=== PATIENT | male | born 1940 | race Caucasian/White ===

== ENCOUNTER 2020-02-18 13:18 | Emergency (ER) | payer MEDICARE, MEDICAID ==
[~2020-02-18] VITALS: Ht 160 cm; Wt 53.2 kg
[~2020-02-18 13:18] MED LIST: OMEP-84 PO
[2020-02-18] MEDS ORDERED: pantoprazole 40mg Tablet.DR PO ONE (13:40)
[2020-02-18] MEDS ORDERED: mag hydrox/Alum hydrox/simeth 30ml oral suspension PO ONE (13:40)
[2020-02-18] MEDS ORDERED: ondansetron 4mg rapidly disintigrating tab PO ONE (13:40)
[2020-02-18 14:17] LABS: BASOPHILS % (AUTO) 0.3 % (0-1); EOSINOPHILS % (AUTO) 0.2 % (0-6); HEMATOCRIT 46.8 % (42.0-52.0); HEMOGLOBIN 16.1 g/dl (14.0-17.9); LYMPHOCYTES # (AUTO) 0.9 X10'3 (1.1-4.8); LYMPHOCYTES % (AUTO) 9.5 % (21-51); MEAN CORPUSCULAR HEMOGLOBIN 33.1 PG (27.0-31.0); MEAN CORPUSCULAR HGB CONC 34.4 g/dL (33.0-36.5); MEAN CORPUSCULAR VOLUME 96.3 FL (78-98); MEAN PLATELET VOLUME 7.9 FL (7.4-10.4); MONOCYTES # (AUTO) 0.5 X10'3 (0-0.9); MONOCYTES % (AUTO) 5.5 % (2-12); NEUTROPHILS # (AUTO) 8.1 X10'3 (1.8-7.7); NEUTROPHILS % (AUTO) 84.5 % (42-75); PLATELET COUNT 218 X10'3 (140-440); RED BLOOD COUNT 4.86 X10'6 (4.70-6.10); RED CELL DISTRIBUTION WIDTH 13.4 % (11.5-14.5); WHITE BLOOD COUNT 9.5 X10'3 (4.5-11.0)
[2020-02-18 14:33] LABS: ALANINE AMINOTRANSFERASE 23 U/L (12-78); ALBUMIN 4.4 G/DL (3.4-5.0); ALBUMIN/GLOBULIN RATIO 1.2 (1.1-1.5); ALKALINE PHOSPHATASE 85 IU/L (46-116); ANION GAP 11 (8-16); ASPARTATE AMINO TRANSFERASE 19 U/L (10-37); BILIRUBIN,TOTAL 0.6 MG/DL (0.1-1.0); BLOOD UREA NITROGEN 18 MG/DL (7-18); BUN/CREATININE RATIO 20.2 (5.4-32.0); CALCIUM 10.2 MG/DL (8.5-10.1); CHLORIDE 96 MMOL/L (99-107); CREATININE 0.89 MG/DL (0.60-1.10); GLUCOSE 138 MG/DL (70-104); LIPASE 88 U/L (73-393); POTASSIUM 3.3 MMOL/L (3.5-5.1); SODIUM 142 MMOL/L (135-145); TOTAL CARBON DIOXIDE 35.1 MMOL/L (24-32); TOTAL PROTEIN 8.2 G/DL (6.4-8.2); eGFR 83 ML/MIN
[2020-02-18] MEDS ORDERED: ONDA4TAB6 PO (15:05)
[2020-02-18] MEDS ORDERED: PANT-47 PO (15:05)
== END 2020-02-18 15:38 | disposition home or self-care (01) ==
LOC: ER 13:19
DX: K21.9 Gastro-esophageal reflux disease without esophagitis (principal); R09.89 Other specified symptoms and signs involving the circulatory and respiratory systems; R10.84 Generalized abdominal pain; R51.9 Headache, unspecified; R11.2 Nausea with vomiting, unspecified; R53.83 Other fatigue; F17.200 Nicotine dependence, unspecified, uncomplicated; Z98.890 Other specified postprocedural states; Z87.11 Personal history of peptic ulcer disease; Z72.89 Other problems related to lifestyle; Z79.899 Other long term (current) drug therapy
CPT/HCPCS: 36415; 80053; 83690; 85025; 99284

== ENCOUNTER 2020-08-15 07:49 | Inpatient (IN) | payer OTHER, MEDICAID ==
[2020-08-10 10:34] LABS: PRE OP INR 1.1 INR
[2020-08-10 10:35] LABS: BASOPHILS # (AUTO) 0.1 X10'3 (0-0.2); BASOPHILS % (AUTO) 1.3 % (0-1); EOSINOPHILS # (AUTO) 0.1 X10'3 (0-0.9); EOSINOPHILS % (AUTO) 2.1 % (0-6); LYMPHOCYTES # (AUTO) 1.4 X10'3 (1.1-4.8); LYMPHOCYTES % (AUTO) 19.7 % (21-51); MEAN CORPUSCULAR HEMOGLOBIN 32.7 PG (27.0-31.0); MEAN CORPUSCULAR HGB CONC 33.8 g/dL (33.0-36.5); MEAN CORPUSCULAR VOLUME 96.6 FL (78-98); MEAN PLATELET VOLUME 8.2 FL (7.4-10.4); MONOCYTES # (AUTO) 0.8 X10'3 (0-0.9); MONOCYTES % (AUTO) 11.8 % (2-12); NEUTROPHILS # (AUTO) 4.6 X10'3 (1.8-7.7); NEUTROPHILS % (AUTO) 65.1 % (42-75); PRE OP HEMATOCRIT 41.5 % (42.0-52.0); PRE OP PLATELET COUNT 201 X10'3 (140-440); RED CELL DISTRIBUTION WIDTH 14.9 % (11.5-14.5)
[2020-08-10 10:49] LABS: ALBUMIN 3.6 G/DL (3.4-5.0); BLOOD UREA NITROGEN 22 MG/DL (7-18); BUN/CREATININE RATIO 27.5 (5.4-32.0); CALCIUM 8.7 MG/DL (8.5-10.1); CHLORIDE 104 MMOL/L (99-107); PRE OP ALT 24 U/L (30-65); PRE OP ANION GAP 8 (8-16); PRE OP AST 15 U/L (10-37); PRE OP BILIRUB, TOTAL 0.3 MG/DL (0.0-1.0); PRE OP GLUCOSE 101 MG/DL (70-104); PRE OP POTASSIUM 4.4 MMOL/L (3.4-5.1); PRE OP SODIUM 141 MMOL/L (135-145); TOTAL CARBON DIOXIDE 29.4 MMOL/L (24-32); TOTAL PROTEIN 7.1 G/DL (6.4-8.2); eGFR > 90 ML/MIN
[2020-08-10 11:17] LABS: ALKALINE PHOSPHATASE 90 IU/L (46-116)
[~2020-08-15] VITALS: Ht 162.6 cm; Wt 53.3 kg
[2020-08-15] VITALS (13 sets, daily range): BP systolic 126–157; BP diastolic 73–98
[~2020-08-15 07:49] MED LIST changes: +ACET-3209 PO; +NAPR220C15 PO; -OMEP-84 PO; +PANT-47 PO; +VANCOMYCIN 1GM/200ML IVPB 200 ML IV ONE; +albuterol 2.5 MG/3 ML nebule NEB ONE; +cefazolin/dext.iso 2gm/100ml IV ONE; +famotidine 20mg tablet PO ONE; +ringers solution, lacted 1,000 ML IV SCH; +tranexamic acid 1gm/0.7% sal. 100 ML IV ONE
[2020-08-15] MEDS ORDERED: sevoflurane 250ml liquid IH ONE (09:55)
[2020-08-15] MEDS ORDERED: fentaNYL/PF 50MCG/1 ML 2ML syringe ONE (10:04)
[2020-08-15] MEDS ORDERED: MIDAZolam 1 MG/ML 5ML VIAL ONE (10:04)
[2020-08-15] MEDS ORDERED: ROPIVAcaine 0.5% (5mg/ml) 30ml vial ONE (10:04)
[2020-08-15] MEDS ORDERED: propofol inj 20 ML IV ONE (10:21)
[2020-08-15] MEDS ORDERED: LIDOcaine 1%/PF 5ML 10 MG/ML VIAL ONE ×2 (10:21)
[2020-08-15] MEDS ORDERED: ondansetron/PF 4mg/2ml inj ONE (10:43)
[2020-08-15] MEDS ORDERED: dexamethasone sod phosphate 4mg/ml inj. ONE (10:43)
[2020-08-15] MEDS ORDERED: ringers solution, lacted 1,000 ML IV SCH (11:35)
[2020-08-15] MEDS ORDERED: meperidine/PF 25mg/ml syringe IV PRN ×3 (11:35)
[2020-08-15] MEDS ORDERED: morphine 2 MG/ML inj. syringe IV PRN (11:35)
[2020-08-15] MEDS ORDERED: ondansetron/PF 4mg/2ml inj IV PRN ×2 (11:35→13:30)
[2020-08-15] MEDS ORDERED: morphine 4 MG/ML inj SYRINge IV PRN (11:35)
[2020-08-15] MEDS ORDERED: proCHLORperazine 10 MG/2 ml inj IV PRN (11:35)
[2020-08-15] MEDS ORDERED: vancomycin 1,000mg inj ONE (12:44)
--- NOTE | 2020-08-15 13:20 | NUR ---
Received from OR via , accompanied by Anesthesiologist and report given by Anesthesiolgist. PATIENT WAKING UP, DENIES PAIN, V/S WNL, NEUROVASCULAR CHECKS INTACT. 20G LUE. RIGHT SHOULDER DRESSING CDI IN SLING. SCD ON.
[2020-08-15] MEDS ORDERED: diphenhydrAMINE 25mg capsule PO PRN ×2 (13:30)
[2020-08-15] MEDS ORDERED: HYDROcodone/acetaminophen 10/325mg tab PO PRN (13:30)
[2020-08-15] MEDS ORDERED: magnesium hydroxide 30ml (MOM) UD suspension PO PRN (13:30)
[2020-08-15] MEDS ORDERED: acetaminophen 325mg tablet PO PRN (13:30)
[2020-08-15] MEDS ORDERED: bisacodyl 10mg suppository rectal RC PRN (13:30)
--- NOTE | 2020-08-15 14:10 | NUR ---
PATIENT A&OX4, DENIES PAIN, V/S WNL, NEUROVASCULAR CHECKS INTACT. 20G LUE. RIGHT SHOULDER DRESSING CDI IN SLING. SCD ON. PATIENT TAKEN TO 4014B WITH ALL BELONGINGS AND REPORT GIVEN TO CHARLA HARVEY WHO HAS TAKEN OVER PATIENT CARE,.
[2020-08-15] MEDS: potassium Cl 20mEq in NS 1,000 ML IV SCH (18:53)
--- NOTE | 2020-08-15 18:55 | NUR ---
Received report from Regina Dean.
[2020-08-15] MEDS: ceFAZolin/D5W- 1GM premix 50 ML IV SCH (18:58)
[2020-08-15] MEDS: pantoprazole 40mg Tablet.DR PO SCH (19:50)
[2020-08-15] MEDS: HYDROcodone/acetaminophen 10/325mg tab PO PRN ×2 (19:51→23:22)
[2020-08-15] MEDS ORDERED: VANCOMYCIN 1GM/200ML IVPB 200 ML IV SCH (20:00)
[2020-08-15] MEDS ORDERED: vancomycin/NS 1 GM ADD-VANTAGE 250 ML IV SCH (20:00)
[2020-08-15] MEDS ORDERED: sennosides 8.6mg tablet PO SCH (21:00)
--- NOTE | 2020-08-15 23:45 | NUR ---
Call to Dr. Corona re: pt surgical wound and the persistent bloody drainage with my attempt to slow/collect with ice and abd pads. Dr. Corona ok'd the changing of the dressing on the right shoulder with 4x4's and abd pads and applying a shoulder wrap. Surgical site not well visible with blood stained silver dressing. No bruising noted except for under R arm noted.
[2020-08-16] MEDS: HYDROmorphone 1 mg/ml syringe IV PRN ×2 (00:40→05:40)
[2020-08-16] MEDS: ceFAZolin/D5W- 1GM premix 50 ML IV SCH (00:42)
[2020-08-16 01:30] VITALS: BP 133/80
--- NOTE | 2020-08-16 01:36 | NUR ---
Vitals taken at 1800. Addendum: 08/16/20 at 0139 by Nataly Tinajero RN Amended: Links added.
--- NOTE | 2020-08-16 02:00 | NUR ---
Surgical site CDI.
[2020-08-16] MEDS: HYDROcodone/acetaminophen 10/325mg tab PO PRN ×3 (03:45→15:19)
--- NOTE | 2020-08-16 03:50 | NUR ---
Pt called for pain meds. now there is a silver dollar size blood stain on the shoulder wrap. encouraged pt not to use arm.
[2020-08-16 06:00] VITALS: BP 144/97
[2020-08-16] MEDS: potassium Cl 20mEq in NS 1,000 ML IV SCH (06:13)
--- NOTE | 2020-08-16 06:26 | NUR ---
Report to Regina HARVEY.
[2020-08-16] MEDS: pantoprazole 40mg Tablet.DR PO SCH (08:10)
[2020-08-16 10:00] VITALS: BP 144/97
--- NOTE | 2020-08-16 12:18 | NUR ---
Joint Replacement Consult: Pt s/p shoulder surgery this admit and seen by VICTORIANO for written/verbal high protein ed w/ RD contact information provided. Pt reports good appetite and drinks ONS at home. Addendum: 08/16/20 at [address] Amended: Links added.
[2020-08-16] MEDS ORDERED: OXYC-150 PO (12:49)
[2020-08-16] MEDS ORDERED: ASPI81TA52 PO (12:49)
== END 2020-08-16 15:50 | disposition home or self-care (01) | DRG 483 ==
LOC: PAS 07:49 → ORTHO 4S 13:29 → PAS 16:59 → ORTHO 4S 17:00
PROVIDERS: ADMIT Orthopaedic Surgery; ATTEND Orthopaedic Surgery
PROC: 3E0T3BZ Introduction of Anesthetic Agent into Peripheral Nerves and Plexi, Percutaneous Approach (ICD-10-PCS; 2020-08-15)
PROC: 3E0T33Z Introduction of Anti-inflammatory into Peripheral Nerves and Plexi, Percutaneous Approach (ICD-10-PCS; 2020-08-15)
PROC: 0RRJ00Z Replacement of Right Shoulder Joint with Reverse Ball and Socket Synthetic Substitute, Open Approach (ICD-10-PCS; principal; 2020-08-15 09:55)
DX: M75.101 Unspecified rotator cuff tear or rupture of right shoulder, not specified as traumatic (principal); M19.011 Primary osteoarthritis, right shoulder; Z79.899 Other long term (current) drug therapy
CPT/HCPCS: 36415; 80053; 82948; 85025; 85610; 85730; 86885; 86900; 86901; 86920; 87081; 93005; 94640; 94664; 94760; 97116; 97161; 97530; A4215; A4565; A4618; A6253; A7000; A9272; C1776; G0378; J0690; J1100; J1170; J2250; J2405; J2704; J2795; J3010; J3370; J3480; J7120; Q0163

== ENCOUNTER 2022-06-15 02:58 | Observation (INO) | payer OTHER, MEDICAID ==
[~2022-06-15] VITALS: Ht 165.1 cm; Wt 54.5 kg
[~2022-06-15 02:58] MED LIST changes: -ACET-3209 PO; -NAPR220C15 PO; +OXYC-150 PO; -VANCOMYCIN 1GM/200ML IVPB 200 ML IV ONE; -albuterol 2.5 MG/3 ML nebule NEB ONE; -cefazolin/dext.iso 2gm/100ml IV ONE; -famotidine 20mg tablet PO ONE; -ringers solution, lacted 1,000 ML IV SCH; -tranexamic acid 1gm/0.7% sal. 100 ML IV ONE
[2022-06-15] MEDS ORDERED: mag hydrox/Alum hydrox/simeth 30ml oral suspension PO ONE (05:00)
[2022-06-15] MEDS ORDERED: LIDOcaine Viscous 15ml cup MM ONE (05:00)
[2022-06-15] MEDS ORDERED: aspirin 81mg tab.chew PO ONE (05:00)
[2022-06-15] MEDS ORDERED: ondansetron/PF 4mg/2ml inj IV ONE (05:00)
[2022-06-15] MEDS ORDERED: amLODIPine 5mg tablet PO ONE (05:50)
[2022-06-15] MEDS ORDERED: hydrALAZINE 20mg/ml inj. IV ONE (05:50)
--- NOTE | 2022-06-15 05:52 | NUR ---
not able to get the spo2 to work on his fingers, cool and dusky. Couldn't get it on his ears either. Was able to clip it to his nare and he is 97%. He is hypertensive. MD aware.
[2022-06-15 06:07] LABS: ALANINE AMINOTRANSFERASE 17 U/L (12-78); ALBUMIN 4.4 G/DL (3.4-5.0); ALBUMIN/GLOBULIN RATIO 1.2 (1.1-1.5); ALKALINE PHOSPHATASE 85 IU/L (46-116); ANION GAP 9 (8-16); ASPARTATE AMINO TRANSFERASE 15 U/L (10-37); BILIRUBIN,TOTAL 0.6 MG/DL (0.1-1.0); BLOOD UREA NITROGEN 21 MG/DL (7-18); BUN/CREATININE RATIO 22.3 (10.0-20.0); CALCIUM 9.7 MG/DL (8.5-10.1); CHLORIDE 96 MMOL/L (99-107); CREATININE 0.94 MG/DL (0.60-1.10); GLUCOSE 169 MG/DL (70-104); POTASSIUM 3.5 MMOL/L (3.5-5.1); SODIUM 138 MMOL/L (135-145); TOTAL CARBON DIOXIDE 33.1 MMOL/L (24-32); TOTAL PROTEIN 8.1 G/DL (6.4-8.2); eGFR 77 ML/MIN
[2022-06-15 06:15] LABS: BASOPHILS # (AUTO) 0.1 X10'3 (0-0.2); BASOPHILS % (AUTO) 0.5 % (0-1); EOSINOPHILS % (AUTO) 0.2 % (0-6); HEMATOCRIT 45.1 % (42.0-52.0); HEMOGLOBIN 15.3 g/dl (14.0-17.9); LYMPHOCYTES # (AUTO) 1.5 X10'3 (1.1-4.8); LYMPHOCYTES % (AUTO) 10.7 % (21-51); MEAN CORPUSCULAR HEMOGLOBIN 30.6 PG (27.0-31.0); MEAN CORPUSCULAR HGB CONC 33.8 g/dL (33.0-36.5); MEAN CORPUSCULAR VOLUME 90.4 FL (78-98); MEAN PLATELET VOLUME 8.1 FL (7.4-10.4); MONOCYTES # (AUTO) 1.1 X10'3 (0-0.9); MONOCYTES % (AUTO) 7.4 % (2-12); NEUTROPHILS # (AUTO) 11.5 X10'3 (1.8-7.7); NEUTROPHILS % (AUTO) 81.2 % (42-75); PLATELET COUNT 267 X10'3 (140-440); RED BLOOD COUNT 4.99 X10'6 (4.70-6.10); RED CELL DISTRIBUTION WIDTH 15.3 % (11.5-14.5); WHITE BLOOD COUNT 14.2 X10'3 (4.5-11.0)
[2022-06-15 06:16] LABS: MAGNESIUM 2.3 MG/DL (1.5-2.4)
[2022-06-15] MEDS ORDERED: nitroGLYCERIN 0.4mg SUBLingual tab SL PRN (07:25)
[2022-06-15] MEDS: normal saline 500ml IV soln 500 ML IV SCH ×7 (07:43→19:32)
[2022-06-15] MEDS ORDERED: mag hydrox/Alum hydrox/simeth 30ml oral suspension PO PRN (08:05)
[2022-06-15] MEDS ORDERED: morphine 2 MG/ML inj. syringe IV PRN ×2 (08:05)
[2022-06-15] MEDS ORDERED: magnesium hydroxide 30ml (MOM) UD suspension PO PRN (08:05)
[2022-06-15] MEDS ORDERED: HYDROcodone/acetaminophen 5mg/325mg tablet PO PRN (08:05)
[2022-06-15] MEDS ORDERED: acetaminophen 325mg tablet PO PRN ×2 (08:05)
[2022-06-15] MEDS ORDERED: iohexol 300mg/ml 100ml inj. ONE (08:38)
[2022-06-15] MEDS ORDERED: pantoprazole 40mg IV 40 MG in normal saline 100ml IV soln 100 ML IV STA (09:47)
[2022-06-15] MEDS: ondansetron/PF 4mg/2ml inj IV PRN (10:11)
[2022-06-15] MEDS ORDERED: pantoprazole 40MG/NS 100ML BAG 100 ML IV ONE (10:30)
[2022-06-15] MEDS ORDERED: TRAZ-251 PO (10:36)
[2022-06-15] MEDS ORDERED: HYDR-3965 PO (10:36)
[2022-06-15] MEDS ORDERED: PANT40TA54 PO (10:36)
--- NOTE | 2022-06-15 13:43 | NUR ---
GI LAB DOWN TO BRING PATIENT TO GI LAB FOR GI STUDY. PT REQUESTED LIDOCAINE AND MYLANTA BUT GI LAB PERSONNEL STATED THEY DID NOT WANT IT GIVEN DUE THE PROCEDURE AND THE NEED TO GIVE LIDOCAINE TO PATIENT DURING PROCEDURE.
[2022-06-15 13:50] VITALS: BP 168/113
[2022-06-15] MEDS ORDERED: fentaNYL/PF 50MCG/1 ML 2ML syringe ONE (14:10)
[2022-06-15] MEDS ORDERED: LIDOcaine Viscous 15ml cup ONE (14:11)
[2022-06-15] MEDS ORDERED: MIDAZolam 1 MG/ML 5ML VIAL ONE (14:11)
--- NOTE | 2022-06-15 14:37 | NUR ---
pT IN GI LAB AND WILL RETURN TO THE ER.
[2022-06-15 16:05] VITALS: BP 165/104
[2022-06-15 16:15] VITALS: BP 162/64
[2022-06-15 16:25] VITALS: BP 150/76
[2022-06-15 16:35] VITALS: BP 167/98
[2022-06-15 19:45] LABS: H PYLORI ANTIBODY NEGATIVE (Neg)
--- NOTE | 2022-06-15 20:12 | NUR ---
Received phone report from Bekah HARVEY in ER.
--- NOTE | 2022-06-15 20:20 | NUR ---
Patient arrived to floor by w/c at this time.
[2022-06-15] MEDS: docusate sod 100mg capsule PO SCH (21:24)
[2022-06-15] MEDS: lisinopril 20mg tablet PO SCH (21:24)
[2022-06-15 22:30] VITALS: BP 164/105
[2022-06-16] MEDS: ondansetron/PF 4mg/2ml inj IV PRN (00:27)
--- NOTE | 2022-06-16 00:30 | NUR ---
Pt retching and with hot flashes, medicated him with Zofran. He had about 250ml's of dark brown/red emesis.
--- NOTE | 2022-06-16 03:32 | NUR ---
Agree with Lauri Prater RN's orientee charting, medication administration and process plans.
--- NOTE | 2022-06-16 05:18 | NUR ---
Problems reprioritized. Patient report given, questions answered & plan of care reviewed with Breezy Blood RN.
[2022-06-16 06:00] VITALS: BP 155/103
--- NOTE | 2022-06-16 06:24 | NUR ---
Problems reprioritized. Patient report given, questions answered & plan of care reviewed with Breezy HARVEY.
[2022-06-16 06:29] LABS: BASOPHILS % (AUTO) 0.2 % (0-1); EOSINOPHILS % (AUTO) 0.1 % (0-6); HEMATOCRIT 40.5 % (42.0-52.0); HEMOGLOBIN 13.5 g/dl (14.0-17.9); LYMPHOCYTES % (AUTO) 7.5 % (21-51); MEAN CORPUSCULAR HEMOGLOBIN 30.2 PG (27.0-31.0); MEAN CORPUSCULAR HGB CONC 33.3 g/dL (33.0-36.5); MEAN CORPUSCULAR VOLUME 90.7 FL (78-98); MEAN PLATELET VOLUME 7.8 FL (7.4-10.4); MONOCYTES # (AUTO) 0.9 X10'3 (0-0.9); MONOCYTES % (AUTO) 6.5 % (2-12); NEUTROPHILS # (AUTO) 11.6 X10'3 (1.8-7.7); NEUTROPHILS % (AUTO) 85.7 % (42-75); PLATELET COUNT 217 X10'3 (140-440); RED BLOOD COUNT 4.46 X10'6 (4.70-6.10); RED CELL DISTRIBUTION WIDTH 15.3 % (11.5-14.5); WHITE BLOOD COUNT 13.5 X10'3 (4.5-11.0)
[2022-06-16 06:35] LABS: ALBUMIN 3.4 G/DL (3.4-5.0); ANION GAP 8 (8-16); BLOOD UREA NITROGEN 19 MG/DL (7-18); BUN/CREATININE RATIO 27.9 (10.0-20.0); CALCIUM 8.4 MG/DL (8.5-10.1); CHLORIDE 99 MMOL/L (99-107); CREATININE 0.68 MG/DL (0.60-1.10); GLUCOSE 127 MG/DL (70-104); POTASSIUM 3.2 MMOL/L (3.5-5.1); SODIUM 135 MMOL/L (135-145); TOTAL CARBON DIOXIDE 28.1 MMOL/L (24-32); eGFR > 90 ML/MIN
[2022-06-16] MEDS: sucralfate 1 gm tablet PO SCH ×4 (07:22→20:52)
[2022-06-16] MEDS: metoclopramide 5 mg/ml inj IV SCH ×4 (07:23→20:52)
[2022-06-16] MEDS: lisinopril 20mg tablet PO SCH (08:00)
[2022-06-16] MEDS ORDERED: pantoprazole 40mg IV 40 MG in normal saline 100ml IV soln 100 ML IV SCH (08:00)
[2022-06-16] MEDS: pantoprazole 40MG/NS 100ML BAG 100 ML IV SCH ×2 (08:37→20:52)
[2022-06-16] MEDS: docusate sod 100mg capsule PO SCH ×2 (08:38→20:51)
[2022-06-16 10:00] VITALS: BP 103/73
[2022-06-16 14:00] VITALS: BP 96/62
[2022-06-16 18:00] VITALS: BP 107/74
[2022-06-16 22:00] VITALS: BP 137/98
--- NOTE | 2022-06-16 23:02 | NUR ---
Student documentation: I have reviewed and agree with all interventions, assessments performed and documented by [employer] student.
[2022-06-17 02:00] VITALS: BP 153/95
[2022-06-17 06:00] VITALS: BP 135/85
--- NOTE | 2022-06-17 06:14 | NUR ---
Problems reprioritized. Patient report given, questions answered & plan of care reviewed with Leni ZEPEDA.
--- NOTE | 2022-06-17 06:43 | NUR ---
Patient in room ORTHO 4010. I have received report from WES Estrada and had the opportunity to ask questions and assume patient care.
[2022-06-17] MEDS: sucralfate 1 gm tablet PO SCH (07:26)
[2022-06-17 07:27] LABS: BASOPHILS # (AUTO) 0.1 X10'3 (0-0.2); BASOPHILS % (AUTO) 0.7 % (0-1); EOSINOPHILS # (AUTO) 0.1 X10'3 (0-0.9); EOSINOPHILS % (AUTO) 0.8 % (0-6); HEMATOCRIT 38.8 % (42.0-52.0); HEMOGLOBIN 13.1 g/dl (14.0-17.9); LYMPHOCYTES # (AUTO) 1.6 X10'3 (1.1-4.8); LYMPHOCYTES % (AUTO) 19.9 % (21-51); MEAN CORPUSCULAR HEMOGLOBIN 30.7 PG (27.0-31.0); MEAN CORPUSCULAR HGB CONC 33.6 g/dL (33.0-36.5); MEAN CORPUSCULAR VOLUME 91.2 FL (78-98); MEAN PLATELET VOLUME 7.8 FL (7.4-10.4); MONOCYTES # (AUTO) 0.8 X10'3 (0-0.9); MONOCYTES % (AUTO) 10.2 % (2-12); NEUTROPHILS # (AUTO) 5.7 X10'3 (1.8-7.7); NEUTROPHILS % (AUTO) 68.4 % (42-75); PLATELET COUNT 213 X10'3 (140-440); RED BLOOD COUNT 4.25 X10'6 (4.70-6.10); RED CELL DISTRIBUTION WIDTH 15.2 % (11.5-14.5); WHITE BLOOD COUNT 8.3 X10'3 (4.5-11.0)
[2022-06-17] MEDS: lisinopril 20mg tablet PO SCH (07:27)
[2022-06-17] MEDS: docusate sod 100mg capsule PO SCH (07:27)
[2022-06-17 07:42] LABS: ALBUMIN 3.4 G/DL (3.4-5.0); ANION GAP 6 (8-16); BLOOD UREA NITROGEN 22 MG/DL (7-18); BUN/CREATININE RATIO 25.9 (10.0-20.0); CALCIUM 8.7 MG/DL (8.5-10.1); CHLORIDE 101 MMOL/L (99-107); CREATININE 0.85 MG/DL (0.60-1.10); GLUCOSE 99 MG/DL (70-104); POTASSIUM 3.3 MMOL/L (3.5-5.1); SODIUM 138 MMOL/L (135-145); TOTAL CARBON DIOXIDE 30.9 MMOL/L (24-32); eGFR 87 ML/MIN
[2022-06-17] MEDS: metoclopramide 5 mg/ml inj IV SCH (08:52)
[2022-06-17] MEDS: pantoprazole 40MG/NS 100ML BAG 100 ML IV SCH (08:52)
[2022-06-17 10:00] VITALS: BP 136/83
[2022-06-17] MEDS ORDERED: SUCR1TAB34 PO (11:23)
[2022-06-17] MEDS ORDERED: METO5TAB85 PO ×2 (11:23)
--- NOTE | 2022-06-17 12:42 | NUR ---
Patient discharge home with spouse. Discharge information was provided and review with patient with spouse present whom both verbalize understanding. Patient was assisted to personal vehicle with all belongings by staff.
== END 2022-06-17 12:42 | disposition home or self-care (01) ==
LOC: ER 02:58 → ED HOLD 08:03 → ORTHO 4S 20:22
PROVIDERS: ADMIT Internal Medicine; ATTEND Internal Medicine
DX: K21.00 Gastro-esophageal reflux disease with esophagitis, without bleeding (principal); K31.5 Obstruction of duodenum; K57.30 Diverticulosis of large intestine without perforation or abscess without bleeding; R06.6 Hiccough; Z87.891 Personal history of nicotine dependence; Z79.899 Other long term (current) drug therapy; Z96.611 Presence of right artificial shoulder joint; Z87.11 Personal history of peptic ulcer disease; Z96.612 Presence of left artificial shoulder joint
CPT/HCPCS: 36415; 43239; 43245; 71045; 74177; 80048; 80053; 83605; 83735; 83880; 84484; 85025; 85610; 86677; 87081; 96361; 96365; 96366; 96375; 96376; 99284; C1726; C9113; G0378; J0360; J2250; J2270; J2405; J2765; J3010; J3490; J7030; J7040; Q9967; 99152; A4620

== ENCOUNTER 2023-08-31 13:58 | Emergency (ER) | payer MEDICARE, MEDICAID ==
[~2023-08-31] VITALS: Ht 160 cm; Wt 49.8 kg
[~2023-08-31 13:58] MED LIST changes: +CELE-193 PO; +METO5TAB98 PO; -OXYC-150 PO; -PANT-47 PO; +PANT40TA54 PO; +TRAZ-251 PO
[2023-08-31 14:02] VITALS: TEMP 96.6
[2023-08-31 14:45] LABS: BASOPHILS # (AUTO) 0.1 X10'3 (0-0.2); BASOPHILS % (AUTO) 0.9 % (0-1); EOSINOPHILS % (AUTO) 0.4 % (0-6); HEMATOCRIT 38.5 % (42.0-52.0); HEMOGLOBIN 12.6 g/dl (14.0-17.9); LYMPHOCYTES # (AUTO) 1.2 X10'3 (1.1-4.8); LYMPHOCYTES % (AUTO) 14.5 % (21-51); MEAN CORPUSCULAR HEMOGLOBIN 27.7 PG (27.0-31.0); MEAN CORPUSCULAR HGB CONC 32.8 g/dL (33.0-36.5); MEAN CORPUSCULAR VOLUME 84.4 FL (78-98); MEAN PLATELET VOLUME 8.1 FL (7.4-10.4); MONOCYTES # (AUTO) 0.9 X10'3 (0-0.9); MONOCYTES % (AUTO) 10.5 % (2-12); NEUTROPHILS # (AUTO) 6.2 X10'3 (1.8-7.7); NEUTROPHILS % (AUTO) 73.7 % (42-75); PLATELET COUNT 312 X10'3 (140-440); RED BLOOD COUNT 4.56 X10'6 (4.70-6.10); RED CELL DISTRIBUTION WIDTH 16.7 % (11.5-14.5); WHITE BLOOD COUNT 8.3 X10'3 (4.5-11.0)
[2023-08-31 14:50] LABS: ALANINE AMINOTRANSFERASE 18 U/L (12-78); ALBUMIN 4.2 G/DL (3.4-5.0); ALBUMIN/GLOBULIN RATIO 1.1 (1.1-1.5); ALKALINE PHOSPHATASE 84 IU/L (46-116); ANION GAP 11 (8-16); ASPARTATE AMINO TRANSFERASE 12 U/L (10-37); BILIRUBIN,TOTAL 0.6 MG/DL (0.1-1.0); BLOOD UREA NITROGEN 21 MG/DL (7-18); BUN/CREATININE RATIO 21.2 (10.0-20.0); CHLORIDE 98 MMOL/L (99-107); CREATININE 0.99 MG/DL (0.60-1.10); GLUCOSE 118 MG/DL (70-104); POTASSIUM 3.5 MMOL/L (3.5-5.1); SODIUM 139 MMOL/L (135-145); TOTAL CARBON DIOXIDE 29.6 MMOL/L (24-32); TOTAL PROTEIN 8.1 G/DL (6.4-8.2); eCRCL 42 ML/MIN; eGFR 73 ML/MIN
[2023-08-31 14:58] LABS: LIPASE 28 U/L (16-77); PRO BRAIN NATRIURETIC PEPTIDE 429 PG/ML (0-450)
[2023-08-31] MEDS ORDERED: SUCR1TAB34 PO (15:01)
[2023-08-31] MEDS ORDERED: CYCL-117 PO (15:08)
[2023-08-31] MEDS: ketorolac tromethamine 15mg/ml inj. IM ONE (15:33)
[2023-08-31] MEDS: ondansetron/PF 4mg/2ml inj IV ONE (15:34)
[2023-08-31] MEDS: pantoprazole 40mg Tablet.DR PO ONE (15:40)
[2023-08-31] MEDS: metoclopramide 5 mg/ml inj IV ONE (15:56)
[2023-08-31] MEDS ORDERED: METO10TA3 PO (16:58)
[2023-08-31 17:10] VITALS: BP 176/103; PULSE 92; RESP 18; O2SAT 96
== END 2023-08-31 17:14 | disposition home or self-care (01) ==
LOC: ER 13:59
DX: K29.00 Acute gastritis without bleeding (principal); R11.2 Nausea with vomiting, unspecified; Z79.899 Other long term (current) drug therapy; Z98.890 Other specified postprocedural states; Z72.89 Other problems related to lifestyle
CPT/HCPCS: 36415; 71045; 80053; 83690; 83880; 84484; 85025; 93005; 96372; 96374; 96375; 99285; J1885; J2405; J2765

== ENCOUNTER 2024-04-06 09:13 | Emergency (ER) | payer MEDICARE, OTHER ==
[~2024-04-06] VITALS: Ht 160 cm; Wt 41.0 kg
[~2024-04-06 09:13] MED LIST changes: +CYCL-117 PO; +SUCR1TAB34 PO
[2024-04-06] MEDS: pantoprazole 40 MG vial IV ONE (09:48)
[2024-04-06] MEDS: normal saline 1000ml 1,000 ML IV ONE (09:48)
[2024-04-06] MEDS: ondansetron/PF 4mg/2ml inj IV ONE (09:48)
[2024-04-06 10:25] LABS: BILIRUBIN,URINE NEGATIVE (Neg); CLARITY,URINE CLOUDY (Clear); COLOR,URINE YELLOW (Yellow); GLUCOSE, URINE NEGATIVE (Neg); KETONES,URINE NEGATIVE (Neg); LEUKOCYTE ESTERASE ,URINE TRACE (Neg); NITRITES, URINE NEGATIVE (Neg); OCCULT BLOOD,URINE NEGATIVE (Neg); PH,URINE 7.5 (4.8-8.0); PROTEIN,URINE 30 mg/dl (Neg); UROBILINOGEN,URINE 0.2 E.U/dL (0.2-1.0)
[2024-04-06 10:27] LABS: BASOPHILS # (AUTO) 0.1 X10'3 (0-0.2); BASOPHILS % (AUTO) 0.6 % (0-1); EOSINOPHILS % (AUTO) 0.2 % (0-6); HEMATOCRIT 35.6 % (42.0-52.0); HEMOGLOBIN 12.1 g/dl (14.0-17.9); LYMPHOCYTES # (AUTO) 1.3 X10'3 (1.1-4.8); LYMPHOCYTES % (AUTO) 7.3 % (21-51); MEAN CORPUSCULAR HEMOGLOBIN 29.2 PG (27.0-31.0); MEAN CORPUSCULAR HGB CONC 34.1 g/dL (33.0-36.5); MEAN CORPUSCULAR VOLUME 85.6 FL (78-98); MEAN PLATELET VOLUME 7.5 FL (7.4-10.4); MONOCYTES # (AUTO) 1.2 X10'3 (0-0.9); NEUTROPHILS # (AUTO) 14.6 X10'3 (1.8-7.7); NEUTROPHILS % (AUTO) 84.9 % (42-75); PLATELET COUNT 302 X10'3 (140-440); RED BLOOD COUNT 4.15 X10'6 (4.70-6.10); WHITE BLOOD COUNT 17.2 X10'3 (4.5-11.0)
[2024-04-06 10:29] LABS: UA COLLECTION TYPE URINAL
[2024-04-06 10:31] LABS: BACTERIA,URINE 1+ /HPF (Neg); RBC,URINE 0-2 /HPF (0-2)
[2024-04-06 10:32] LABS: APTT 22 SECONDS (22-32); INR 1.1 INR; PROTHROMBIN TIME 11.6 SECONDS (9.0-12.0)
[2024-04-06 10:32] LABS: AMORPHOUS PHOSPHATES 4+; SQUAMOUS EPITHELIAL CELL,UR FEW /LPF (FEW); TRANSITIONAL EPI CELLS,URINE FEW /HPF
[2024-04-06 10:35] LABS: ALANINE AMINOTRANSFERASE 16 U/L (12-78); ALBUMIN 3.5 G/DL (3.4-5.0); ALBUMIN/GLOBULIN RATIO 1.1 (1.1-1.5); ALKALINE PHOSPHATASE 73 IU/L (46-116); ANION GAP 7 (8-16); ASPARTATE AMINO TRANSFERASE 11 U/L (10-37); BILIRUBIN,TOTAL 0.5 MG/DL (0.1-1.0); BLOOD UREA NITROGEN 48 MG/DL (7-18); BUN/CREATININE RATIO 39.7 (10.0-20.0); CALCIUM 9.7 MG/DL (8.5-10.1); CHLORIDE 90 MMOL/L (99-107); CREATININE 1.21 MG/DL (0.60-1.10); GLUCOSE 151 MG/DL (70-104); POTASSIUM 3.2 MMOL/L (3.5-5.1); SODIUM 130 MMOL/L (135-145); TOTAL CARBON DIOXIDE 32.8 MMOL/L (24-32); TOTAL PROTEIN 6.8 G/DL (6.4-8.2); eCRCL 28 ML/MIN; eGFR 58 ML/MIN
[2024-04-06] MEDS: dicyclomine 10 MG capsule PO ONE (11:36)
[2024-04-06] MEDS: mag hydrox/Alum hydrox/simeth 30ml oral suspension PO ONE (11:36)
[2024-04-06] MEDS: LIDOcaine 2% Viscous 15ml cup MM PRN (11:36)
[2024-04-06 13:17] LABS: OCCULT BLOOD STOOL NEGATIVE (Neg)
[2024-04-06 13:32] VITALS: BP 168/85; PULSE 105; RESP 16; TEMP 97.6; O2SAT 99
== END 2024-04-06 13:56 | disposition home or self-care (01) ==
LOC: ER 09:14
DX: R11.10 Vomiting, unspecified (principal); R06.6 Hiccough; Z98.890 Other specified postprocedural states; Z20.822 Contact with and (suspected) exposure to COVID-19
CPT/HCPCS: 36415; 71045; 74176; 80053; 81001; 82272; 85025; 85610; 85730; 86885; 86900; 86901; 87088; 87502; 87503; 87811; 93005; 96361; 96374; 96375; 99285; J2405; J2470; J7030

== ENCOUNTER 2024-04-16 19:28 | Emergency (ER) | payer MEDICARE, OTHER ==
[~2024-04-16] VITALS: Ht 160 cm; Wt 46.0 kg
[~2024-04-16 19:28] MED LIST changes: -CELE-193 PO; +EMPA10TA PO; +FERR-119 PO; +LISI5TAB22 PO; +METO-395 PO; +SPIR25TA PO
[2024-04-16 19:54] LABS: BASOPHILS # (AUTO) 0.1 X10'3 (0-0.2); EOSINOPHILS # (AUTO) 0.1 X10'3 (0-0.9); EOSINOPHILS % (AUTO) 1.2 % (0-6); HEMATOCRIT 32.5 % (42.0-52.0); HEMOGLOBIN 11.2 g/dl (14.0-17.9); LYMPHOCYTES # (AUTO) 1.3 X10'3 (1.1-4.8); LYMPHOCYTES % (AUTO) 13.7 % (21-51); MEAN CORPUSCULAR HEMOGLOBIN 29.6 PG (27.0-31.0); MEAN CORPUSCULAR HGB CONC 34.5 g/dL (33.0-36.5); MEAN CORPUSCULAR VOLUME 85.9 FL (78-98); MEAN PLATELET VOLUME 6.6 FL (7.4-10.4); MONOCYTES % (AUTO) 10.2 % (2-12); NEUTROPHILS # (AUTO) 6.9 X10'3 (1.8-7.7); NEUTROPHILS % (AUTO) 73.9 % (42-75); PLATELET COUNT 384 X10'3 (140-440); RED BLOOD COUNT 3.78 X10'6 (4.70-6.10); RED CELL DISTRIBUTION WIDTH 15.5 % (11.5-14.5); WHITE BLOOD COUNT 9.3 X10'3 (4.5-11.0)
[2024-04-16 20:09] LABS: ALANINE AMINOTRANSFERASE 14 U/L (12-78); ALBUMIN 3.4 G/DL (3.4-5.0); ALBUMIN/GLOBULIN RATIO 1.1 (1.1-1.5); ALKALINE PHOSPHATASE 74 IU/L (46-116); ANION GAP 10 (8-16); ASPARTATE AMINO TRANSFERASE 9 U/L (10-37); BILIRUBIN,TOTAL 0.5 MG/DL (0.1-1.0); BLOOD UREA NITROGEN 21 MG/DL (7-18); BUN/CREATININE RATIO 18.1 (10.0-20.0); CALCIUM 8.6 MG/DL (8.5-10.1); CHLORIDE 101 MMOL/L (99-107); CREATININE 1.16 MG/DL (0.60-1.10); GLUCOSE 108 MG/DL (70-104); LIPASE 45 U/L (16-77); POTASSIUM 3.8 MMOL/L (3.5-5.1); SODIUM 137 MMOL/L (135-145); TOTAL CARBON DIOXIDE 26.4 MMOL/L (24-32); TOTAL PROTEIN 6.5 G/DL (6.4-8.2); eCRCL 33 ML/MIN; eGFR 60 ML/MIN
[2024-04-16] MEDS ORDERED: iohexol 300mg/ml 100ml inj. ONE (20:45)
[2024-04-16] MEDS: acetaminophen 1,000mg/100ml IV 100 ML IV ONE (21:04)
[2024-04-16] MEDS: morphine 4 MG/ML inj SYRINge IV ONE (21:05)
[2024-04-16] MEDS: famotidine/PF 10 mg/ml inj IV ONE (21:06)
[2024-04-16] MEDS: ondansetron/PF 4mg/2ml inj IV ONE (21:06)
[2024-04-16] MEDS: normal saline 1000ml 1,000 ML IV ONE (21:06)
[2024-04-16 22:10] VITALS: TEMP 97.1
[2024-04-16 22:17] LABS: BILIRUBIN,URINE NEGATIVE (Neg); CLARITY,URINE SLIGHTLY CLOUDY (Clear); COLOR,URINE YELLOW (Yellow); GLUCOSE, URINE 500 mg/dl (Neg); KETONES,URINE 15 mg/dl (Neg); LEUKOCYTE ESTERASE ,URINE NEGATIVE (Neg); NITRITES, URINE NEGATIVE (Neg); OCCULT BLOOD,URINE NEGATIVE (Neg); PH,URINE 7.5 (4.8-8.0); PROTEIN,URINE TRACE mg/dl (Neg); UROBILINOGEN,URINE 0.2 E.U/dL (0.2-1.0)
[2024-04-16 22:30] LABS: UA COLLECTION TYPE URINAL
[2024-04-16 22:39] LABS: BACTERIA,URINE 3+ /HPF (Neg); RBC,URINE NONE SEEN /HPF (0-2); SQUAMOUS EPITHELIAL CELL,UR FEW /LPF (FEW)
[2024-04-16] MEDS ORDERED: LIDO15SO9 PO (22:45)
[2024-04-16] MEDS ORDERED: ONDA-245 PO (22:45)
[2024-04-16 22:52] VITALS: BP 186/145; PULSE 90; RESP 16; O2SAT 94
[2024-04-16] MEDS: metoprolol succinate 25mg (24-HOUR) SR. Tablet PO SCH (22:54)
[2024-04-16] MEDS: LIDOcaine 2% Viscous 15ml cup MM ONE (22:54)
[2024-04-16] MEDS: mag hydrox/Alum hydrox/simeth 30ml oral suspension PO ONE (22:54)
== END 2024-04-16 23:05 | disposition home or self-care (01) ==
LOC: ER 19:28
DX: K29.00 Acute gastritis without bleeding (principal); Z98.890 Other specified postprocedural states
CPT/HCPCS: 36415; 71260; 74177; 80053; 81001; 83690; 84484; 85025; 87088; 93005; 96361; 96374; 96375; 99285; A4615; J2270; J2405; J3490; J7030; Q9967

== ENCOUNTER 2024-06-11 11:01 | Inpatient (IN) | payer MEDICARE, OTHER ==
[~2024-06-11] VITALS: Ht 160 cm; Wt 54.1 kg
[~2024-06-11 11:01] MED LIST changes: +LIDO15SO9 PO; +ONDA-245 PO
--- NOTE | 2024-06-11 11:20 | ELECTROCARDIOGRAPH REPORT ---
[facility] Test Date: 2024-06-11 Test Time: 11:18:20 Pat Name: CINDI HYMAN Department: EMERGENCY ROOM Room: PSYCHIATRIC 2003 Gender: M Writer Editor: : 1940 Requested By: JAYLEN HALE Order Number: [id number] Reading MD: Dr. Michael Palacio Measurements Intervals [place] Rate: 96 P: 82 CT: 182 QRS: -79 QRSD: 91 T: 90 QT: 407 QTc: 515 Interpretive Statements Atrial-paced complexes Left anterior fascicular block Probable anteroseptal infarct, old Electronically Signed On 07-01-2024 11:00:[address] Michael Palacio Please click the below link to view image of tracing.
[2024-06-11 11:26] LABS: BASOPHILS # (AUTO) 0.1 X10'3 (0-0.2); BASOPHILS % (AUTO) 0.3 % (0-1); EOSINOPHILS % (AUTO) 0.1 % (0-6); HEMATOCRIT 40.9 % (42.0-52.0); HEMOGLOBIN 13.2 g/dl (14.0-17.9); LYMPHOCYTES # (AUTO) 2.3 X10'3 (1.1-4.8); LYMPHOCYTES % (AUTO) 11.2 % (21-51); MEAN CORPUSCULAR HEMOGLOBIN 29.9 PG (27.0-31.0); MEAN CORPUSCULAR HGB CONC 32.4 g/dL (33.0-36.5); MEAN CORPUSCULAR VOLUME 92.3 FL (78-98); MEAN PLATELET VOLUME 8.1 FL (7.4-10.4); MONOCYTES # (AUTO) 1.5 X10'3 (0-0.9); MONOCYTES % (AUTO) 7.4 % (2-12); NEUTROPHILS # (AUTO) 16.9 X10'3 (1.8-7.7); PLATELET COUNT 243 X10'3 (140-440); RED BLOOD COUNT 4.43 X10'6 (4.70-6.10); RED CELL DISTRIBUTION WIDTH 19.4 % (11.5-14.5); WHITE BLOOD COUNT 20.8 X10'3 (4.5-11.0)
[2024-06-11 11:39] LABS: ALANINE AMINOTRANSFERASE 24 U/L (12-78); ALBUMIN 2.9 G/DL (3.4-5.0); ALBUMIN/GLOBULIN RATIO 0.9 (1.1-1.5); ALKALINE PHOSPHATASE 73 IU/L (46-116); ANION GAP 28 (8-16); ASPARTATE AMINO TRANSFERASE 30 U/L (10-37); BILIRUBIN,TOTAL 0.4 MG/DL (0.1-1.0); BLOOD UREA NITROGEN 108 MG/DL (7-18); BUN/CREATININE RATIO 26.9 (10.0-20.0); CALCIUM 8.6 MG/DL (8.5-10.1); CHLORIDE 83 MMOL/L (99-107); CREATININE 4.02 MG/DL (0.60-1.10); GLUCOSE 140 MG/DL (70-104); POTASSIUM 4.2 MMOL/L (3.5-5.1); SODIUM 131 MMOL/L (135-145); TOTAL CARBON DIOXIDE 20.5 MMOL/L (24-32); TOTAL PROTEIN 6.3 G/DL (6.4-8.2); eCRCL 11 ML/MIN; eGFR 14 ML/MIN
[2024-06-11 11:46] LABS: PRO BRAIN NATRIURETIC PEPTIDE 4844 PG/ML (0-450)
--- NOTE | 2024-06-11 11:47 | RADIOLOGY REPORT ---
CHEST RADIOGRAPH Indication: CP Technique: Single frontal view of the chest was obtained COMPARISON: DI CHEST,SINGLE VIEW on DOS: 04/14/24, DI CHEST,SINGLE VIEW on DOS: 04/06/24, DI CHEST,SINGL E VIEW on DOS: 08/31/23, CHEST,SINGLE VIEW on DOS: 06/15/22 FINDINGS: Lines and Tubes: None Lungs: Clear Pleura: No effusion. No pneumothorax. Cardiomediastinal contours: Unremarkable Bones: Unremarkable IMPRESSION: No acute disease.
[2024-06-11 11:49] LABS: ANISOCYTOSIS 2+; PLATELET ESTIMATE NORMAL; TOTAL CELLS COUNTED 100
[2024-06-11 11:54] LABS: ELLIPTOCYTES FEW
--- NOTE | 2024-06-11 11:58 | Physician Documentation ---
History of Present Illness General Chief Complaint: Weakness Stated Complaint: WEAKNESS/GI BLEED Time Seen by MD: 11:49 Primary Medical Doctor: RENETTA Mode of Arrival: EMS History of Present Illness Initial Comments The patient is an 83-year-old male with a history of perforated peptic ulcer s/p repair 10 years ago, s/p segmental resection of ileum, chronic smoker, rheumatic fever. He was seen a month ago with GI bleeding secondary to acute gastritis. He comes in today with three day history of vomiting coffee-grounds and black stool. Medication Reconciliation Allergies: Coded Allergies: No Known Allergies (Unverified , 06/11/24) Scheduled Cyclobenzaprine HCl (Flexeril), 1 TABLET PO QHS, (Reported) Empagliflozin (Jardiance), 10 MG PO DAILY Empagliflozin (Jardiance), 1 TAB PO DAILY, (Reported) Empagliflozin (Jardiance), 1 TAB PO DAILY, (Reported) Ferrous Sulfate (Ferrous Sulfate), 1 TAB PO DAILY, (Reported) Lidocaine HCl (Lidocaine HCl Viscous), 5 ML PO Q8H Lisinopril (Lisinopril), 5 MG PO DAILY Metoclopramide* (Metoclopramide*), 1 TAB PO QID, (Reported) Metoprolol Succinate (Metoprolol Succinate), 25 MG PO DAILY Metoprolol Tartrate (Metoprolol Tartrate), 1 TAB PO DAILY, (Reported) Ondansetron 8mg ODT (Ondansetron Odt), 1 TAB PO Q6H Pantoprazole Sodium (Pantoprazole Sodium), 1 TAB PO DAILY, (Reported) Pantoprazole Sodium (Pantoprazole Sodium), 40 MG PO BID Sacubitril/Valsartan (Entresto 24 mg-26 mg Tablet), 1 TAB PO BID, (Reported) Spironolactone (Aldactone), 25 MG PO DAILY@0830 Sucralfate (Carafate), 1 TABLET PO ACHS, (Reported) Scheduled PRN Trazodone HCl (Trazodone HCl), 1-2 TAB PO HS PRN for sleep, (Reported) Discontinued Medications Ferrous Sulfate (Iron), 1 TAB PO DAILY Discontinued Reason: patient no longer taking Past Medical History Past Medical History: Bowel Obstruction, Peptic Ulcer Disease Past Surgical History: orthopedic surgeries Other Past Surgical History: Peptic ulcer surgery, segmental resection of ileum Alcohol Use: Occasionally Drug Use: none Occupation: employed Review of Systems ROS Constitutional: Denies chills, fatigue, fever, weight gain or weight loss. HEENT: Denies hearing loss, sinus pressure or visual changes. Respiratory: Denies cough, shortness of breath or wheezing. Cardiovascular: Denies chest pain, pain while walking (claudication), edema or palpitations. Gastrointestinal: Coffee-ground emesis and melena, abdominal pain Genitourinary: Denies painful urination (dysuria), excessive amount of urine (polyuria) or urinary frequency. Metabolic/Endocrine: Denies cold intolerance, heat intolerance, excessive thirst (polydipsia) or excessive hunger (polyphagia). Neurological: Denies dizziness, extremity numbness, extremity weakness, headaches, seizures or tremors. Psychiatric: Denies anxiety or depression. Integumentary: Denies breast discharge, breast lump, hives, mole change(s), stephanie h or skin lesion. Musculoskeletal: Denies back pain, joint pain, joint swelling or neck pain. Hematologic: Denies easily bleeding, easily bruises, lymphedema or issues with blood clots. Immunologic: Denies food allergies or seasonal allergies. Physical Exam Physical Exam Vital Signs: Temperature: 94.6, Source: Rectal, Heart Rate: 113, Respiratory Rate: 16, BP: 122/99, Pulse Oximetry: 93, Weight: 54.550 Oxygen Flow Rate: 0 Physical Exam Physical Exam Vitals and nursing note reviewed. Constitutional: General: Patient is awake, alert, oriented x 4 in no acute distress and well appearing. Speech is clear and lucid. Appearance: Normal appearance. Patient is not ill-appearing, toxic-appearing or diaphoretic. HENT: Head: Normocephalic and atraumatic. Mouth/Throat: Mouth: Mucous membranes are moist. Pharynx: Oropharynx is clear. Eyes: General: No scleral icterus. Extraocular Movements: Extraocular movements intact. Pupils: Pupils are equal, round, and reactive to light. Cardiovascular: Rate and Rhythm: Normal rate and regular rhythm. Heart sounds: No murmur heard. Pulmonary: Effort: No respiratory distress. Breath sounds: No wheezing, rhonchi or rales. Abdominal: General: There is no distension. Palpations: There is no fluid wave, hepatomegaly or mass. Tenderness: Diffuse tenderness without rebound Musculoskeletal: General: No swelling or deformity. Skin: Coloration: Skin is not jaundiced. Findings: No erythema or rash. Neurological: Mental Status: Patient is alert. Progress Results/Orders Results/Orders Orders - JAYLEN HALE MD Chest,Single View (06/11/24 11:11) Monitor (06/11/24 11:11) Saline Lock (06/11/24 11:11) Oxygen (06/11/24 11:11) Straight Cath For Urine Sample (06/11/24 11:52) * (A) Vega- Protocol * Q12H@07,19 (06/11/24 12:35) Cta Abdomen Pelvis (06/11/24 11:56) Cult Urine + [address] (06/11/24 13:39) Piperacillin/Tazo 3.375gm/50ml (Zosyn 3. (06/11/24 14:21) Page Hospitalist (06/11/24 14:26) Page Hospitalist (06/11/24 14:44) ABG (06/11/24 16:13) Norepinephrine 8mg/ 250ml Ns (Norepineph (06/11/24 16:35) Completed Orders - JAYLEN HALE MD Chest,Single View (06/11/24 11:11) Cbc/Diff (06/11/24 11:11) PBNP (06/11/24 11:11) Electrocardiogram (06/11/24 11:11) CMP (06/11/24 11:11) Hs Troponin I W Calculations (06/11/24 11:11) Hs Troponin I W Calculations (06/11/24 13:11) Hs Troponin I W Calculations (06/11/24 14:11) Man Diff (06/11/24 11:15) Drug Screen, Urine (06/11/24 11:58) Type And Screen (06/11/24 11:58) Hydromorphone 0.5 Mg/0.5 Ml/Pf (Dilaudid (06/11/24 12:00) Ondansetron Inj. (Zofran 4mg/2ml Vial) (06/11/24 12:00) Pantoprazole 40mg Iv (Protonix 40mg Iv) (06/11/24 12:05) Ethanol (06/11/24 11:15) Lipase (06/11/24 11:15) Ringers Solution, Lacted (Lactated Ringe (06/11/24 12:25) Iohexol 350mg/Ml 100ml (Omnipaque 350mg/ (06/11/24 12:29) Cta Abdomen Pelvis (06/11/24 11:56) Ua W/Microscopic, Cult If Ind (06/11/24 13:00) LA (06/11/24 14:23) Lactic,2hr (06/11/24 16:03) Ringers Solution, Lacted (Lactated Ringe (06/11/24 16:10) Medications Received in ER Medications (Trade) Dose Ordered Sig/Sae Route PRN Reason Start Time Stop Time Status Last Admin Dose Admin (Dilaudid inj.) 0.5 mg ONCE ONCE IV 06/11/24 12:00 06/11/24 12:01 DC 06/11/24 12:21 0.5 MG (Zofran 4mg/2ml vial) 4 mg ONCE ONCE IV 06/11/24 12:00 06/11/24 12:01 DC 06/11/24 12:20 4 MG (Protonix 40mg IV) 80 mg ONCE ONCE IV 06/11/24 12:05 06/11/24 12:06 DC 06/11/24 12:20 80 MG Lactated Ringer's 1,000 ml @ 1,000 mls/hr ONCE ONCE IV 06/11/24 12:25 06/11/24 13:24 DC 06/11/24 12:31 1,000 MLS/HR Piperacillin/ Tazobactam/ Dextrose 50 ml @ 12.5 mls/hr ONCE STAT IV 06/11/24 14:21 06/11/24 18:20 06/11/24 15:20 12.5 MLS/HR Lactated Ringer's 1,000 ml @ 1,000 mls/hr ONCE ONCE IV 06/11/24 16:10 06/11/24 17:09 DC 06/11/24 16:10 1,000 MLS/HR Vital Signs 06/11/24 06/11/24 06/11/24 06/11/24 11:17 11:42 12:21 12:37 Temp 94.6 Pulse 113 88 Resp 21 16 16 16 B/P (MAP) 122/99 122/88 (99) Pulse Ox 93 93 O2 Flow Rate 0 0 06/11/24 06/11/24 06/11/24 06/11/24 13:02 13:24 15:56 16:08 Temp 92.8 95.7 99.0 Pulse 88 96 95 Resp 16 27 19 B/P (MAP) 120/85 (97) 90/68 (75) 92/60 (71) Pulse Ox 93 O2 Flow Rate 0 06/11/24 06/11/24 06/11/24 16:10 16:41 17:10 Pulse 91 92 Resp 16 14 19 B/P (MAP) 99/67 (78) 110/79 (89) Pulse Ox 93 O2 Flow Rate 0 Laboratory Tests Test 06/11/24 11:15 06/11/24 13:00 06/11/24 13:23 06/11/24 14:20 White Blood Count 20.8 H Red Blood Count 4.43 L Hemoglobin 13.2 L Hematocrit 40.9 L Mean Corpuscular Volume 92.3 Mean Corpuscular Hemoglobin 29.9 Mean Corpuscular Hemoglobin Concent 32.4 L Red Cell Distribution Width 19.4 H Platelet Count 243 Mean Platelet Volume 8.1 Neutrophils (%) (Auto) 81.0 H Lymphocytes (%) (Auto) 11.2 L Monocytes (%) (Auto) 7.4 Eosinophils (%) (Auto) 0.1 Basophils (%) (Auto) 0.3 Neutrophils # (Auto) 16.9 H Lymphocytes # (Auto) 2.3 Monocytes # (Auto) 1.5 H Eosinophils # (Auto) 0.0 Basophils # (Auto) 0.1 CBC Comment Differential Total Cells Counted 100 Neutrophils % (Manual) 67.0 Band Neutrophils % 11.0 H Lymphocytes % (Manual) 8.0 L Monocytes % (Manual) 12.0 Metamyelocytes % 1.0 H Reactive Lymphocytes 1.0 H Platelet Estimate Normal Red Blood Cell Morphology Perf Basophilic Stippling Anisocytosis 2+ Elliptocytes Few Sodium Level 131 L Potassium Level 4.2 Chloride Level 83 L Carbon Dioxide Level 20.5 L Anion Gap 28 H Blood Urea Nitrogen 108 H Creatinine 4.02 H Estimated GFR/1.73 m2 14 BUN/Creatinine Ratio 26.9 H Glucose Level 140 H Lactic Acid Level 17.6 *H Calcium Level 8.6 Total Bilirubin 0.4 Aspartate Amino Transf (AST/SGOT) 30 Alanine Aminotransferase (ALT/SGPT) 24 Alkaline Phosphatase 73 Troponin I High Sensitivity 183 *H 122 *H 140 *H Pro-B-Type Natriuretic Peptide 4844 H Total Protein 6.3 L Albumin 2.9 L Globulin 3.4 Albumin/Globulin Ratio 0.9 L Lipase 20 Chemistry Comments Ethyl Alcohol Level < 10 Urine Specimen Description Non-specified Urine Color Yellow Urine Clarity Slightly cloudy Urine pH 6.0 Urine Specific Blanchard >=1.030 Urine Protein 100 H Urine Glucose (UA) 250 H Urine Ketones Negative Urine Occult Blood Moderate H Urine Nitrite Negative Urine Bilirubin Negative Urine Urobilinogen 0.2 Urine Leukocyte Esterase Negative Urine RBC None seen Urine WBC 10-20 H Urine Squamous Epithelial Cells Few Urine Renal Cells Moderate Urine Bacteria 2+ Urine Hyaline Casts 0-3 Urine Coarse Granular Casts 0-3 Urine Mucus Few Urine Culture Indicated Indicated Volume Urine Centrifuged 10 ml Urine Comment Urine Opiates Screen Negative Urine Methadone Screen Negative Urine Fentanyl Screen Negative Urine Barbiturates Screen Negative Urine Phencyclidine Screen Negative Urine Amphetamines Screen Positive Urine Benzodiazepines Screen Negative Urine Cocaine Screen Negative Urine Cannabinoids Screen Negative Drug Screen Comment Troponin I High Sens Percent Delta 33 14 Troponin I Hi Sens Absolute Change -61 18 Test 06/11/24 16:28 06/11/24 17:15 Lactic Acid Level 6.7 *H Blood Gas Specimen Type Arterial Blood Gas Puncture Site Rr O2 Saturation 84.3 *L Arterial Blood pH (Temp corrected) 7.483 H Arterial Blood pCO2 (Temp correct) 30.6 L Arterial Blood pO2 (Temp corrected) 53.9 *L Arterial Blood PO2/FiO2 Ratio 2.62 Arterial Blood HCO3 22.5 Arterial Blood Base Excess -0.4 Arterial Blood Oxyhemoglobin 83.8 L Arterial Blood Carboxyhemoglobin 0.3 L Arterial Blood Methemoglobin 0.3 Arterial Blood Deoxyhemoglobin 15.6 H Ant Test Positive Blood Gas Hemoglobin 11.0 L Blood Gas Temperature 36.7 Blood Gas Modality Room air FiO2 21.0 Blood Gas Critical Value Called To patty Vazquez md Microbiology Date/Time Source Procedure Growth Status 06/11/24 13:39 Urine Nonspecified Urine Culture - Preliminary Culture received. Resulted Medical Decision Making Findings I have ordered laboratory studies and CTA of the abdomen with GI bleed protocol. Patient's white count is 20.8. His creatinine is over four. The troponins are elevated, as well. I am hydrating him and starting him on Zosyn. 1435: I did speak with our hanging flags decorator on-call, Dr. Keita who kindly agreed to consult on this patient. I am going to get this patient admitted. Departure Disposition: ADMITTED INPATIENT Admitted to Inpatient Unit: to dictaphone operator Admission Level of Care: Critcal Care Impression: Primary Impression: GI bleeding Additional Impressions: SUSAN (acute kidney injury) Methamphetamine abuse Condition: Guarded Referrals: NO PRIMARY CARE PROVIDER (PCP) Signature Scribe Signature: . Attestation: . JAYLEN HALE MD Jun 11, 2024 11:58
[2024-06-11] MEDS ORDERED: pantoprazole 40mg IV 80 MG in normal saline 100ml IV soln 100 ML IV ONE (12:00)
[2024-06-11] MEDS: ondansetron/PF 4mg/2ml inj IV ONE (12:20)
[2024-06-11] MEDS: pantoprazole 40 MG vial IV ONE ×2 (12:20→19:45)
[2024-06-11] MEDS: HYDROmorphone inj. 0.5 MG/0.5 ML DISP.SYRIN IV ONE (12:21)
[2024-06-11] MEDS ORDERED: iohexol 350MG/ML 100ml bottle IV ONE (12:29)
[2024-06-11] MEDS: ringers solution, lacted 1,000 ML IV ONE ×3 (12:31→16:55)
[2024-06-11 12:33] LABS: LIPASE 20 U/L (16-77)
[2024-06-11 12:40] LABS: ETHANOL < 10 MG/DL (<10)
[2024-06-11 13:26] LABS: BILIRUBIN,URINE NEGATIVE (Neg); CLARITY,URINE SLIGHTLY CLOUDY (Clear); COLOR,URINE YELLOW (Yellow); GLUCOSE, URINE 250 mg/dl (Neg); KETONES,URINE NEGATIVE (Neg); LEUKOCYTE ESTERASE ,URINE NEGATIVE (Neg); NITRITES, URINE NEGATIVE (Neg); OCCULT BLOOD,URINE MODERATE (Neg); PROTEIN,URINE 100 mg/dl (Neg); UROBILINOGEN,URINE 0.2 E.U/dL (0.2-1.0)
[2024-06-11 13:32] LABS: UA COLLECTION TYPE NON-SPECIFIED
[2024-06-11 13:36] LABS: RBC,URINE NONE SEEN /HPF (0-2)
[2024-06-11 13:37] LABS: BACTERIA,URINE 2+ /HPF (Neg); RENAL CELLS, URINE MODERATE /HPF; SQUAMOUS EPITHELIAL CELL,UR FEW /LPF (FEW)
[2024-06-11 13:38] LABS: COARSE GRANULAR CAST 0-3 /LPF (NEGATIVE); MUCUS STRANDS FEW /LPF (Neg)
[2024-06-11 13:39] LABS: HYALINE CASTS 0-3 /LPF (NEGATIVE)
--- NOTE | 2024-06-11 13:51 | RADIOLOGY REPORT ---
Procedure: CT CTA ABDOMEN PELVIS HISTORY: GI bleed protocol Comparison Study: CT CT CHEST ABDOMEN PELVIS W/ IV CONTRAST on DOS: 04/16/24, CT CT ABDOMEN PELVIS on D OS: 04/06/24, CT CT ABDOMEN PELVIS on DOS: 07/11/23 Exam Date:06/11/2024 12:53 PM TECHNIQUE: CTA scanner volumetric data acquisition of abdomen and pelvis was obtained following intravenous admi nistration of intravenous contrast without any reported adverse effects. Axial images were reconstru cted and additional sagittal and coronal images were reformatted. arterial phase imaging were perfor med. Postprocessing was also performed on a Separate workstation. 3D MIP images were performed on a dedicated workstation and reviewed for reporting. Radiation Dose : CT Dose: CTDI volume is 8.35 mGy. Dose-length product is 1062.21 mGy*cm FINDINGS: Vasculature: No evidence of aortic aneurysm or dissection. Moderate atherosclerotic calcification of the aorta and bilateral iliacs. Moderate atherosclerotic calcification of the origin of the SMA with minimal ather osclerotic calcification of the origin of the celiac. Heavy atherosclerotic calcification of the sple nayely artery. Otherwise, the SMA and celiac artery and the branches unremarkable. Bilateral accessory renal arteries. Mild atherosclerotic calcification of the origin of the left los al arteries which are otherwise unremarkable. [id number] atherosclerotic calcification of the o rigin of the right renal arteries which are otherwise unremarkable. No evidence of active contrast extravasation. Moderate emphysematous changes of the lung bases. Small fat containing right-sided posterior diaphrag matic hernia. Eventration of the left hemidiaphragm. Heart size is within normal limits. Liver, spleen, gallbladder, pancreas and adrenal glands unremarkable. Bilateral renal cysts, largest on the right measuring up to 6.2 cm and largest on the left measuring up to 1.4 cm. No hydronephrosis or renal calculi bilaterally. Mild wall thickening of the minimally distended urinary bladder. Vega catheter is noted in place. Foci of air within the urinary bladder which is most likely iatrogenic. Prostate measures 3 x 4.3 by 2.9 cm with calcifications. Penile calc ifications are noted. Fluid within the distal esophagus. Mild wall thickening of the distal esophagus. Mild gastric wall t hickening. Mild wall thickening of proximal mid small bowel loops the small bowel loops are fluid-fi lled with mild distention of small bowel segment within the right hemiabdomen up to 3.1 cm. Appendix is not completely visualized with the visualized appendix unremarkable. No pericecal or periappendice al inflammatory reaction is noted to suggest acute appendicitis. Wall thickening of the mid to distal transverse colon, descending colon, sigmoid and rectum with mild adjacent fat stranding most promine nt adjacent to the sigmoid. Colonic diverticulosis. No evidence of intraperitoneal free air or free fluid. No significant lymphadenopathy. The soft tissues are unremarkable. There is acute/ subacute fracture of S4. Multilevel moderate to se marly degenerative changes of the lumbar spine. Sclerotic focus of the right proximal humerus which ma y represent a bone island with a blastic lesion not excluded. IMPRESSION: No evidence of aortic aneurysm or dissection. No evidence Of active contrast extravasation. Mild wall thickening of the fluid-filled distal esophagus and stomach. Correlate for otitis and jose ritis respectively. Fluid-filled small bowel loops with mild wall thickening of the proximal and mid small bowel loops an d mild distention of the distal small bowel loops 3.1 cm. Correlate for enteritis with associated il eus. Bowel obstruction can not be completely excluded. Mild colitis involving the transverse colon, descending colon, sigmoid and rectum with possible super imposed sigmoid diverticulitis. Wall thickening of the urinary bladder which may be from inadequate distension. Correlation with uri nalysis is recommended to exclude cystitis. Acute/ subacute fracture of superior vertebral body of S4. Correlate with history of trauma. Additional findings as above.
[2024-06-11 14:02] LABS: URINE AMPHETAMINE SCREEN POSITIVE (Neg); URINE BARBITUATE SCREEN NEGATIVE (Neg); URINE BENZODIAZEPINES SCREEN NEGATIVE (Neg); URINE CANNABINOID SCREEN NEGATIVE (Neg); URINE COCAINE SCREEN NEGATIVE (Neg); URINE METHADONE SCREEN NEGATIVE (Neg); URINE OPIATE SCREEN NEGATIVE (Neg); URINE PHENCYCLIDINE SCREEN NEGATIVE (Neg)
[2024-06-11] MEDS ORDERED: EMPA10TA PO (14:20)
[2024-06-11] MEDS: piperacillin/tazo 3.375gm/50ml 50 ML IV STA (15:20)
[2024-06-11 17:21] LABS: ABG BASE EXCESS -0.4 mmol/L (-2.0-3.0); ABG HCO3 22.5 mmol/L (21.0-28.0); ABG OXYGEN SATURATION 84.3 % (94.0-98.0); ABG PCO2 (T) 30.6 mmHg (35.0-48.0); ABG PH (T) 7.483 (7.350-7.450); ABG PO2 (T) 53.9 mmHg (83.0-108.0); ALLEN'S TEST POSITIVE; FCOHb 0.3 % (0.5-1.5); FHHb 15.6 % (0.0-5.0); FMetHb 0.3 % (0.0-1.5); FO2Hb 83.8 % (94.0-98.0); MODE ROOM AIR; PATIENT TEMPERATURE 36.7
[2024-06-11] MEDS ORDERED: pantoprazole 40MG/NS 100ML BAG 100 ML IV STA (17:34)
[2024-06-11] MEDS ORDERED: magnesium Cl slow-release 64mg tablet PO PRN (17:35)
[2024-06-11] MEDS ORDERED: magnesium sulf-water 4G/100mL 100 ML IV PRN (17:35)
[2024-06-11] MEDS ORDERED: mag hydrox/Alum hydrox/simeth 30ml oral suspension PO PRN (17:35)
[2024-06-11] MEDS ORDERED: potassium Cl 20 mEq SR tablet PO PRN ×2 (17:35)
[2024-06-11] MEDS ORDERED: ondansetron/PF 4mg/2ml inj IV PRN (17:35)
[2024-06-11] MEDS ORDERED: magnesium hydroxide 30ml (MOM) UD suspension PO PRN (17:35)
[2024-06-11] MEDS ORDERED: magnesium sulf-water 2g/50mL 50 ML IV PRN (17:35)
[2024-06-11] MEDS ORDERED: FERR325T29 PO (17:36)
[2024-06-11] MEDS ORDERED: SACU1TAB PO (17:36)
[2024-06-11] MEDS ORDERED: METO25TA6 PO (17:36)
[2024-06-11] MEDS: ringers solution, lactated 1000ml IV soln IV ONE ×2 (18:07)
--- NOTE | 2024-06-11 18:10 | HISTORY AND PHYSICAL ---
History of Present Illness History of present illness 83-year-old male with a past medical history significant for gastrointestinal bleeding that revealed severe reflux esophagitis on upper GI endoscopy on the 15 June 2022 with the doctor Bossman who presented today with a chief complaint of coffee-ground emesis and melenic stools in the past one and half days associated with some abdominal pain. He also complained of lightheadedness. The patient was evaluated in the emergency department and was awake alert and could answer questions. He however was notable for hypotension and hypothermia on his vital signs. Melenic stools were confirmed in the emergency room. One of the most remarkable findings was that his creatinine was 4.02. Most recent creatinine was on the 16 April 2024 when it was around 1.16. He normally runs creatinine levels in the 0.7-0.9 levels. He BUN of in the lactate switches come to six with fluid resuscitation. He was also notable for leukocytosis of two which could have been due to bleed however he has leukocytosis reversal bandemia of 11.0. The patient is therefore diagnosed with septic shock with an infection source that is currently elusive. He was given a dose of Zosyn in the emergency department. I came to see the patient in the emergency department. He was in Trendelenburg position with systolic blood pressure around 94 and diastolic above 68. Mean arterial pressures were consistently above 70. He had received 3 L of lactated Ringer's. I ordered another 2 L of lactated Ringer's and then to continue lactated Ringer's at 250 mL/hour until tomorrow. Expected to stay > 48 hours Yes Reason for Visit: Pulmonary critical care assessment for ICU admission Chief complaint Lightheadedness, hematemesis and melenic stool. Source: Patient, Family (), Medical Records, Other (Bedside nurse) Past Medical History Past medical history Upper gastrointestinal bleeding, amphetamine induced cardiomyopathy, recreational amphetamine use,insomnia, Past Surgical History Surgical history Repair of perforated peptic ulcer 10 years ago. Segmental resection of ileum because of small-bowel obstruction due to adhesion and volvulus in 2009 Right inguinal hernia repair on 2011. Bilateral shoulder orthopedic surgery. EGD performed in June, showed severe erosive reflux esophagitis. Medications Home Meds Active Scripts Lidocaine HCl (Lidocaine HCl Viscous) 2 % Solution, 5 ML PO Q8H for mouth sore pain for 6 Days, #100 ML 0 Refills Prov:SHAILESH GIVENS MD 04/16/24 Ondansetron 8mg ODT (Ondansetron Odt) 8 Mg Tab.rapdis, 1 TAB PO Q6H for nausea/vomiting for 3 Days, #12 TAB 0 Refills Prov:SHAILESH GIVENS MD 04/16/24 Empagliflozin (Jardiance) 10 Mg Tablet, 10 MG PO DAILY for 30 Days, #30 TAB Prov:BERONICA MORTON, JACEY 04/15/24 Pantoprazole Sodium (Pantoprazole Sodium) 40 Mg Tablet.dr, 40 MG PO BID for 7 Days, #14 TAB.SR Prov:BERONICA MORTON, JACEY 04/15/24 Spironolactone (Aldactone) 25 Mg Tablet, 25 MG PO DAILY@0830 for 30 Days, #30 TAB Prov:BERONICA MORTON, JACEY 04/15/24 Lisinopril (Lisinopril) 5 Mg Tablet, 5 MG PO DAILY for 30 Days, #30 TAB Prov:BERONICA MORTON RES 04/15/24 Metoprolol Succinate (Metoprolol Succinate) 25 Mg Tab.sr.24h, 25 MG PO DAILY for 30 Days, #30 TAB.SR Prov:BERONICA MORTON RES 04/15/24 Reported Medications Sacubitril/Valsartan (Entresto 24 mg-26 mg Tablet) 24 Mg-26 Mg Tablet, 1 TAB PO BID 06/11/24 Metoprolol Tartrate (Metoprolol Tartrate) 25 Mg Tablet, 1 TAB PO DAILY 06/11/24 Empagliflozin (Jardiance) 10 Mg Tablet, 1 TAB PO DAILY, #30 TAB 0 Refills 06/11/24 Ferrous Sulfate (Ferrous Sulfate) 325 Mg (65 Mg Iron) Tablet, 1 TAB PO DAILY 06/11/24 Empagliflozin (Jardiance) 10 Mg Tablet, 1 TAB PO DAILY, #30 TAB 0 Refills 06/11/24 Cyclobenzaprine HCl (Flexeril) 10 Mg Tablet, 1 TABLET PO QHS 08/31/23 Sucralfate (Carafate) 1 Gram Tablet, 1 TABLET PO ACHS 08/31/23 Metoclopramide* (Metoclopramide*) 5 Mg Tablet, 1 TAB PO QID, 0 Refills 07/11/23 Trazodone HCl (Trazodone HCl) 50 Mg Tablet, 1-2 TAB PO HS PRN for sleep, 0 Refills 06/15/22 Pantoprazole Sodium (Pantoprazole Sodium) 40 Mg Tablet.dr, 1 TAB PO DAILY, 0 Refills 06/15/22 Discontinued Scripts Ferrous Sulfate (Iron) 325 Mg (65 Mg Iron) Tablet, 1 TAB PO DAILY for 30 Days, #30 TAB 0 Refills Prov:BERONICA MORTON, RES 04/15/24 Current medications Current Medications Pantoprazole Sodium 80 mg/ Sodium Chloride 100 ml @ 400 mls/hr ONCE ONCE IV ; Start 06/11/24 at 12:00; Stop 06/11/24 at 12:14; Status UNV Hydromorphone HCl (Dilaudid inj.) 0.5 mg ONCE ONCE IV Last administered on 06/11/24at 12:21; Start 06/11/24 at 12:00; Stop 06/11/24 at 12:01; Status DC Ondansetron HCl (Zofran 4mg/2ml vial) 4 mg ONCE ONCE IV Last administered on 06/11/24at 12:20; Start 06/11/24 at 12:00; Stop 06/11/24 at 12:01; Status DC Pantoprazole Sodium (Protonix 40mg IV) 80 mg ONCE ONCE IV Last administered on 06/11/24at 12:20; Start 06/11/24 at 12:05; Stop 06/11/24 at 12:06; Status DC Lactated Ringer's 1,000 ml @ 1,000 mls/hr ONCE ONCE IV Last administered on 06/11/24at 12:31; Start 06/11/24 at 12:25; Stop 06/11/24 at 13:24; Status DC Iohexol (Omnipaque 350mg/ ml polymer 100ml) 100 ml STK-MED ONCE IV ; Start 06/11/24 at 12:29; Stop 06/11/24 at 12:29; Status DC Piperacillin/ Tazobactam/ Dextrose 50 ml @ 12.5 mls/hr ONCE STAT IV Last administered on 06/11/24at 15:20; Start 06/11/24 at 14:21; Stop 06/11/24 at 18:20 Lactated Ringer's 1,000 ml @ 1,000 mls/hr ONCE ONCE IV Last administered on 06/11/24at 16:10; Start 06/11/24 at 16:10; Stop 06/11/24 at 17:09; Status DC Norepinephrine Bitartrate 250 ml @ 10.228 mls/ hr [id number] PRN IV to maintain mean MAP 60; Start 06/11/24 at 16:35 Lactated Ringer's (lactated ringers solution) 1,000 ml ONCE ONCE IV ; Start 06/11/24 at 16:55; Stop 06/11/24 at 16:56; Status DC Lactated Ringer's (lactated ringers solution) 1,000 ml ONCE ONCE IV ; Start 06/11/24 at 16:55; Stop 06/11/24 at 17:22; Status DC Lactated Ringer's 1,000 ml @ 250 mls/hr Q4H ONCE IV ; Start 06/11/24 at 16:55; Stop 06/11/24 at 20:54 Review of Systems Review of Systems Review of Systems A 14 review of systems was obtained and is as in history of present illness and past medical history. Allergies: Coded Allergies: No Known Allergies (Unverified , 06/11/24) Exam Vital signs Vital Signs Date Time Temp Pulse Resp B/P (MAP) Pulse Ox O2 Delivery O2 Flow Rate FiO2 06/11/24 17:54 94 16 127/81 (96) 06/11/24 17:10 92 19 110/79 (89) 06/11/24 16:41 91 14 99/67 (78) 06/11/24 16:10 16 06/11/24 16:08 95 19 92/60 (71) 06/11/24 15:56 99.0 96 27 90/68 (75) 06/11/24 13:24 95.7 88 16 120/85 (97) 06/11/24 13:02 92.8 06/11/24 12:37 88 16 122/88 (99) 93 0 06/11/24 12:21 16 06/11/24 11:42 16 06/11/24 11:17 94.6 113 21 122/99 93 0 Physical exam HEENT examination: Anicteric N/C/AT, PERRLA , sunken temples Neck: Supple no jugular venous distention no lymphadenopathy. Chest: Symmetric expansion bilaterally. Pulmonary: Clear to auscultation bilaterally with no wheezing rales rhonchi. Abdomen: Nondistended, +bowel sounds, Soft nontender no organomegaly. Extremities: No cyanosis clubbing and edema Neurological examination: Grossly nonfocal. Laboratory Results Laboratory Tests 06/11/24 11:15 Chemistry Test 06/11/24 11:15 Albumin 2.9 G/DL (3.4-5.0) L Albumin/Globulin Ratio 0.9 (1.1-1.5) L Calcium Level 8.6 MG/DL (8.5-10.1) Globulin 3.4 G/DL (2.7-4.3) Total Protein 6.3 G/DL (6.4-8.2) L Lipid panel Test 06/11/24 11:15 Lipase 20 U/L (16-77) LFT Test 06/11/24 11:15 Alanine Aminotransferase (ALT/SGPT) 24 U/L (12-78) Alkaline Phosphatase 73 IU/L (46-116) Aspartate Amino Transf (AST/SGOT) 30 U/L (10-37) Total Bilirubin 0.4 MG/DL (0.1-1.0) Urinalysis Test 06/11/24 13:00 Urine Specimen Description Non-specified Urine Color Yellow (Yellow) Urine Clarity Slightly cloudy (Clear) Urine pH 6.0 (4.8-8.0) Urine Specific Dexter >=1.030 (1.001-1.035) Urine Protein 100 mg/dl (Neg) H Urine Glucose (UA) 250 mg/dl (Neg) H Urine Ketones Negative mg/dl (Neg) Urine Occult Blood Moderate (Neg) H Urine Nitrite Negative (Neg) Urine Bilirubin Negative (Neg) Urine Urobilinogen 0.2 E.U/dL (0.2-1.0) Urine Leukocyte Esterase Negative (Neg) Urine RBC None seen /HPF (0-2) Urine WBC 10-20 /HPF (0-4) H Urine Squamous Epithelial Cells Few /LPF (FEW) Urine Renal Cells Moderate /HPF Urine Bacteria 2+ /HPF (Neg) Urine Hyaline Casts 0-3 /LPF (NEGATIVE) Urine Coarse Granular Casts 0-3 /LPF (NEGATIVE) Urine Mucus Few /LPF (Neg) Urine Culture Indicated Indicated Volume Urine Centrifuged 10 ml Urine Comment Microbiology Microbiology 06/11/24 Urine Culture - Preliminary, Resulted Culture received. Assessment/Plan Plan Acute upper gastrointestinal bleeding presenting with lightheadedness, melenic stool, hematemesis and hypotension: Patient already received 80 mg of Protonix intravenously. Patient has a background history of severe reflux esophagitis in June of 2022.JOSE Arreola has been notified by the ED physician and is aware of the patient's admission. Follow H&H q.6 hours. Acute kidney injury: Most likely due to hypotension caused by upper GI bleeding. Patient has good urine output and seems to respond to fluid resuscitation efforts. Lactic acidosis: Most likely due to hypoperfusion and improving with fluid resuscitation. Continue lactated Ringer's at 250 mL/hour. COPD: Suggested by hypoxemia i.e. ABG on room air reveals a PO2 of 53 with a background history of smoking and a chest x-ray highly suggestive of COPD. Patient now on supplemental oxygen. Initially on 6 L/min and I recommended to use 3-4 L of nasal cannula oxygen per minute aiming at at least a pulse oximeter reading of 88%. Septic shock: Suggested by hypothermia, hypotension and severe lactic acidosis. Patient already received a dose of Zosyn. We will empirically treat with vancomycin and Zosyn and obtain blood cultures. Amphetamine use: An ongoing problem and positive on today's toxicology. Code status: Full code Sedation/analgesia: Currently not indicated Nutrition: Keep NPO IVs: Patient has two P IVs Overall prognosis: Guarded Critical care time in excess of 35 minutes. VTE VTE Risk Score VTE Risk Score Reference Ranges: Score 0-1 = Low Risk (Aggressive mobilization; early ambulation; no VTE prophylaxis required) Score 2: Moderate Risk (Intermittent/Pneumatic Compression Device OR Lovenox/Heparin/Coumadin) Score 3-4: High Risk (Intermittent/Pneumatic Compression Device AND Lovenox/Heparin/Coumadin) Score > or = 5: Highest Risk (Intermittent/Pneumatic Compression Device AND Lovenox/Heparin/Coumadin) JULIA TYLER MD Jun 11, 2024 18:10
[2024-06-11] MEDS: vancomycin/NS 1 GM ADD-VANTAGE 250 ML X 1 DOSE IV ONE (18:31)
[2024-06-11] MEDS: K and/or MAG REPLACEMENT MC SCH (19:00)
--- NOTE | 2024-06-11 19:05 | CONSULTATION REPORT - RESIDENT ---
Consult Providers to CC Resident Creating Document: NATALY HANEY RES History of Present Illness Reason for Admit\Complaint: GI bleed History of Present Illness 83-year-old male with history of GI bleed, perforated peptic ulcer status post repair 10 years ago, s/p segmental resection of ileum, orthopedic surgery presented to the ED with chief complaints of coffee-ground emesis and melanotic stools for the past one and half days. He has associated abdominal pain and lightheadedness. He appears to be frail and weak and not a very good historian. He has been having melanotic stools in ED. he states he has been having abdominal pain since the past couple of months. He has associated vomiting on and off since the past three months. Denies significant chest pains, diaphoresis, fevers/chills, nasal congestion, expectoration, palpitations, or weight loss/weight gain. Usage of NSAIDs like ibuprofen Motrin aleve. Does not use any blood thinners. He lives with his and is independent in daily activities. He has history of similar episodes in the past, EGD on 07/02 showed reflux esophagitis. Was admitted here in April 2024 with similar complaints and had the EGD done by Dr. Matute showing reflux esophagitis. During this admission he has an elevated white count 20, hemoglobin 13 hematocrit 40. Elevated lactic acid of 17. Troponins are elevated, denied any chest pain shortness of breath. He also has a history of cardiomyopathy and is on heart failure medications. He has a BNP of 4 844. UTox positive for meth. He has acute kidney injury with elevated creatinine 4.02. Baseline creatinine 0.7-0.9. He is in septic shock with a soft blood pressures might likely require pressure support. He is currently being admitted to the ICU for further management and care, hospitalist team will continue to follow. Allergies: Coded Allergies: No Known Allergies (Unverified , 06/11/24) Home Medications Home Medications Active Lidocaine HCl Viscous (Lidocaine HCl) 2 % Solution 5 Ml PO Q8H 6 Days Ondansetron Odt (Ondansetron HCl) 8 Mg Tab.rapdis 1 Tab PO Q6H 3 Days Jardiance (Empagliflozin) 10 Mg Tablet 10 Mg PO DAILY 30 Days Pantoprazole Sodium 40 Mg Tablet.dr 40 Mg PO BID 7 Days Aldactone (Spironolactone) 25 Mg Tablet 25 Mg PO DAILY@0830 30 Days Lisinopril 5 Mg Tablet 5 Mg PO DAILY 30 Days Metoprolol Succinate 25 Mg Tab.sr.24h 25 Mg PO DAILY 30 Days Reported Entresto 24 mg-26 mg Tablet (Sacubitril/Valsartan) 24 Mg-26 Mg Tablet 1 Tab PO BID Metoprolol Tartrate 25 Mg Tablet 1 Tab PO DAILY Jardiance (Empagliflozin) 10 Mg Tablet 1 Tab PO DAILY Ferrous Sulfate 325 Mg (65 Mg Iron) Tablet 1 Tab PO DAILY Jardiance (Empagliflozin) 10 Mg Tablet 1 Tab PO DAILY Flexeril (Cyclobenzaprine HCl) 10 Mg Tablet 1 Tablet PO QHS Carafate (Sucralfate) 1 Gram Tablet 1 Tablet PO ACHS Metoclopramide* (Metoclopramide HCl) 5 Mg Tablet 1 Tab PO QID Trazodone HCl 50 Mg Tablet 1-2 Tab PO HS PRN Pantoprazole Sodium 40 Mg Tablet.dr 1 Tab PO DAILY Past Medical History Past Medical History Upper GI bleed, reflux esophagitis Methamphetamine induced cardiomyopathy Past Surgical History Surgical History Comment Repair of perforated peptic ulcer 10 years ago. Segmental resection of ileum because of small-bowel obstruction due to adhesion and volvulus in 2009 Right inguinal hernia repair on 2011. Bilateral shoulder orthopedic surgery. EGD performed in June, showed severe erosive reflux esophagitis. Past Social History Social History Comment He quit smoking three months ago, previously smoked one pack a day for 65 years He drinks alcohol socially, denies being a heavy drinker. He smokes marijuana occasionally. He lives with his and son. ROS ROS Reviewed in full. All negative except for pertinent positive HPI. Exam Vitals: Vital Signs Date Time Temp Pulse Resp B/P (MAP) Pulse Ox O2 Delivery O2 Flow Rate FiO2 06/11/24 17:54 94 16 127/81 (96) 06/11/24 16:41 06/11/24 15:56 99.0 General: General: Elderly frail male, Awake and Alert, mild acute distress. HEENT: Conjunctiva pale, Sclera clear, Mucus Membranes moist. Neck: Supple without masses and tenderness. Resp: Unlabored. Equal breath sounds bilaterally. Heart: Regular rhythm, normal S1 and S2, no rub, murmur or gallop. Abdomen: Soft and non tender no organomegaly. Normal bowel sounds x4 quadrant normoactive. No guarding or rigidity. Extremities: Normal ROM, no swelling, nontender. No cyanosis,clubbing or edema. KNOWLEDGE MANAGEMENT CONSULTANT: No gross motor or sensory abnormalities. Skin: Warm and Dry. Diagnostic Data Last Recorded Lab Results: 06/11/24 1115 06/11/24 1115 Additional Plan 83-year-old male with history of GI bleed, perforated peptic ulcer status post repair 10 years ago, s/p segmental resection of ileum, orthopedic surgery presented to the ED with chief complaints of coffee-ground emesis and melanotic stools for the past one and half days. GI bleed History of severe reflux esophagitis and upper GI bleed in the past Septic shock H&H on admission 13.2, 40.9 Elevated BUN and creatinine 108, 4.02 likely secondary to severe GI bleed Continues to have melanotic stools Received Protonix 80 IV x1 Continue IV Protonix Has a history of iron-deficiency anemia, per labs from May 05 low iron and ferritin Monitor H&H q.6 hours and transfuse for hemoglobin less than seven GI Dr Keita has been consulted, appreciate recommendations Leukocytosis with bandemia Septic shock source unknown Lactic acidosis On empiric vanc and Zosyn IV fluid bolus and fluid resuscitation Follow up with cultures Elevated troponins Type 2 GA likely secondary to demand ischemia Patient does not have any chest pain, no ischemic changes noted on EKG Acute kidney injury likely secondary to renal tubular stasis Creatinine 4.02, baseline creatinine 0.7-0.9 Kidney injury could be secondary to severe GI bleed Continue IV fluid resuscitation Monitor BMP 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 Overall systolic function is mildly reduced. LVEF is 45-50%. GDM T as tolerated when able Methamphetamine use Code Status: Full code DVT prophylaxis: None in view of active GI bleed Analgesia/sedation: None Line/tube: PIV GI prophylaxis: Protonix Prognosis: Guarded Disposition: Continue medical management. Patient currently being admitted to ICU management per site identification specialist, hospitalist team will continue to follow. Nataly Haney MD. IM Resident PGY-2 Date of Service: Jun 11, 2024 Billing Provider: TALI FARLEY MD Common Visit Codes: [id number] INP/OBS CARE (HIGH), [id number] INP/OBS CARE(HIGH) NATALY HANEY, RES Jun 11, 2024 19:05 TALI FARLEY MD Jun 12, 2024 19:56
[2024-06-11] MEDS: pantoprazole 40MG/NS 100ML BAG 100 ML IV SCH (19:30)
[2024-06-11 19:37] LABS: HEMATOCRIT 31.3 % (42.0-52.0); HEMOGLOBIN 10.5 g/dl (14.0-17.9); MEAN CORPUSCULAR HEMOGLOBIN 30.5 PG (27.0-31.0); MEAN CORPUSCULAR HGB CONC 33.7 g/dL (33.0-36.5); MEAN CORPUSCULAR VOLUME 90.3 FL (78-98); MEAN PLATELET VOLUME 8.1 FL (7.4-10.4); PLATELET COUNT 153 X10'3 (140-440); RED BLOOD COUNT 3.46 X10'6 (4.70-6.10); RED CELL DISTRIBUTION WIDTH 19.1 % (11.5-14.5); WHITE BLOOD COUNT 6.5 X10'3 (4.5-11.0)
[2024-06-11] MEDS: docusate sod 100mg capsule PO SCH (20:18)
[2024-06-11] MEDS ORDERED: pantoprazole 40MG/NS 100ML BAG 100 ML IV SCH (21:00)
[2024-06-11] MEDS: NORepinephrine 8mg/ 250ml NS 250 ML IV PRN (21:03)
[2024-06-12] VITALS (10 sets, daily range): BP systolic 94–118; BP diastolic 55–75; PULSE 108–120; RESP 16–25; O2SAT 88–96
[2024-06-12] MEDS: piperacillin/tazo 3.375gm/50ml 50 ML IV SCH (00:04)
[2024-06-12 00:44] LABS: HEMATOCRIT 32.6 % (42.0-52.0); HEMOGLOBIN 11.2 g/dl (14.0-17.9); MEAN CORPUSCULAR HEMOGLOBIN 30.6 PG (27.0-31.0); MEAN CORPUSCULAR HGB CONC 34.3 g/dL (33.0-36.5); MEAN CORPUSCULAR VOLUME 89.4 FL (78-98); MEAN PLATELET VOLUME 8.2 FL (7.4-10.4); PLATELET COUNT 159 X10'3 (140-440); RED BLOOD COUNT 3.64 X10'6 (4.70-6.10); RED CELL DISTRIBUTION WIDTH 19.6 % (11.5-14.5); WHITE BLOOD COUNT 7.7 X10'3 (4.5-11.0)
--- NOTE | 2024-06-12 07:00 | PROGRESS NOTE ---
Progress Progress Note: Called just now for patient with ongoing pressor requirement. Also with lactic acid up to 7 when last checked from 6 prior. Currently on NE at 0.15mc/kg/min HR 105-125 irregular BP 140/60 700cc of urine in borden although unclear over what time period Has had ongoing melena, no BRBPR Exam Exam Exam limited to remote assessment Somewhat agitated confused elderly man In no resp distress on RA Results/Orders Result Diagram: 06/12/24 0031 06/11/24 1115 Consults/PCP Consult Comments: Impression: GIB, likely upper SUSAN Shock state, likely mixed Lactic acidosis, possibly due to hypovolemia r/o bowel ischemia Possible new onset afib R/O severe sepsis possibly due to UTI vs colitis or other GI source Delirium Methamphetamine abuse Rec: F/u repeat labs stat including CBC, CMP, lactic acid. Obtain stat ECG r/o AFIB Titrate NE to off as tolerated. May be able to come off completely given SBP of 140 on low dose of NE. Coming off NE will hopefully lessen his HR. May blood/further IVF resus. Cont PPI infusion. GI to see. Obtain repeat abd imaging, surgical consult if lactic acid level not decreasing. Will need nephro consult, potential HD if renal function worsening. Cont vanco by level plus pip/tazo renally dosed for now. F/U simpson cultures. Plan reviewed with bedside team. Patient seen through remote audiovisual assessment through HIPAA compliant setup. All labs, flowsheets, and images reviewed Cumulative nonprocedural care time spent in directed patient care = 60 min STEPH DELGADO MD Jun 12, 2024 07:00
--- NOTE | 2024-06-12 07:17 | ELECTROCARDIOGRAPH REPORT ---
[facility] Test Date: 2024-06-12 Test Time: 07:15:30 Pat Name: CINDI HYMAN Department: [facility]-ED HOLD Patient ID: 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 Reading MD: Dr. Michael Palacio Measurements Intervals [place] Rate: 106 P: 0 MI: 0 QRS: -81 QRSD: 106 T: 93 QT: 398 QTc: 529 Interpretive Statements Atrial fibrillation Ventricular premature complex Left anterior fascicular block Anteroseptal infarct, age indeterminate Prolonged QT interval Electronically Signed On 06-12-2024 11:26:[address] Michael Palacio Please click the below link to view image of tracing.
[2024-06-12] MEDS: aspirin 81mg tab.chew PO ONE (07:30)
[2024-06-12] MEDS ORDERED: dextrose 50%-water 50ml dispensing syringe IV ONE (08:00)
[2024-06-12 08:09] LABS: BASOPHILS % (AUTO) 0.1 % (0-1); EOSINOPHILS % (AUTO) 0 % (0-6); HEMATOCRIT 34.9 % (42.0-52.0); HEMOGLOBIN 11.7 g/dl (14.0-17.9); LYMPHOCYTES # (AUTO) 0.7 X10'3 (1.1-4.8); LYMPHOCYTES % (AUTO) 5.6 % (21-51); MEAN CORPUSCULAR HEMOGLOBIN 30.5 PG (27.0-31.0); MEAN CORPUSCULAR HGB CONC 33.4 g/dL (33.0-36.5); MEAN CORPUSCULAR VOLUME 91.3 FL (78-98); MEAN PLATELET VOLUME 8.5 FL (7.4-10.4); MONOCYTES # (AUTO) 0.5 X10'3 (0-0.9); MONOCYTES % (AUTO) 4.2 % (2-12); NEUTROPHILS # (AUTO) 11.8 X10'3 (1.8-7.7); NEUTROPHILS % (AUTO) 90.1 % (42-75); PLATELET COUNT 145 X10'3 (140-440); RED BLOOD COUNT 3.83 X10'6 (4.70-6.10); RED CELL DISTRIBUTION WIDTH 19.7 % (11.5-14.5); WHITE BLOOD COUNT 13.1 X10'3 (4.5-11.0)
[2024-06-12] MEDS ORDERED: vancomycin/NS 1 GM ADD-VANTAGE 250 ML X 1 DOSE IV PRN (08:20)
[2024-06-12] MEDS: diltiazem 5mg/ml 5ml inj. IV ONE (08:24)
[2024-06-12] MEDS: aspirin 300mg supp.rect RC ONE (08:35)
[2024-06-12] MEDS: dextrose 50%-water 50ml dispensing syringe IV ONE ×4 (08:43→09:23)
[2024-06-12] MEDS: ringers solution, lacted 1,000 ML IV SCH (09:11)
[2024-06-12 09:16] LABS: ALANINE AMINOTRANSFERASE 37 U/L (12-78); ALBUMIN 2.3 G/DL (3.4-5.0); ALBUMIN/GLOBULIN RATIO 0.9 (1.1-1.5); ALKALINE PHOSPHATASE 52 IU/L (46-116); ANION GAP 13 (8-16); ASPARTATE AMINO TRANSFERASE 90 U/L (10-37); BILIRUBIN,TOTAL 0.4 MG/DL (0.1-1.0); BLOOD UREA NITROGEN 90 MG/DL (7-18); BUN/CREATININE RATIO 35.4 (10.0-20.0); CALCIUM 7.9 MG/DL (8.5-10.1); CHLORIDE 97 MMOL/L (99-107); CREATINE KINASE MB 53.5 ng/ml (0.3-3.6); CREATININE 2.54 MG/DL (0.60-1.10); MAGNESIUM 2.1 MG/DL (1.5-2.4); POTASSIUM 3.9 MMOL/L (3.5-5.1); SODIUM 136 MMOL/L (135-145); THYROID STIMULATING HORMONE 0.89 ulU/ml (0.34-4.50); TOTAL CARBON DIOXIDE 25.6 MMOL/L (24-32); VANCOMYCIN,RANDOM 11.4 ug/mL (20.0-30.0); eCRCL 18 ML/MIN; eGFR 24 ML/MIN
[2024-06-12 09:17] LABS: GLUCOSE 45 MG/DL (70-104)
[2024-06-12 09:18] LABS: MYOGLOBIN 1824 ng/ml (16-96)
[2024-06-12 09:38] LABS: CKMB RELATIVE INDEX 4.6 RATIO (0-2.5); CREATINE KINASE 1173 U/L (39-308)
[2024-06-12] MEDS: ringers solution, lacted 1,000 ML IV ONE ×2 (10:16→11:12)
--- NOTE | 2024-06-12 10:35 | RADIOLOGY REPORT ---
CHEST RADIOGRAPH Indication: Placement of central line Technique: Single frontal view of the chest was obtained Comparison: DI CHEST,SINGLE VIEW on DOS: 06/11/24, DI CHEST,SINGLE VIEW on DOS: 04/14/24, DI CHEST,SINGLE VIEW on DOS: 04/06/24, DI CHEST,SINGLE VIEW on DOS: 08/31/23, CHEST,SINGLE VIEW on DOS: 06/15/22 FINDINGS: Lines and Tubes: Right central venous catheter tip in svc. Lungs: No focal consolidation. Pleura: No effusion. No pneumothorax. Cardiomediastinal contours: Unremarkable Bones: No acute osseous abnormality. IMPRESSION: No acute cardiopulmonary disease.
[2024-06-12] MEDS: DEXTROSE 50% IV SCH (11:05)
[2024-06-12 11:55] LABS: HEMATOCRIT 27.5 % (42.0-52.0); HEMOGLOBIN 9.4 g/dl (14.0-17.9); MEAN CORPUSCULAR HEMOGLOBIN 30.8 PG (27.0-31.0); MEAN CORPUSCULAR HGB CONC 34.1 g/dL (33.0-36.5); MEAN CORPUSCULAR VOLUME 90.4 FL (78-98); MEAN PLATELET VOLUME 8.5 FL (7.4-10.4); PLATELET COUNT 126 X10'3 (140-440); RED BLOOD COUNT 3.04 X10'6 (4.70-6.10); RED CELL DISTRIBUTION WIDTH 19.5 % (11.5-14.5); WHITE BLOOD COUNT 10.1 X10'3 (4.5-11.0)
--- NOTE | 2024-06-12 12:23 | PROGRESS NOTE ---
Subjective Subjective Patient is seen today. Was in Trendelenburg position and restless. He was awake and alert. He was not showing any signs of distress. Was diagnosed with a hypoglycemia and is receiving intermittent bolusing with 50% dextrose. Daily Progress Note Exam Vitals Vital Signs Date Time Temp Pulse Resp B/P (MAP) Pulse Ox O2 Delivery O2 Flow Rate FiO2 06/12/24 11:15 99.1 107 18 109/58 (75) 94 06/12/24 10:47 4.0 06/12/24 09:30 36 06/12/24 00:58 Nasal Cannula* Result Diagram: 06/12/24 0758 06/12/24 0758 Exam HEENT examination: Anicteric N/C/AT, PERRLA , sunken temples Neck: Supple no jugular venous distention no lymphadenopathy. Chest: Symmetric expansion bilaterally. Pulmonary: Clear to auscultation bilaterally with no wheezing rales rhonchi. Abdomen: Nondistended, +bowel sounds, Soft nontender no organomegaly. Extremities: No cyanosis clubbing and edema Neurological examination: Grossly nonfocal. VTE VTE Risk Score VTE Risk Score Reference Ranges: Score 0-1 = Low Risk (Aggressive mobilization; early ambulation; no VTE prophylaxis required) Score 2: Moderate Risk (Intermittent/Pneumatic Compression Device OR Lovenox/Heparin/Coumadin) Score 3-4: High Risk (Intermittent/Pneumatic Compression Device AND Lovenox/Heparin/Coumadin) Score > or = 5: Highest Risk (Intermittent/Pneumatic Compression Device AND Lovenox/Heparin/Coumadin) Assessment/Plan Plan Acute upper gastrointestinal bleeding presenting with lightheadedness, melenic stool, hematemesis and hypotension: Previous history of GI bleeding secondary to severe erosive esophagitis. Follow H&H q.6 hours and continue Protonix. Acute kidney injury: Most likely due to hypotension caused by upper GI bleeding. Responding well to fluid resuscitation. Patient has good urine output and seems to respond to fluid resuscitation efforts. Lactic acidosis: Most likely due to hypoperfusion and improving with fluid resuscitation. Bolus with 2 L of lactated Ringer's and continue lactated Ringer's at 250 mL/hour. COPD: Suggested by hypoxemia i.e. ABG on room air reveals a PO2 of 53 with a background history of smoking and a chest x-ray highly suggestive of COPD. Patient now on supplemental oxygen. Initially on 6 L/min and I recommended to use 3-4 L of nasal cannula oxygen per minute aiming at at least a pulse oximeter reading of 88%. Septic shock: Suggested by hypothermia, hypotension and severe lactic acidosis. Patient already received a dose of Zosyn. We will empirically treat with vancomycin and Zosyn and obtain blood cultures. Amphetamine use: An ongoing problem and positive on today's toxicology. New onset hypoglycemia this morning: Infused 50% dextrose at 50 mL/hour and follow fingersticks Q 1 hour. Code status: Full code Sedation/analgesia: Currently not indicated Nutrition: Keep NPO IVs: Now has a central line and one PIV. Overall prognosis: Guarded Critical care time in excess of 35 minutes. JULIA TYLER MD Jun 12, 2024 12:23
--- NOTE | 2024-06-12 15:37 | CONSULTATION ---
DATE OF CONSULTATION: 06/12/2024 DICTATING PHYSICIAN: Chris Keita MD REASON FOR CONSULTATION: The patient is evaluated at Dr. Claude Glover's request for evaluation of coffee-ground emesis and melena. HISTORY: The patient presented to the Emergency Room yesterday with a 3-day history of vomiting coffee-ground like material and melena. He did undergo upper endoscopy by Dr. Crockett on 04/13/2024, which showed severe erosive reflux esophagitis. PAST MEDICAL HISTORY: Remarkable for peptic ulcer disease requiring repair 10 years ago, the exact surgery done is unknown. He also reportedly had a segmental resection of his ileum. 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 MEDICATIONS: Include vancomycin IV, Zosyn, pantoprazole, docusate sodium, Zofran as needed. PHYSICAL EXAMINATION: GENERAL: The patient is a chronically ill-appearing man, in no acute distress. VITAL SIGNS: He is afebrile. Pulse rate 96, respirations 20, blood pressure 107/70. He is 92% saturated on 6 liters nasal cannula. ABDOMEN: Soft and nontender. HEART: Pulse, regular rate and rhythm. LUNGS: Have diminished breath sounds. NEUROLOGIC: Alert and oriented. LABORATORY DATA: White count 10, hemoglobin 9.4, platelets 126. On admit, white count 20.8, hemoglobin 13.2, platelets 243. Comprehensive metabolic panel on presentation notable for a BUN of 108, creatinine 4.02. With hydration, creatinine is now dropped to 2.54. Sodium 136, potassium 3.9. Creatine kinase total 1173, MB fraction is 53.5, myoglobin 1824. Troponin highly sensitive is 97. Tox screen yesterday was positive for methamphetamines. A CT angiogram of the abdomen and pelvis done yesterday shows no evidence of active bleeding, no free air, possible wall thickening of the transverse, descending, sigmoid and rectum versus lack of distention. Chest x-ray shows no acute cardiopulmonary disease. IMPRESSION: Upper gastrointestinal bleed, likely related to esophagitis. PLAN: Given his recent upper endoscopy in April of this year showing severe erosive esophagitis, I am not recommending repeat endoscopy at this time. Moreover, there is some evidence that he has had myocardial injury based on his troponin elevation. I will sign off. Please call if there is evidence of active bleeding such as vomiting of red blood, passage of hematochezia or a persistently falling hemoglobin and hematocrit. Thank you for the referral. Chris Keita MD TID: [id number] RECEIPT: [id number] ALONSO/ARTURO/SARAH
--- NOTE | 2024-06-12 16:48 | PROGRESS NOTE- Residence ---
Progress Note - Resident Providers to CC Resident Creating Document: NATALY HANEY RES ~ Antibiotic Timeout Antibiotic Ordered?: Yes Subjective Patient seen and examined at bedside. Currently being fluid resuscitated. No new concerns or complaints. Objective Vital Signs Date Time Temp Pulse Resp B/P (MAP) Pulse Ox O2 Delivery O2 Flow Rate FiO2 06/12/24 16:06 98.8 111 18 118/75 (89) 89 Nasal Cannula 6.0 06/12/24 13:43 36 Result Diagram: 06/12/24 1137 06/12/24 1508 General: Elderly frail male, Awake and Alert, mild acute distress. HEENT: Conjunctiva pale, Sclera clear, Mucus Membranes moist. Neck: Supple without masses and tenderness. Resp: Unlabored. Equal breath sounds bilaterally. Heart: Regular rhythm, normal S1 and S2, no rub, murmur or gallop. Abdomen: Soft and non tender no organomegaly. Normal bowel sounds x4 quadrant normoactive. No guarding or rigidity. Extremities: Normal ROM, no swelling, nontender. No cyanosis,clubbing or edema. 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 Skin: Warm and Dry. Assessment Assessment 83-year-old male with history of GI bleed, perforated peptic ulcer status post repair 10 years ago, s/p segmental resection of ileum, orthopedic surgery presented to the ED with chief complaints of coffee-ground emesis and melanotic stools for the past one and half days. Plan Plan GI bleed History of severe reflux esophagitis and upper GI bleed in the past Septic shock Rhabdomyolysis secondary to above H&H on admission 13.2, 40.9 Elevated BUN and creatinine 108, 4.02 likely secondary to severe GI bleed Continues to have melanotic stools Received Protonix 80 IV x1 Continue IV Protonix Has a history of iron-deficiency anemia, per labs from May 05 low iron and ferritin Monitor H&H q.6 hours and transfuse for hemoglobin less than seven GI Dr Keita has been consulted, appreciate recommendations 06/12/2024: Continuing IV fluid resuscitation, Lactic acid downtrending No GI intervention at this time, we will continue to monitor H&H Leukocytosis with bandemia Septic shock source unknown Lactic acidosis On empiric vanc and Zosyn IV fluid bolus and fluid resuscitation Follow up with cultures 06/12/2024: Continue IV antibiotics Elevated troponins Type 2 PR likely secondary to demand ischemia Patient does not have any chest pain, no ischemic changes noted on EKG 06/12/2024 Troponins downtrending Acute kidney injury likely secondary to renal tubular stasis Creatinine 4.02, baseline creatinine 0.7-0.9 Kidney injury could be secondary to severe GI bleed Continue IV fluid resuscitation Monitor BMP 06/12/2024: Creatinine downtrending, continue IVF 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 Overall systolic function is mildly reduced. LVEF is 45-50%. GDM T as tolerated when able Methamphetamine use Code Status: Full code DVT prophylaxis: None in view of active GI bleed Analgesia/sedation: None Line/tube: PIV GI prophylaxis: Protonix Prognosis: Guarded Disposition: Continue medical management. Patient currently being admitted to ICU management per oracle e business developer, hospitalist team will continue to follow. Nataly Haney MD. IM Resident PGY-2 Date of Service: Jun 12, 2024 Billing Provider: TALI FARLEY MD Common Visit Codes: [id number] INP/OBS CARE(HIGH) NATALY HANEY, RES Jun 12, 2024 16:48 TALI FARLEY MD Jun 12, 2024 20:00
[2024-06-12] MEDS ORDERED: METO-539 PO (17:40)
[2024-06-12 19:33] LABS: HEMATOCRIT 26.5 % (42.0-52.0); HEMOGLOBIN 8.9 g/dl (14.0-17.9); MEAN CORPUSCULAR HEMOGLOBIN 30.5 PG (27.0-31.0); MEAN CORPUSCULAR HGB CONC 33.6 g/dL (33.0-36.5); MEAN CORPUSCULAR VOLUME 90.9 FL (78-98); MEAN PLATELET VOLUME 8.5 FL (7.4-10.4); PLATELET COUNT 102 X10'3 (140-440); RED BLOOD COUNT 2.92 X10'6 (4.70-6.10); RED CELL DISTRIBUTION WIDTH 19.4 % (11.5-14.5); WHITE BLOOD COUNT 6.1 X10'3 (4.5-11.0)
[2024-06-13] VITALS (14 sets, daily range): BP systolic 84–125; BP diastolic 49–73; PULSE 66–138; RESP 17–23; TEMP 97.1–97.6; O2SAT 94
[2024-06-13 01:02] LABS: OXYGEN SATURATION (MIXED VEN) 58.4 % (60-80); PO2 MIXED VENOUS (TEMP COR) 36.3 mmHg (35-46)
[2024-06-13 01:30] LABS: HEMATOCRIT 25.8 % (42.0-52.0); HEMOGLOBIN 8.9 g/dl (14.0-17.9); MEAN CORPUSCULAR HEMOGLOBIN 30.9 PG (27.0-31.0); MEAN CORPUSCULAR HGB CONC 34.4 g/dL (33.0-36.5); MEAN CORPUSCULAR VOLUME 89.7 FL (78-98); MEAN PLATELET VOLUME 8.6 FL (7.4-10.4); PLATELET COUNT 95 X10'3 (140-440); RED BLOOD COUNT 2.87 X10'6 (4.70-6.10); RED CELL DISTRIBUTION WIDTH 19.3 % (11.5-14.5); WHITE BLOOD COUNT 6.6 X10'3 (4.5-11.0)
[2024-06-13] MEDS: VANCOMYCIN LEVEL IV SCH (03:00)
[2024-06-13 03:44] LABS: ALANINE AMINOTRANSFERASE 34 U/L (12-78); ALBUMIN 1.6 G/DL (3.4-5.0); ALBUMIN/GLOBULIN RATIO 0.6 (1.1-1.5); ALKALINE PHOSPHATASE 50 IU/L (46-116); ANION GAP 3 (8-16); ASPARTATE AMINO TRANSFERASE 80 U/L (10-37); BILIRUBIN,TOTAL 0.3 MG/DL (0.1-1.0); BLOOD UREA NITROGEN 45 MG/DL (7-18); CALCIUM 7.7 MG/DL (8.5-10.1); CHLORIDE 105 MMOL/L (99-107); GLUCOSE 164 MG/DL (70-104); SODIUM 139 MMOL/L (135-145); TOTAL CARBON DIOXIDE 31.2 MMOL/L (24-32); TOTAL PROTEIN 4.2 G/DL (6.4-8.2); eCRCL 30 ML/MIN; eGFR 45 ML/MIN
--- NOTE | 2024-06-13 03:44 | RADIOLOGY REPORT ---
CHEST RADIOGRAPH Indication: sob Technique: Single frontal view of the chest was obtained COMPARISON: DI CHEST,SINGLE VIEW on DOS: 06/12/24, DI CHEST,SINGLE VIEW on DOS: 06/11/24, DI CHEST,SINGLE VIEW on DOS: 04/14/24, DI CHEST,SINGLE VIEW on DOS: 04/06/24, DI CHEST,SINGLE VIEW on DOS: 08/31/23 FINDINGS: Lines and Tubes: Right internal jugular central venous catheter unchanged in position. Lungs: Clear Pleura: No effusion. No pneumothorax. Cardiomediastinal contours: Unremarkable Bones: Unremarkable IMPRESSION: 1. No acute disease.
[2024-06-13 03:57] LABS: POTASSIUM 2.9 MMOL/L (3.5-5.1)
[2024-06-13] MEDS: potassium Cl 20mEq/100mL bag 100 ML IV SCH (05:17)
[2024-06-13 06:45] LABS: HEMATOCRIT 25.5 % (42.0-52.0); HEMOGLOBIN 8.6 g/dl (14.0-17.9); MEAN CORPUSCULAR HEMOGLOBIN 30.4 PG (27.0-31.0); MEAN CORPUSCULAR HGB CONC 33.8 g/dL (33.0-36.5); MEAN CORPUSCULAR VOLUME 89.8 FL (78-98); MEAN PLATELET VOLUME 8.4 FL (7.4-10.4); PLATELET COUNT 87 X10'3 (140-440); RED BLOOD COUNT 2.84 X10'6 (4.70-6.10); RED CELL DISTRIBUTION WIDTH 19.1 % (11.5-14.5); WHITE BLOOD COUNT 6.9 X10'3 (4.5-11.0)
[2024-06-13 07:28] LABS: MAGNESIUM 1.7 MG/DL (1.5-2.4)
[2024-06-13] MEDS: pantoprazole 40 MG vial IV SCH (07:37)
[2024-06-13] MEDS: vancomycin/NS 1 GM ADD-VANTAGE 250 ML X 1 DOSE IV ONE (07:37)
[2024-06-13] MEDS: potassium Cl 40MEQ/1/2NS 520ml 520 ML IV PRN (07:37)
[2024-06-13] MEDS: potassium Cl 20mEq/100mL bag 100 ML IV ONE (09:20)
--- NOTE | 2024-06-13 10:12 | PROGRESS NOTE ---
Subjective Subjective Patient seen and examined at bedside in ICU. Reason for visit: Critical care follow-up Reviewed: Care Plan, H&P, Labs, Radiology Review of Systems Changes from previous H/P or p: No Changes Daily Progress Note Exam Vitals Vital Signs Date Time Temp Pulse Resp B/P (MAP) Pulse Ox O2 Delivery O2 Flow Rate FiO2 06/13/24 09:00 98.8 89 20 115/58 (77) Nasal Cannula 6.0 06/12/24 23:00 88 06/12/24 13:43 36 Result Diagram: 06/13/2459906/13/24599 Exam HEENT examination: Anicteric N/C/AT, PERRLA , sunken temples Neck: Supple no jugular venous distention no lymphadenopathy. Chest: Symmetric expansion bilaterally. Pulmonary: Clear to auscultation bilaterally with no wheezing rales rhonchi. Abdomen: Nondistended, +bowel sounds, Soft nontender no organomegaly. Extremities: No cyanosis clubbing and edema Neurological examination: Grossly nonfocal. VTE VTE Risk Score VTE Risk Score Reference Ranges: Score 0-1 = Low Risk (Aggressive mobilization; early ambulation; no VTE prophylaxis required) Score 2: Moderate Risk (Intermittent/Pneumatic Compression Device OR Lovenox/Heparin/Coumadin) Score 3-4: High Risk (Intermittent/Pneumatic Compression Device AND Lovenox/Heparin/Coumadin) Score > or = 5: Highest Risk (Intermittent/Pneumatic Compression Device AND Lovenox/Heparin/Coumadin) Assessment/Plan Assessment 83-year-old male with history of GI bleed, perforated peptic ulcer status post repair 10 years ago, s/p segmental resection of ileum, orthopedic surgery presented to the ED with chief complaints of coffee-ground emesis and melanotic stools for the past one and half days. Plan Acute upper gastrointestinal bleeding presenting with lightheadedness, melenic stool, hematemesis and hypotension: Previous history of GI bleeding secondary to severe erosive esophagitis. Follow H&H q.6 hours and continue Protonix. Acute kidney injury: Most likely due to hypotension caused by upper GI bleeding. Responding well to fluid resuscitation as self evident in the declining BUN and creatinine. Lactic acidosis: Resolved. Most likely due to hypoperfusion and improving with fluid resuscitation. COPD: Suggested by hypoxemia i.e. ABG on room air reveals a PO2 of 53 with a background history of smoking and a chest x-ray highly suggestive of COPD. Patient now on supplemental oxygen. Titrate oxygen to keep her pulse oximeter reading of at least 88% at all times. Septic shock: Suggested by hypothermia, hypotension and severe lactic acidosis. Patient already received a dose of Zosyn. We will empirically treat with vancomycin and Zosyn and obtain blood cultures. Amphetamine use: An ongoing problem and positive on today's toxicology. New onset hypoglycemia this morning: Currently on 70% dextrose infusing at 30 mL/hour. Code status: Full code Sedation/analgesia: Currently not indicated Nutrition: Keep NPO, apparently he has been aspirating. IVs: Now has a central line and one PIV. Overall prognosis: Guarded Critical care time in excess of 35 minutes. JULIA TYLER MD Jun 13, 2024 10:12
[2024-06-13 12:09] LABS: POTASSIUM 3.9 MMOL/L (3.5-5.1)
[2024-06-13] MEDS: dextrose 5%-1/2 normal saline 1,000 ML IV SCH (13:45)
[2024-06-13] MEDS ORDERED: CLINDAMYCIN 600mg IN NS 50ML 50 ML IV SCH (14:00)
--- NOTE | 2024-06-13 14:14 | PROGRESS NOTE- Residence ---
Progress Note - Resident Providers to CC Resident Creating Document: NATALY HANEY RES ~ Antibiotic Timeout Antibiotic Ordered?: Yes Subjective Patient seen and examined at bedside. He states he has been having difficulty swallowing, sore throat since the last 1 week. He is also not being to eat well secondary to the above. He also has hoarseness of voice. He had an episode of aspiration last night and currently NPO. will continue to keep him NPO for now, will get CT NECK to look for any soft tissue issues that could be cauing the hoarsness and dysphagia. His oxygen content has also gone up from 4 NC initially to 6 LT NC now. He states he lives with his . Nurses are also having a hard time to get blood glucose, looks like he has vascular issues, his finger tips and toes are cold to touch and cyanotic. Will get vascular studies to further evaluate. He has a history of smoking. Will switch fluids to D5 1/2 NS. Keep him NPO Objective Vital Signs Date Time Temp Pulse Resp B/P (MAP) Pulse Ox O2 Delivery O2 Flow Rate FiO2 06/13/24 09:00 98.8 89 20 115/58 (77) Nasal Cannula 6.0 06/12/24 23:00 88 06/12/24 13:43 36 Result Diagram: 06/13/24 0600 06/13/24 1134 General: Elderly frail male, Awake and Alert, in mild acute distress. HEENT: Conjunctiva pale, Sclera clear, Mucus Membranes dry. Neck: Supple without masses and tenderness. Resp: Unlabored. Equal breath sounds bilaterally. Heart: Regular rhythm, normal S1 and S2, no rub, murmur or gallop. Abdomen: Soft and non tender no organomegaly. Normal bowel sounds x4 quadrant normoactive. No guarding or rigidity. Extremities: Finger tips and toes cyanotic. Normal ROM, no swelling, nontender. No edema. 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 Skin: Warm and Dry. Assessment Assessment 83-year-old male with history of GI bleed, perforated peptic ulcer status post repair 10 years ago, s/p segmental resection of ileum, orthopedic surgery presented to the ED with chief complaints of coffee-ground emesis and melanotic stools for the past one and half days. Plan Plan Dysphagia, under evaluation Has been having swallowing issues since a week prior to admission Had an episode of aspiration last night, currently NPO we will continue NPO for now Follow up with CT neck for any soft tissue infection/inflammation Follow up with ESR, repeat lactate Continue IV clindamycin q.6 H Possible vascular disease He has a history of smoking, his fingertips and toes are cyanotic in appearance and cold to touch We will get vascular studies, follow up with results GI bleed History of severe reflux esophagitis and upper GI bleed in the past Septic shock Rhabdomyolysis secondary to above H&H on admission 13.2, 40.9 Elevated BUN and creatinine 108, 4.02 likely secondary to severe GI bleed Continues to have melanotic stools Received Protonix 80 IV x1 Continue IV Protonix Has a history of iron-deficiency anemia, per labs from May 05 low iron and ferritin Monitor H&H q.6 hours and transfuse for hemoglobin less than seven GI [address] Keita has been consulted, appreciate recommendations 06/12/2024: Continuing IV fluid resuscitation, Lactic acid downtrending No GI intervention at this time, we will continue to monitor H&H 06/13/2024: H and H today 8.6, 25.5 Changed IV fluids to D5 half-normal saline at 100 mL/hour Continue IV Protonix b.i.d. Leukocytosis with bandemia Septic shock source unknown Lactic acidosis On empiric vanc and Zosyn IV fluid bolus and fluid resuscitation Follow up with cultures 06/12/2024: Continue IV antibiotics 06/13/2024 Cultures NGTD DC vanc and Zosyn Started clindamycin IV q.6 H Elevated troponins Type 2 LA likely secondary to demand ischemia Patient does not have any chest pain, no ischemic changes noted on EKG Troponins downtrending Acute kidney injury likely secondary to renal tubular stasis Creatinine 4.02, baseline creatinine 0.7-0.9 Kidney injury could be secondary to severe GI bleed Continue IV fluid resuscitation Monitor BMP 06/13/2024: Creatinine downtrending, continue IVF 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 Overall systolic function is mildly reduced. LVEF is 45-50%. GDM T as tolerated when able Methamphetamine use Code Status: Full code DVT prophylaxis: None in view of active GI bleed Analgesia/sedation: None Line/tube: PIV GI prophylaxis: Protonix Prognosis: Guarded Disposition: Continue medical management. Follow up with CT neck, vascular studies, repeat lactic acid, BNP, ESR. Nataly Haney MD. IM Resident PGY-2 Date of Service: Jun 13, 2024 Billing Provider: TALI FARLEY MD Common Visit Codes: [id number] INP/OBS CARE(HIGH) NATALY HANEY, JACEY Jun 13, 2024 14:14 TALI FARLEY MD Jun 13, 2024 20:50
--- NOTE | 2024-06-13 14:28 | CARDIOLOGY REPORT ---
APPROVED REPORT EXAM: Limited 2D, Doppler, and color-flow Echocardiogram. Patient Location: ER RM 3 Blood Pressure: 122/79 mmHg Heart Rate: 90 - 122 bpm Rhythm: Atrial Fibrillation Indications Congestive Heart Failure Troponin: 140, 102 Pro BNP: 4844 Hypertension Atrial Fibrillation CONSULTANT TECHNOLOGY: Unknown Prevous ECHO: 04/14/24, [facility], EF: 45-50; mLAE; Hill/MR; mTR 2D Dimensions LA Diam3.1 cm IVSd 1.0 (0.7-1.1cm) LVDd 3.5 cm PWd 1.1 (0.7-1.1cm) IVSs 1.5 (0.8-1.2cm) LVDs 2.2 (2.5-4.0cm) PWs 1.3 (0.8-1.2cm) LVOT Diameter 2.03 (1.8-2.4cm) LVEF(%) 68.4 (>50%) Ao Asc Diam.3.21 cm IVC 11.19 mmFS (%) 37.3 % SV 35.3 ml CO 3.7 L/min M-Mode Dimensions Left Atrium(MM) 3.11 (2.5-4.0cm) Aortic Root 3.46 (2.2-3.7cm) Aortic Cusp Exc 1.40 (1.5-2.0cm) MV EPSS 1.1 (<0.5cm) Aortic Valve AoV Peak Edouard. 171.8 cm/s AoV VTI 24.2 cm AO Peak GR. 11.8 mmHg AO Mean GR. 7 mmHg LVOT VTI 16.25 cm LVOT Peak Edouard. 108.0 cm/s FUENTES(VTI)/BSA 2.17 cm2/m2 FUENTES (VTI) 2.17 cm2 Mitral Valve MV E Velocity 52.7 cm/s MV Peak Gr. 6 mmHg MV DECEL TIME 324 ms MV A Velocity 99.4 cm/s MV PHT 68 ms E/A Ratio 0.5 MVA (PHT) 3.24 cm2 MV LEys107.9 cm/s TDI Lateral E' P. V16.43 cm/s E/Lateral E' 3.2 Tricuspid Valve TR P. Velocity 286 cm/s RAP ESTIMATE 10 mmHg TR Peak Gr. 33 mmHg RVSP 43 mmHg LEFT VENTRICLE Normal LV size and wall thickness. Overall systolic function is normal. Overall LVEF is 65-70%. RIGHT VENTRICLE RV is normal size and function. ATRIA The left atrium size is normal. AORTIC VALVE Trileaflet AV appears mildly sclerotic without stenosis. No insufficiency. MITRAL VALVE Mitral valve leaflets are mildly thickened with mild annular calcification. Trace regurgitation. TRICUSPID VALVE The tricuspid valve is normal in structure with mild regurgitation. PULMONIC VALVE Pulmonic valve is grossly normal in structure with physiologic insufficiency. GREAT VESSELS The aortic root is normal in size. The ascending aorta is normal in size. The IVC is normal in size a nd collapses >50% with inspiration. PERICARDIUM Normal pericardium. No effusion. Other Information Study Quality: Adequate Conclusion Overall LVEF is 65-70%. Normal LV size and wall thickness. Overall systolic function is normal. RV is normal size and function. Trileaflet AV appears mildly sclerotic without stenosis. No insufficiency. Mitral valve leaflets are mildly thickened with mild annular calcification. Trace regurgitation. Mitral valve leaflets are mildly thickened with mild annular calcification. Trace regurgitation. The tricuspid valve is normal in structure with mild regurgitation. Pulmonic valve is grossly normal in structure with physiologic insufficiency. Normal pericardium. No effusion.
[2024-06-13 14:38] LABS: ALANINE AMINOTRANSFERASE 35 U/L (12-78); ALBUMIN 1.7 G/DL (3.4-5.0); ALBUMIN/GLOBULIN RATIO 0.6 (1.1-1.5); ALKALINE PHOSPHATASE 63 IU/L (46-116); ANION GAP 4 (8-16); ASPARTATE AMINO TRANSFERASE 78 U/L (10-37); BILIRUBIN,TOTAL 0.3 MG/DL (0.1-1.0); BLOOD UREA NITROGEN 32 MG/DL (7-18); BUN/CREATININE RATIO 26.4 (10.0-20.0); CALCIUM 7.8 MG/DL (8.5-10.1); CHLORIDE 107 MMOL/L (99-107); CREATININE 1.21 MG/DL (0.60-1.10); GLUCOSE 102 MG/DL (70-104); POTASSIUM 3.8 MMOL/L (3.5-5.1); SODIUM 139 MMOL/L (135-145); TOTAL PROTEIN 4.6 G/DL (6.4-8.2); eCRCL 37 ML/MIN; eGFR 58 ML/MIN
[2024-06-13 15:51] LABS: PRO BRAIN NATRIURETIC PEPTIDE 933 PG/ML (0-450)
--- NOTE | 2024-06-13 17:03 | RADIOLOGY REPORT ---
EXAM: CT CT NECK SOFT TISSUES INDICATION: difficulty swallowing Exam Date: 06/13/2024 02:13 PM COMPARISON: None TECHNIQUE: CT of the neck without intravenous contrast. RADIATION DOSE: CTDIvol: 32 mGy, DLP: 882 mGy*cm Comments: There is significant streak artifact in the lower neck secondary to the bilateral shoulder arthroplasties. FINDINGS: Within the limitation of no intravenous contrast, there is no evidence of cervical mass lesion, patho logically enlarged lymph nodes or fluid collection. The airway and larynx are unremarkable. There is frothy opacity in the hypopharynx (series 4, image 4 2). No radiopaque foreign bodies. The parotid, submandibular and thyroid glands are unremarkable. The limited visualized portions of the brain demonstrate mild volume loss. Emphysematous changes i n the lung apices. Bilateral lens replacements. Patient is edentulous. Partially visualized right IJ CVC. Heavy atherosclerosis at the carotid bulbs, [id number] t. Bilateral shoulder arthroplasties. Advanced degenerative disc change at C5-C6 and C6-C7. Mild anterol isthesis C3/C4, C4/C5, and C7/T1. No evidence of acute osseous abnormalities. IMPRESSION: Exam is limited secondary to lack of intravenous contrast. There is also significant streak artifact in the lower neck secondary to the bilateral shoulder arthroplasties. Within this limitation: 1. Frothy opacity in the hypopharynx. No evidence of radiopaque foreign bodies or obvious mass lesion s. 2. Heavy atherosclerosis of the iffqa-xjiwkli-ikjk-left carotid bulbs. 3. Emphysematous changes of the lung apices.
--- NOTE | 2024-06-13 18:01 | VASCULAR REPORT ---
EXAM: VASC VL ALEXX ANKLE/BRACHIAL INDEX CLINICAL HISTORY: Discolored toe Peripheral vascular disease COMPARISON: None TECHNIQUE: Bilateral systolic ankle and brachial pressures are obtained, with ankle pulse volume waveforms and i ndices. FINDINGS: Pressures: Right Left Brachial IUD present mmHg 125 mmHg PT 130 mmHg 100 mmHg DP 140 mmHg 20 mmHg ALEXX: Right Left 1.12 .96 Pulse volume waveforms: Normal IMPRESSION: 1. Normal on the right. 2. Borderline on the left. 1.0-1.4: normal 0.91-0.99 borderline 0.9: abnormal (i.e. PAD) 0.4-0.9: [id number] PAD <0.4: suggestive of severe PAD
--- NOTE | 2024-06-13 18:11 | VASCULAR REPORT ---
BILATERAL Lower Extremity Arterial Duplex [facility] ARTERIAL Date: 06/13/2024 03:01 PM Clinical History: Discolored toe Comparison: None Technique: Duplex Doppler evaluation including color Doppler and spectral/pulsed waveform analysis of the lower extremity arteries was performed. 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 LEFT: Peak systolic velocities are as follows: DEPARTMENT SUPERVISOR 85 cm/s Deep femoral 52 cm/s SFA proximal 73 cm/s SFA mid-portion 96 cm/s SFA distal 63 cm/s Popliteal 63 cm/s Posterior tibial 31 cm/s Peroneal 43 cm/s Dorsalis pedis 101 cm/s The waveforms are multiphasic. REFERENCE VALUES, [facility]) vascular Imaging Lab Criteria: Peak systolic velocity ranges (in cm/sec) are as follows: <150 cm/s - <20 % stenosis 150-200 cm/s - 20-49% stenosis 200-300 cm/s - 50-75% stenosis >300 cm/s -> 75% stenosis IMPRESSION: 1. There is no evidence for peripheral vascular insufficiency in the right lower extremity. 2. There is no evidence for peripheral vascular insufficiency in the left lower extremity. 3. No significant focal stenosis is identified. 4. Limited visualization of the posterior tibial artery bilaterally due to small size.
[2024-06-13] MEDS: clindamycin 600mg/D5W 50ml 50 ML IV SCH (20:21)
[2024-06-13 22:34] LABS: APTT 36 SECONDS (22-32); INR 1.4 INR
[2024-06-14 01:55] VITALS: BP 108/50; PULSE 75; RESP 19; TEMP 97.5; O2SAT 94
[2024-06-14 03:45] LABS: ALANINE AMINOTRANSFERASE 37 U/L (12-78); ALBUMIN 1.6 G/DL (3.4-5.0); ALBUMIN/GLOBULIN RATIO 0.6 (1.1-1.5); ALKALINE PHOSPHATASE 62 IU/L (46-116); ANION GAP 5 (8-16); ASPARTATE AMINO TRANSFERASE 72 U/L (10-37); BILIRUBIN,TOTAL 0.4 MG/DL (0.1-1.0); BLOOD UREA NITROGEN 28 MG/DL (7-18); BUN/CREATININE RATIO 26.7 (10.0-20.0); CALCIUM 7.5 MG/DL (8.5-10.1); CHLORIDE 107 MMOL/L (99-107); CREATININE 1.05 MG/DL (0.60-1.10); GLUCOSE 117 MG/DL (70-104); POTASSIUM 3.5 MMOL/L (3.5-5.1); SODIUM 139 MMOL/L (135-145); TOTAL CARBON DIOXIDE 27.4 MMOL/L (24-32); TOTAL PROTEIN 4.2 G/DL (6.4-8.2); VANCOMYCIN,RANDOM 11.4 ug/mL (20.0-30.0); eCRCL 42 ML/MIN; eGFR 68 ML/MIN
[2024-06-14 07:00] VITALS: BP 112/50; PULSE 75; RESP 19; RESP 20; TEMP 97.5; O2SAT 94
--- NOTE | 2024-06-14 11:42 | VASCULAR REPORT ---
Bilateral upper Extremity Arterial Duplex Date: 06/14/2024 08:20 AM Clinical History: Cold hand Comparison: VASC VL ARTERIAL on DOS: 06/13/24 Findings: Duplex Doppler evaluation including color Doppler and spectral/pulsed waveform analysis of the upper extremities are obtained. Velocities in cm/sec: Right upper extremity: Subclavian: 62 Axillary: 61 Brachial: 89 Radial: 85 Ulnar: 69 Left upper extremity: Subclavian: 121 Axillary: 68 Brachial: 105 Radial: 76 Ulnar: 91 Please note that the palmar arches are not adequately characterized. Biphasic/ triphasic waveforms within the right subclavian, brachial, radial, ulnar arteries. Biphasic/ triphasic waveforms within the left subclavian, axillary, brachial, radial, ulnar arteries. There is scattered atherosclerotic plaque. IMPRESSION: Atherosclerotic disease. No sonographic evidence for hemodynamically significant stenosis involving the bilateral subclavian/ axillary/ brachial / radial / ulnar arteries. Bilateral palmar arches inadequately assessed. Correlate clinically.
[2024-06-14] MEDS ORDERED: iohexol 300mg/ml 100ml inj. ONE (14:11)
--- NOTE | 2024-06-14 15:09 | RADIOLOGY REPORT ---
Accession Number: [id number] Clinical History: suspicious abscess CT CT NECK SOFT TISSUES W/ IV CONTRAST Comparison: CT CT NECK SOFT TISSUES on DOS: 06/13/24 Technique: After the intravenous administration of intravenous contrast, multi-slice CT scan of the n adam was performed without complication. Radiation Dose Information: CT Dose: CTDI volume is 16 mGy. Dose-length product is 566.25 mGy*cm Findings: The nasopharynx, oropharynx, hypopharynx, esophagus, and larynx demonstrate normal patency and contour without evidence of a soft tissue mass at this time. Bilaterally, the parotid, submandibular, and sublingual glands are normal in their size, shape, and a ttenuation without evidence of calcification. The visualized oral tongue, tongue base, and floor of mouth regions demonstrate no obvious mass or ab normal enhancement. Evaluation of the lateral spaces of the neck demonstrates no obvious masses at this time or significa nt lymphadenopathy. The thyroid gland is normal in size, shape, and attenuation without evidence of c alcification. After the administration of contrast, no focal areas of abnormal enhancement are demonstrated. Air between dentures and soft tissues. No wall enhancing soft tissue masses to suggest abscess. Impression: 1. Unremarkable contrast enhanced CT scan of the neck.
[2024-06-14 18:00] VITALS: BP 112/42; PULSE 65; RESP 18; TEMP 98.7; O2SAT 92
--- NOTE | 2024-06-14 19:16 | PROGRESS NOTE- Residence ---
Progress Note - Resident Providers to CC Resident Creating Document: EILEEN SUNSHINE RES ~ Antibiotic Timeout Antibiotic Ordered?: Yes Subjective Patient seen and examined at bedside. Patient still has hoarseness when complains of difficulty swallowing. He also has some abdominal tenderness but no abdominal pain and complains of two episodes of diarrhea yesterday. He does have some colitis on the CT of the abdomen. Creatinine is back to baseline. Antibiotics have been switched to clindamycin yesterday. He is still NPO. Consider TPN tomorrow if not able to swallow. Hypercoagulability workup is pending. Objective Vital Signs Date Time Temp Pulse Resp B/P (MAP) Pulse Ox O2 Delivery O2 Flow Rate FiO2 06/14/24 06:00 72 06/14/24 01:55 97.5 19 108/50 (69) 94 Nasal Cannula 5.0 06/12/24 13:43 36 Result Diagram: 06/13/24 0600 06/14/24 0210 General: Elderly frail male, Awake and Alert, in mild acute distress. HEENT: Conjunctiva pale, Sclera clear, Mucus Membranes dry. Neck: Supple without masses and tenderness. Resp: Unlabored. Equal breath sounds bilaterally. Heart: Regular rhythm, normal S1 and S2, no rub, murmur or gallop. Abdomen: Soft and slightly tender no organomegaly. Normal bowel sounds x4 quadrant normoactive. No guarding or rigidity. Extremities: Finger tips and toes cyanotic. Normal ROM, no swelling, nontender. No edema. CLINICAL SCIENTIST: No gross motor or sensory abnormalities. Skin: Warm and Dry. Coagulation Studies Laboratory Tests Test 06/13/24 21:50 06/13/24 23:28 Prothrombin Time 14.0 SECONDS (9.0-12.0) H INR International Normalized Ratio 1.4 INR Activated Partial Thromboplast Time 36 SECONDS (22-32) H Coagulation Comments Assessment Assessment 83-year-old male with history of GI bleed, perforated peptic ulcer status post repair 10 years ago, s/p segmental resection of ileum, orthopedic surgery presented to the ED with chief complaints of coffee-ground emesis and melanotic stools for the past one and half days. Plan Plan Dysphagia, under evaluation Has been having swallowing issues since a week prior to admission Had an episode of aspiration last night, currently NPO we will continue NPO for now Follow up with CT neck for any soft tissue infection/inflammation Follow up with ESR, repeat lactate Continue IV clindamycin q.6 H 06/14/2024: ESR is 75, lactic acid normalized. Ordered CT neck with IV contrast to rule out abscess. Follow up Possible vascular disease , can not rule out thromboangitis obliterans He has a history of smoking, his fingertips and toes are cyanotic in appearance and cold to touch We will get vascular studies, follow up with results 06/14/2024: ESR is high. Ordered CTA bilateral upper extremities and CTA of the abdominal aorta with runoff for tomorrow. Follow up GI bleed History of severe reflux esophagitis and upper GI bleed in the past Septic shock Rhabdomyolysis secondary to above Thrombocytopenia of unknown etiology H&H on admission 13.2, 40.9 Elevated BUN and creatinine 108, 4.02 likely secondary to severe GI bleed Continues to have melanotic stools Received Protonix 80 IV x1 Continue IV Protonix Has a history of iron-deficiency anemia, per labs from May 05 low iron and ferritin Monitor H&H q.6 hours and transfuse for hemoglobin less than seven GI Dr Keita has been consulted, appreciate recommendations 06/12/2024: Continuing IV fluid resuscitation, Lactic acid downtrending No GI intervention at this time, we will continue to monitor H&H 06/13/2024: H and H today 8.6, 25.5 Changed IV fluids to D5 half-normal saline at 100 mL/hour Continue IV Protonix b.i.d. 06/14/2024: Patient had blood sugar of 59 in the evening. D50 IV push given. Recheck in 1 hour. Continue IV fluids D5 half NS and Protonix Leukocytosis with bandemia Septic shock source unknown Lactic acidosis On empiric vanc and Zosyn IV fluid bolus and fluid resuscitation Follow up with cultures 06/12/2024: Continue IV antibiotics 06/13/2024 Cultures NGTD DC vanc and Zosyn Started clindamycin IV q.6 H 06/14/2024: Consider TPN if the patient fails swallow evaluation tomorrow. CT neck with IV contrast is negative for any abscess. 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 Overall systolic function is mildly reduced. LVEF is 45-50%. GDM T as tolerated when able Methamphetamine use Code Status: Full code DVT prophylaxis: None in view of active GI bleed and possible HIT Analgesia/sedation: None Line/tube: PIV GI prophylaxis: Protonix Prognosis: Guarded Disposition: Continue medical management. Follow up with CTA upper extremities and abdominal aorta, vascular studies. Eileen Ibrahim MD. IM Resident PGY-2 Addendum worsening thrombocytopenia, poss 2 to sepsis sepsis unknown source c/o sore throat, repeat ct with iv contrast alexander bscess; swallow eval in am bilat digits cyanosis; elevated aptt, inr Date of Service: Jun 14, 2024 Billing Provider: TALI FARLEY MD Common Visit Codes: [id number] INP/OBS CARE(HIGH) EILEEN SUNSHINE, RES Jun 14, 2024 19:16 TALI FARLEY MD Jun 14, 2024 19:26
[2024-06-14] MEDS: dextrose 50%-water 50ml dispensing syringe IV ONE (19:26)
[2024-06-14] MEDS ORDERED: VANCOMYCIN/WATER FOR INJ (PEG) 1.25GM/250 ML IVPB IV ONE (21:00)
[2024-06-14] MEDS: VANCOmycin 1250MG/NS 250ml Bag 250 ML IV ONE (21:13)
[2024-06-14 22:00] VITALS: BP 101/47; PULSE 57; RESP 23; TEMP 98.6; O2SAT 88
[2024-06-15] VITALS (7 sets, daily range): BP systolic 111–141; BP diastolic 60–97; PULSE 64–147; RESP 16–34; TEMP 97.1–97.5; O2SAT 84–96
[2024-06-15] MEDS: clindamycin 600mg/D5W 50ml 50 ML IV SCH (00:10)
[2024-06-15 06:16] LABS: PLATELET COUNT 83 X10'3 (140-440)
[2024-06-15 06:59] LABS: ALANINE AMINOTRANSFERASE 35 U/L (12-78); ALBUMIN 1.7 G/DL (3.4-5.0); ALBUMIN/GLOBULIN RATIO 0.6 (1.1-1.5); ALKALINE PHOSPHATASE 69 IU/L (46-116); ANION GAP 6 (8-16); ASPARTATE AMINO TRANSFERASE 55 U/L (10-37); BILIRUBIN,TOTAL 0.4 MG/DL (0.1-1.0); BLOOD UREA NITROGEN 18 MG/DL (7-18); CALCIUM 7.4 MG/DL (8.5-10.1); CHLORIDE 108 MMOL/L (99-107); CREATININE 0.82 MG/DL (0.60-1.10); GLUCOSE 104 MG/DL (70-104); POTASSIUM 3.1 MMOL/L (3.5-5.1); SODIUM 139 MMOL/L (135-145); TOTAL CARBON DIOXIDE 24.9 MMOL/L (24-32); TOTAL PROTEIN 4.4 G/DL (6.4-8.2); VANCOMYCIN,RANDOM 21.1 ug/mL (20.0-30.0); eCRCL 54 ML/MIN; eGFR 90 ML/MIN
[2024-06-15 07:20] LABS: APTT 39 SECONDS (22-32); D-DIMER 1.71 MG/L FEU (0-0.50); FIBRINOGEN 650 MG/DL (177-424); INR 1.9 INR; PROTHROMBIN TIME 18.2 SECONDS (9.0-12.0)
[2024-06-15] MEDS: CefTRIAXone/D5W-Rocephin 1gm 50 ML IV SCH (08:00)
[2024-06-15] MEDS ORDERED: magnesium sulf-water 4G/100mL 100 ML IV PRN (08:10)
[2024-06-15] MEDS ORDERED: WATER FOR INJECTION,STERILE 71 ML in dextrose 70%-water 179 ML IV SCH (08:10)
[2024-06-15] MEDS ORDERED: magnesium sulf-water 2g/50mL 50 ML IV PRN ×2 (08:10→08:30)
[2024-06-15] MEDS ORDERED: magnesium Cl slow-release 64mg tablet PO PRN (08:30)
[2024-06-15] MEDS ORDERED: potassium Cl 20 mEq SR tablet PO PRN (08:30)
[2024-06-15] MEDS: dextrose 50%-water 50ml dispensing syringe IV ONE (08:56)
[2024-06-15] MEDS ORDERED: SODIUM CHLORIDE IV SCH (09:00)
[2024-06-15] MEDS ORDERED: VANCOMYCIN IV SCH (09:00)
[2024-06-15] MEDS ORDERED: [UNRECOGNIZED DRUG - OTHER] IV SCH (09:00)
[2024-06-15] MEDS: VANCOMYCIN 500MG/WATER FOR INJ (PEG) PREMIX 100 ML IV SCH (09:33)
[2024-06-15] MEDS: potassium Cl 20 mEq SR tablet PO PRN (09:34)
[2024-06-15 13:52] LABS: HEMATOCRIT 24.7 % (42.0-52.0); MEAN CORPUSCULAR HEMOGLOBIN 29.4 PG (27.0-31.0); MEAN CORPUSCULAR HGB CONC 32.4 g/dL (33.0-36.5); MEAN CORPUSCULAR VOLUME 90.7 FL (78-98); PLATELET COUNT 89 X10'3 (140-440); RED BLOOD COUNT 2.72 X10'6 (4.70-6.10); RED CELL DISTRIBUTION WIDTH 19.3 % (11.5-14.5); WHITE BLOOD COUNT 6.6 X10'3 (4.5-11.0)
--- NOTE | 2024-06-15 15:48 | PROGRESS NOTE- Residence ---
Progress Note - Resident Providers to CC Resident Creating Document: JOHN SOLORZANO RES ~ Antibiotic Timeout Antibiotic Ordered?: Yes Subjective Pt passed ST eval and bedside swallow test. He is communicating in the full sentences while eating the puree and nectar thick diet at the bedside. His HOV is getting better, however, still experiencing throat hurting. His discoloration of the tips of the extremeties are getting better with the normal coloration this morning without complaining any pain at that moment. Objective Vital Signs Date Time Temp Pulse Resp B/P (MAP) Pulse Ox O2 Delivery O2 Flow Rate FiO2 06/15/24 06:00 70 06/15/24 02:00 97.2 16 111/60 (77) 96 06/14/24 22:00 Room Air 5.0 06/12/24 13:43 36 Result Diagram: 06/15/24 1827 06/15/24 1659 Coagulation Studies Laboratory Tests Test 06/13/24 23:28 06/15/24 05:57 Prothrombin Time 18.2 SECONDS (9.0-12.0) H INR International Normalized Ratio 1.9 INR Activated Partial Thromboplast Time 39 SECONDS (22-32) H Fibrinogen 650 MG/DL (177-424) H D-Dimer 1.71 MG/L FEU (0-0.50) H DIC Profile Interpretation See dic report Coagulation Comments Assessment Assessment An 83-year-old male with history of GI bleed, perforated peptic ulcer status post repair 10 years ago, s/p segmental resection of ileum, orthopedic surgery presented to the ED with chief complaints of coffee-ground emesis and melanic stools for the past one and half days and acute onset of the sore throat with HOV, and discoloration of the tips of the extremities. Plan Plan # A fib w/ RVR on no anticoag- [id number] score three # Acute hypoxic resp failure From the Pulmonary edema 06/15/24: Given one time dose of IV Lasix 40 mg -put the patient on BiPAP therapy after ABG check, recheck ABG again -heart rate was around 150 with blood pressure around 130/80 mm Hg -given one time dose of amiodarone loading dose 150 mg followed by IV push Cardizem 50 mg (0.25 milligram/kg) and followed by p.o. Cardizem 30 mg q.6 hours -monitor vitals and a urine output -we will consult the patient for requirement of anticoagulation with the benefits and risks of anticoagulation therapy. #Dysphagia, passed ST Eval, approved for the Puree and [place] thick diet 06/15/24: [place] thick and puree diet, no difficulty and chocking on swallowing -HOV is still persistent and sore throat as well. -2D echo on 06/12/2024 showed LVEF 65-70%, mitral trace regurgitation with n ormal size left atrium and normal pericardium and no effusion. -CT neck W/O IV contrast on 06/13/2024 showed IMPRESSION: Exam is limited secondary to lack of intravenous contrast. There is also significant streak artifact in the lower neck secondary to the bilateral shoulder arthroplasties. Within this limitation: 1. Frothy opacity in the hypopharynx. No evidence of radiopaque foreign bodies or obvious mass lesions. 2. Heavy atherosclerosis of the dxama-[id number]-tcuv-left carotid bulbs. 3. Emphysematous changes of the lung apices. -repeated CT neck and soft tissue W/IV contrast on 06/14/2024 showed Findings: The nasopharynx, oropharynx, hypopharynx, esophagus, and larynx demonstrate normal patency and contour without evidence of a soft tissue mass at this time. Bilaterally, the parotid, submandibular, and sublingual glands are normal in their size, shape, and attenuation without evidence of calcification. The visualized oral tongue, tongue base, and floor of mouth regions demonstrate no obvious mass or abnormal enhancement. Evaluation of the lateral spaces of the neck demonstrates no obvious masses at this time or significant lymphadenopathy. The thyroid gland is normal in size, shape, and attenuation without evidence of calcification. After the administration of contrast, no focal areas of abnormal enhancement are demonstrated. Air between dentures and soft tissues. No wall enhancing soft tissue masses to suggest abscess. Impression: 1. Unremarkable contrast enhanced CT scan of the neck. 06/14/24:Has been having swallowing issues since a week prior to admission Had an episode of aspiration last night, currently NPO we will continue NPO for now Follow up with CT neck for any soft tissue infection/inflammation Follow up with ESR, repeat lactate Continue IV clindamycin q.6 H 06/14/2024: ESR is 75, lactic acid normalized. Ordered CT neck with IV contrast to rule out abscess. Follow up #Possible vascular disease , can not rule out thromboangitis obliterans 06/15/24: Arterial ultrasound on 06/13/2024 showed IMPRESSION: 1. There is no evidence for peripheral vascular insufficiency in the right lower extremity. 2. There is no evidence for peripheral vascular insufficiency in the left lower extremity. 3. No significant focal stenosis is identified. 4. Limited visualization of the posterior tibial artery bilaterally due to small size. ALEXX Ext on 06/13/24 showed IMPRESSION: 1. Normal on the right. 2. Borderline on the left. Arterial ultrasound Doppler on 06/14/2024 showed IMPRESSION: Atherosclerotic disease. No sonographic evidence for hemodynamically significant stenosis involving the bilateral subclavian/ axillary/ brachial / radial / ulnar arteries. Bilateral palmar arches inadequately assessed. Correlate clinically. -NO need to proceed w/ CTA abd aorta and Upper extremeties after undergone multiple imaging to rule out the ischemic causes and pt showed the improvement this morning. 06/14/24:He has a history of smoking, his fingertips and toes are cyanotic in appearance and cold to touch We will get vascular studies, follow up with results 06/14/2024: ESR is high. Ordered CTA bilateral upper extremities and CTA of the abdominal aorta with runoff for tomorrow. Follow up #Possible Upper GI bleed #History of severe reflux esophagitis and upper GI bleed in the past # normochromic normocytic anemia #Septic shock -improving, unknown source of origin #Leukocytosis with bandemia #Thrombocytopenia of unknown etiology # Lactic acidosis- improved #Rhabdomyolysis secondary to above 06/15/24: Today rechecked coag profile showed PT 18.2 and aPTT 39, which are prolonged with Fibrinogen 650 and elevated D dimer 1.71 which are indicating that the chronic reactive inflammation or infection status and normochromic normocytic anemia with hemoglobin 8 and platelet count downtrending to 89 wishes most probably due to consumptive anemia and thrombocytopenia from possible upper GI bleeding Vs sepsis. -He is recovering from the possible sepsis POA with the unknown source of origin mostly from the upper GI bleeding and esophagitis Hx. Normalized Lactic acid. -F/up w/ H&H Q6Hrs to trend his Hb for the possible PRBC transfusion with the symptomatic hemoglobin less than seven, monitor bloody bowel movement 06/14/24:H&H on admission 13.2, 40.9 Elevated BUN and creatinine 108, 4.02 likely secondary to severe GI bleed Continues to have melanotic stools Received Protonix 80 IV x1 Continue IV Protonix Has a history of iron-deficiency anemia, per labs from May 05 low iron and ferritin Monitor H&H q.6 hours and transfuse for hemoglobin less than seven GI Dr Keita has been consulted, appreciate recommendations 06/12/2024: Continuing IV fluid resuscitation, Lactic acid downtrending No GI intervention at this time, we will continue to monitor H&H 06/13/2024: H and H today 8.6, 25.5 Changed IV fluids to D5 half-normal saline at 100 mL/hour Continue IV Protonix b.i.d. 06/14/2024: Patient had blood sugar of 59 in the evening. D50 IV push given. Recheck in 1 hour. Continue IV fluids D5 half NS and Protonix On empiric vanc and Zosyn IV fluid bolus and fluid resuscitation Follow up with cultures 06/12/2024: Continue IV antibiotics 06/13/2024 Cultures NGTD DC vanc and Zosyn Started clindamycin IV q.6 H 06/14/2024: Consider TPN if the patient fails swallow evaluation tomorrow. CT neck with IV contrast is negative for any abscess. #Elevated troponins #Type 2 OR likely secondary to demand ischemia 06/15/24: NO more trending Trop and No EKG changes with no active typical angina at that moment. plan to recheck the EKG once pt is symptomatic from the possible Symptomatic anemia etc 06/14/24:Patient does not have any chest pain, no ischemic changes noted on EKG Troponins downtrending #Acute kidney injury likely secondary to renal tubular stasis Vs ATN from Sepsis #Trending down Transaminitis from the possible ischemic Liver injury from sepsis 06/15/24: Cr 0.82 and trending down with the improvement on the Fluid replacement. LFTs are normalizing now 06/14/24:Creatinine 4.02, baseline creatinine 0.7-0.9 Kidney injury could be secondary to severe GI bleed Continue IV fluid resuscitation Monitor BMP 06/13/2024: Creatinine downtrending, continue IVF 06/14/2024: SUSAN resolved #History of Substance abuse (Methamphetamine induced cardiomyopathy) #CHF with moderately reduced ejection fraction per echo in April 2024 Echo: Normal LV size and wall thickness. Overall systolic function is mildly reduced. LVEF is 45-50%. GDM T as tolerated when able Code Status: Full code DVT prophylaxis: None in view of active GI bleed and possible HIT Analgesia/sedation: None Line/tube: PIV GI prophylaxis: Protonix Prognosis: Guarded Disposition: Continue medical management, PT Eval and DC plan with possible placement management Resident attestation: Patient was seen and examined with attending , Dr. Rachel SOLORZANO MD Internal Medicine Resident, PGY2 [facility] Addendum had rapid response for sob, afib with rvr; cxr with poss infiltrates; check lactic ac, bnp; received lasix, cardizem iv DIC poss with sepsis ? Date of Service: Jun 15, 2024 Billing Provider: TALI FARLEY MD Common Visit Codes: [id number] INP/OBS CARE(HIGH) JOHN SOLORZANO, RES Jun 15, 2024 15:48 TALI FARLEY MD Jun 15, 2024 20:18
[2024-06-15 16:41] LABS: ABG BASE EXCESS -5.3 mmol/L (-2.0-3.0); ABG HCO3 17.7 mmol/L (21.0-28.0); ABG OXYGEN SATURATION 72.7 % (94.0-98.0); ABG PCO2 (T) 26.1 mmHg (35.0-48.0); ABG PH (T) 7.447 (7.350-7.450); ABG PO2 (T) 36.3 mmHg (83.0-108.0); ALLEN'S TEST POSITIVE; FCOHb 0.8 % (0.5-1.5); FMetHb 0.3 % (0.0-1.5); FO2Hb 71.9 % (94.0-98.0); MODE NC; PATIENT TEMPERATURE 36.4; TOTAL HEMOGLOBIN 10.5 G/dl (13.5-17.5)
[2024-06-15] MEDS: furosemide 40mg/4ml inj IV ONE (16:43)
[2024-06-15] MEDS ORDERED: amiodarone/D5 360MG/200ML BAG 200 ML IV SCH (16:45)
[2024-06-15] MEDS: amiodarone 150mg/dext, iso-os 100 ML IV ONE (16:49)
--- NOTE | 2024-06-15 16:56 | RADIOLOGY REPORT ---
CHEST RADIOGRAPH Indication: SOB Technique: Single frontal view of the chest was obtained Comparison: DI CHEST,SINGLE VIEW on DOS: 06/13/24, DI CHEST,SINGLE VIEW on DOS: 06/12/24, DI CHEST,SINGLE VIEW on DOS: 06/11/24 CT examination of April 16, 2024 FINDINGS: Prior CT examination patient had upper lobe centrilobular emphysema and bilateral developin g honeycombing in the lung bases. The current study there is bilateral interstitial prominence more o n the right than the left suggesting interstitial infiltrates or severe acute interstitial lung disea se. Follow-up CT examination of the chest is suggested. Patient has bilateral glenohumeral joint replacements there is a central venous line with tip in the superior vena cava IMPRESSION: 1. Acute on chronic lung disease. Follow-up CT examination of the chest is suggested
[2024-06-15] MEDS: diltiazem 5mg/ml 5ml inj. IV ONE (17:04)
[2024-06-15 17:21] LABS: MAGNESIUM 1.2 MG/DL (1.5-2.4)
[2024-06-15] MEDS: morphine 2 MG/ML inj. syringe IV ONE (17:21)
[2024-06-15] MEDS: magnesium sulf-water 4G/100mL 100 ML IV PRN (17:37)
[2024-06-15 17:45] LABS: ABG BASE EXCESS -5.8 mmol/L (-2.0-3.0); ABG HCO3 16.5 mmol/L (21.0-28.0); ABG OXYGEN SATURATION 89.6 % (94.0-98.0); ABG PCO2 (T) 22.8 mmHg (35.0-48.0); ABG PH (T) 7.476 (7.350-7.450); ABG PO2 (T) 51.8 mmHg (83.0-108.0); ALLEN'S TEST POSITIVE; FCOHb 0.7 % (0.5-1.5); FHHb 10.3 % (0.0-5.0); FMetHb 0.3 % (0.0-1.5); FO2Hb 88.7 % (94.0-98.0); MODE MASK - BIPAP; PATIENT TEMPERATURE 36.4; TOTAL HEMOGLOBIN 10.4 G/dl (13.5-17.5)
[2024-06-15 18:46] LABS: HEMATOCRIT 30.1 % (42.0-52.0); HEMOGLOBIN 9.9 g/dl (14.0-17.9); MEAN CORPUSCULAR HEMOGLOBIN 30.2 PG (27.0-31.0); MEAN CORPUSCULAR HGB CONC 32.9 g/dL (33.0-36.5); MEAN CORPUSCULAR VOLUME 91.9 FL (78-98); MEAN PLATELET VOLUME 8.8 FL (7.4-10.4); PLATELET COUNT 121 X10'3 (140-440); RED BLOOD COUNT 3.28 X10'6 (4.70-6.10); RED CELL DISTRIBUTION WIDTH 19.6 % (11.5-14.5); WHITE BLOOD COUNT 7.4 X10'3 (4.5-11.0)
[2024-06-15] MEDS: potassium Cl 40MEQ/1/2NS 520ml 520 ML IV PRN (19:08)
[2024-06-15] MEDS: pantoprazole 40mg Tablet.DR PO SCH (19:28)
[2024-06-15] MEDS: diltiazem 30mg tablet PO SCH (19:29)
[2024-06-16] VITALS (17 sets, daily range): BP systolic 108–180; BP diastolic 51–90; PULSE 63–122; RESP 14–30; TEMP 96.9–97.8; O2SAT 83–100
[2024-06-16 02:01] LABS: HEMATOCRIT 24.3 % (42.0-52.0); HEMOGLOBIN 8.2 g/dl (14.0-17.9); MEAN CORPUSCULAR HEMOGLOBIN 30.3 PG (27.0-31.0); MEAN CORPUSCULAR HGB CONC 33.9 g/dL (33.0-36.5); MEAN CORPUSCULAR VOLUME 89.5 FL (78-98); MEAN PLATELET VOLUME 8.9 FL (7.4-10.4); PLATELET COUNT 90 X10'3 (140-440); RED BLOOD COUNT 2.71 X10'6 (4.70-6.10); WHITE BLOOD COUNT 10.3 X10'3 (4.5-11.0)
[2024-06-16 02:21] LABS: ALANINE AMINOTRANSFERASE 32 U/L (12-78); ALBUMIN 1.7 G/DL (3.4-5.0); ALBUMIN/GLOBULIN RATIO 0.6 (1.1-1.5); ALKALINE PHOSPHATASE 56 IU/L (46-116); ANION GAP 10 (8-16); ASPARTATE AMINO TRANSFERASE 36 U/L (10-37); BILIRUBIN,TOTAL 0.3 MG/DL (0.1-1.0); BLOOD UREA NITROGEN 20 MG/DL (7-18); BUN/CREATININE RATIO 15.9 (10.0-20.0); CALCIUM 7.5 MG/DL (8.5-10.1); CHLORIDE 106 MMOL/L (99-107); CREATININE 1.26 MG/DL (0.60-1.10); GLUCOSE 128 MG/DL (70-104); MAGNESIUM 2.3 MG/DL (1.5-2.4); POTASSIUM 4.6 MMOL/L (3.5-5.1); SODIUM 136 MMOL/L (135-145); TOTAL CARBON DIOXIDE 20.4 MMOL/L (24-32); TOTAL PROTEIN 4.5 G/DL (6.4-8.2); VANCOMYCIN,RANDOM 17.6 ug/mL (20.0-30.0); eCRCL 35 ML/MIN; eGFR 55 ML/MIN
[2024-06-16] MEDS: acetaminophen 325mg tablet PO PRN (04:01)
[2024-06-16] MEDS: diltiazem 30mg tablet PO SCH (06:25)
[2024-06-16] MEDS: dextrose 50%-water 50ml dispensing syringe IV ONE (07:39)
[2024-06-16] MEDS: furosemide 40mg/4ml inj IV SCH (07:40)
[2024-06-16] MEDS ORDERED: vancomycin/NS 1 GM ADD-VANTAGE 250 ML IV SCH (09:00)
[2024-06-16] MEDS: VANCOMYCIN 750MG IV in NS 250 ML IV SCH (10:14)
[2024-06-16 12:54] LABS: HEMOGLOBIN 7.1 g/dl (14.0-17.9); MEAN CORPUSCULAR HEMOGLOBIN 29.4 PG (27.0-31.0); MEAN CORPUSCULAR HGB CONC 32.9 g/dL (33.0-36.5); MEAN CORPUSCULAR VOLUME 89.5 FL (78-98); MEAN PLATELET VOLUME 8.9 FL (7.4-10.4); PLATELET COUNT 98 X10'3 (140-440); RED BLOOD COUNT 2.42 X10'6 (4.70-6.10); RED CELL DISTRIBUTION WIDTH 19.4 % (11.5-14.5); WHITE BLOOD COUNT 13.3 X10'3 (4.5-11.0)
[2024-06-16 13:04] LABS: HEMATOCRIT 21.7 % (42.0-52.0)
[2024-06-16 14:57] LABS: HEMOGLOBIN 7.2 g/dl (14.0-17.9); MEAN CORPUSCULAR HEMOGLOBIN 29.4 PG (27.0-31.0); MEAN CORPUSCULAR HGB CONC 32.8 g/dL (33.0-36.5); MEAN CORPUSCULAR VOLUME 89.4 FL (78-98); MEAN PLATELET VOLUME 9.2 FL (7.4-10.4); PLATELET COUNT 101 X10'3 (140-440); RED BLOOD COUNT 2.45 X10'6 (4.70-6.10); RED CELL DISTRIBUTION WIDTH 19.6 % (11.5-14.5); WHITE BLOOD COUNT 12.4 X10'3 (4.5-11.0)
[2024-06-16 15:03] LABS: HEMATOCRIT 21.9 % (42.0-52.0)
[2024-06-16 15:25] LABS: OCCULT BLOOD STOOL NEGATIVE (Neg)
--- NOTE | 2024-06-16 16:48 | PROGRESS NOTE- Residence ---
Progress Note - Resident Providers to CC Resident Creating Document: JOHN SOLORZANO, RES ~ Vega-Non Protocol Vega Indications Met/Not Met: F/C Indications Met Antibiotic Timeout Antibiotic Ordered?: Yes Subjective Pt is showing improvement on Bipap therapy and his lungs sings are getting much better with stable vitals of stabilized HR and Oxygens Sat. Trialed with NC 3-6L to maintain his SPO2 around 90%. He was having the LBM and nurse reported for the 3 times of LBM this morning. Pt and his stated that pt was having the LBM before he came in to the hospital and it stopped during hospitalization until this morning. He denies about any previous ABx exposures. Objective Vital Signs Date Time Temp Pulse Resp B/P (MAP) Pulse Ox O2 Delivery O2 Flow Rate FiO2 06/16/24 16:29 97.8 93 24 121/51 (74) 93 Nasal Cannula 6.0 06/16/24 10:58 70 Result Diagram: 06/16/24 1407 06/16/24 0129 Patient's vitals were stable at the moment with temp 96.9 F, VT 75/minute, RR 22/minute, BP 124/72 mm Hg, SpO2 91 % on 6 L nasal cannula supply. General: Well alert, well oriented, not confused, not agitated, not in acute distress, well cooperated during the physical. Wasted muscle and thin look appearance. HEENT: Conjunctive are pink, sclerae clear, no icterus, pupil is equal in both sides, reactive to light, no ear discharge, no pharyngeal erythema or an edema, mouth and lips are dry. Neck: Supple, no JVD, no lymphadenopathy and thyromegaly. 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[employer]: No focal neurological deficits, no motor and sensory weakness in all 4 extremities, could move all 4 extremities Musculoskeletal: No joint swelling, deformities, inflammations, and no scoliosis and back tenderness Skin: No active skin lesions and rashes Coagulation Studies Laboratory Tests Test 06/13/24 23:28 06/15/24 05:57 Prothrombin Time 18.2 SECONDS (9.0-12.0) H INR International Normalized Ratio 1.9 INR Activated Partial Thromboplast Time 39 SECONDS (22-32) H Fibrinogen 650 MG/DL (177-424) H D-Dimer 1.71 MG/L FEU (0-0.50) H DIC Profile Interpretation See dic report Coagulation Comments Assessment Assessment An 83-year-old male with history of GI bleed, perforated peptic ulcer status post repair 10 years ago, s/p segmental resection of ileum, orthopedic surgery presented to the ED with chief complaints of coffee-ground emesis and melanic stools for the past one and half days and acute onset of the sore throat with HOV, and discoloration of the tips of the extremities. Plan Plan # Diarrhea 06/16/24: nurse reported for up to 3 loose BM this morning and pt has a hx of LBM before he came in. -F/up w/ stool study and C diff toxin and AB tests with the higher risk factors of age 83, exposed to broad-spectrum antibiotics, and pt is on Pantoprazole high dose daily. -ABx downgraded to the Flagyl and Rocephin only today. -Pt did not complain for the abd pain. -possible G(-)ve GI infections triggered DIC # A fib w/ RVR on no anticoag- [id number] score three # Acute hypoxic resp failure From the Pulmonary edema 06/16/24: Maintain CVR around 90s on PO Cardizem 30 mg q.6 hours with stable BP :Trailed with Weaning off Bipap and currently on the NC 6L maintaining SpO2 93% -pt's coag profile is prolonged with downtrending thrombocytopenia, holding the starting of Anticoag for his AFib with the risk of bleeding is higher than the anticoag effects for thromboembolism on Afib at that moment. 06/15/24: Given one time dose of IV Lasix 40 mg -put the patient on BiPAP therapy after ABG check, recheck ABG again -heart rate was around 150 with blood pressure around 130/80 mm Hg -given one time dose of amiodarone loading dose 150 mg followed by IV push Cardizem 50 mg (0.25 milligram/kg) and followed by p.o. Cardizem 30 mg q.6 hours -monitor vitals and a urine output -we will consult the patient for requirement of anticoagulation with the benefits and risks of anticoagulation therapy. 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 -applied aspiration precautions 06/15/24: Rav[place] thick and puree diet, no difficulty and chocking on swallowing -HOV is still persistent and sore throat as well. -2D echo on 06/12/2024 showed LVEF 65-70%, mitral trace regurgitation with n ormal size left atrium and normal pericardium and no effusion. -CT neck W/O IV contrast on 06/13/2024 showed IMPRESSION: Exam is limited secondary to lack of intravenous contrast. There is also significant streak artifact in the lower neck secondary to the bilateral shoulder arthroplasties. Within this limitation: 1. Frothy opacity in the hypopharynx. No evidence of radiopaque foreign bodies or obvious mass lesions. 2. Heavy atherosclerosis of the asirj-dgallvu-yuef-left carotid bulbs. 3. Emphysematous changes of the lung apices. -repeated CT neck and soft tissue W/IV contrast on 06/14/2024 showed Findings: The nasopharynx, oropharynx, hypopharynx, esophagus, and larynx demonstrate normal patency and contour without evidence of a soft tissue mass at this time. Bilaterally, the parotid, submandibular, and sublingual glands are normal in their size, shape, and attenuation without evidence of calcification. The visualized oral tongue, tongue base, and floor of mouth regions demonstrate no obvious mass or abnormal enhancement. Evaluation of the lateral spaces of the neck demonstrates no obvious masses at this time or significant lymphadenopathy. The thyroid gland is normal in size, shape, and attenuation without evidence of calcification. After the administration of contrast, no focal areas of abnormal enhancement are demonstrated. Air between dentures and soft tissues. No wall enhancing soft tissue masses to suggest abscess. Impression: 1. Unremarkable contrast enhanced CT scan of the neck. 06/14/24:Has been having swallowing issues since a week prior to admission Had an episode of aspiration last night, currently NPO we will continue NPO for now Follow up with CT neck for any soft tissue infection/inflammation Follow up with ESR, repeat lactate Continue IV clindamycin q.6 H 06/14/2024: ESR is 75, lactic acid normalized. Ordered CT neck with IV contrast to rule out abscess. Follow up #Possible vascular disease , ruled out the vasculitis Vs PAD 06/16/24: possible thought of the microvascular thrombosis from the part of the possible DIC (Chronic) but pt showed the improvement of good blood supply to the peripheral and no more skin mottling. 06/15/24: Arterial ultrasound on 06/13/2024 showed IMPRESSION: 1. There is no evidence for peripheral vascular insufficiency in the right lower extremity. 2. There is no evidence for peripheral vascular insufficiency in the left lower extremity. 3. No significant focal stenosis is identified. 4. Limited visualization of the posterior tibial artery bilaterally due to small size. ALEXX Ext on 06/13/24 showed IMPRESSION: 1. Normal on the right. 2. Borderline on the left. Arterial ultrasound Doppler on 06/14/2024 showed IMPRESSION: Atherosclerotic disease. No sonographic evidence for hemodynamically significant stenosis involving the bilateral subclavian/ axillary/ brachial / radial / ulnar arteries. Bilateral palmar arches inadequately assessed. Correlate clinically. -NO need to proceed w/ CTA abd aorta and Upper extremeties after undergone multiple imaging to rule out the ischemic causes and pt showed the improvement this morning. 06/14/24:He has a history of smoking, his fingertips and toes are cyanotic in appearance and cold to touch We will get vascular studies, follow up with results 06/14/2024: ESR is high. Ordered CTA bilateral upper extremities and CTA of the abdominal aorta with runoff for tomorrow. Follow up #Possible Upper GI bleed #History of severe reflux esophagitis and upper GI bleed in the past # normochromic normocytic anemia - downtrending anemia #Septic shock -improving, unknown source of origin #Leukocytosis with bandemia #Thrombocytopenia -2/2 from the oossible DIC component # Lactic acidosis- improved #Rhabdomyolysis secondary to above 06/16/24: Hemoglobin trending down to 7.2 which is confirmed, H and H q.6 hours -Type and cross matched done with O+ve and plan to transfuse if hb <7, stable vitals at that moment. -Switched PO Pantoprazole 40 mg BID to IV and cautious with risk of C diff -Elevated lactic acid could be from the G(-) ve/ sepsis induced DIC Vs Hypoxic episodes from the CHF exacerbation with the Pulm HTN -switch the antibiotics into metronidazole along with the ceftriaxone, discontinue clindamycin -F/up w/ FOBT for possible GI Re bleeding -F/up W/pathologist peripheral smear reading for the possible schistocytes in the smear with a concern of DIC 06/15/24: Today rechecked coag profile showed PT 18.2 and aPTT 39, which are prolonged with Fibrinogen 650 and elevated D dimer 1.71 which are indicating that the chronic reactive inflammation or infection status and normochromic normocytic anemia with hemoglobin 8 and platelet count downtrending to 89 wishes most probably due to consumptive anemia and thrombocytopenia from possible upper GI bleeding Vs sepsis. -He is recovering from the possible sepsis POA with the unknown source of origin mostly from the upper GI bleeding and esophagitis Hx. Normalized Lactic acid. -F/up w/ H&H Q6Hrs to trend his Hb for the possible PRBC transfusion with the symptomatic hemoglobin less than seven, monitor bloody bowel movement 06/14/24:H&H on admission 13.2, 40.9 Elevated BUN and creatinine 108, 4.02 likely secondary to severe GI bleed Continues to have melanotic stools Received Protonix 80 IV x1 Continue IV Protonix Has a history of iron-deficiency anemia, per labs from May 05 low iron and ferritin Monitor H&H q.6 hours and transfuse for hemoglobin less than seven GI Dr Keita has been consulted, appreciate recommendations 06/12/2024: Continuing IV fluid resuscitation, Lactic acid downtrending No GI intervention at this time, we will continue to monitor H&H 06/13/2024: H and H today 8.6, 25.5 Changed IV fluids to D5 half-normal saline at 100 mL/hour Continue IV Protonix b.i.d. 06/14/2024: Patient had blood sugar of 59 in the evening. D50 IV push given. Recheck in 1 hour. Continue IV fluids D5 half NS and Protonix On empiric vanc and Zosyn IV fluid bolus and fluid resuscitation Follow up with cultures 06/12/2024: Continue IV antibiotics 06/13/2024 Cultures NGTD DC vanc and Zosyn Started clindamycin IV q.6 H 06/14/2024: Consider TPN if the patient fails swallow evaluation tomorrow. CT neck with IV contrast is negative for any abscess. #Elevated troponins #Type 2 MD likely secondary to demand ischemia 06/16/24: No CP complaint today 06/15/24: NO more trending Trop and No EKG changes with no active typical angina at that moment. plan to recheck the EKG once pt is symptomatic from the possible Symptomatic anemia etc 06/14/24:Patient does not have any chest pain, no ischemic changes noted on EKG Troponins downtrending #Acute kidney injury likely secondary to renal tubular stasis Vs ATN from Sepsis #Trending down Transaminitis from the possible ischemic Liver injury from sepsis 06/16/24: Creatinine going up to 1.26 and BUN 20 on IV Lasix therapy, held with the IV fluids for the reason of pulmonary edema, monitor urine output and daily renal function tests, gentle diuresis -Normalized LFT 06/15/24: Cr 0.82 and trending down with the improvement on the Fluid replacement. LFTs are normalizing now 06/14/24:Creatinine 4.02, baseline creatinine 0.7-0.9 Kidney injury could be secondary to severe GI bleed Continue IV fluid resuscitation Monitor BMP 06/13/2024: Creatinine downtrending, continue IVF 06/14/2024: SUSAN resolved #History of Substance abuse (Methamphetamine induced cardiomyopathy) #CHF with moderately reduced ejection fraction per echo in April 2024 Echo: Normal LV size and wall thickness. Overall systolic function is mildly reduced. LVEF is 45-50%. GDM T as tolerated when able Code Status: Full code DVT prophylaxis: None in view of active GI bleed and possible HIT Analgesia/sedation: None Line/tube: PIV GI prophylaxis: IV Protonix Prognosis: Guarded Disposition: Continue H&H monitor for the PRBC transfusion, f/up w/ pathologist peripheral smear for schistocytes, Cont IV Protonix, monitor oxygen sat and titrate the requirement, MOnitor BM and f/up w/ stool study and C diff test, cont medical management, PT Eval and DC plan with possible placement management. Resident attestation: Patient was seen and examined with attending MD, Dr. Rachel SOLORZANO MD Internal Medicine Resident, PGY2 [facility] Addendum high suspicion for DIC, awaiting eval by pathologist for schistocytes; initial manifestation with likely microthrombi, going now into bleeding? will monitor for signs of hemolysis Date of Service: Jun 16, 2024 Billing Provider: TALI FARLEY MD Common Visit Codes: [id number] INP/OBS CARE(HIGH) JOHN SOLORZANO, RES Jun 16, 2024 16:48 TALI FARLEY MD Jun 16, 2024 20:22
[2024-06-16] MEDS: lactose-reduced food (Ensure Enlive) - 237ml bottle PO SCH (18:01)
[2024-06-16] MEDS: metroNIDAZOLE-Flagyl 500mg/NS 100 ML IV SCH (19:46)
[2024-06-16] MEDS: pantoprazole 40 MG vial IV SCH (19:46)
[2024-06-17] VITALS (14 sets, daily range): BP systolic 107–140; BP diastolic 64–85; PULSE 63–119; RESP 16–30; TEMP 97.2–98.6; O2SAT 83–98
[2024-06-17 01:24] LABS: HEMATOCRIT 22.9 % (42.0-52.0); HEMOGLOBIN 7.6 g/dl (14.0-17.9); MEAN CORPUSCULAR HEMOGLOBIN 29.3 PG (27.0-31.0); MEAN CORPUSCULAR HGB CONC 33.3 g/dL (33.0-36.5); MEAN CORPUSCULAR VOLUME 88.1 FL (78-98); MEAN PLATELET VOLUME 9.4 FL (7.4-10.4); PLATELET COUNT 118 X10'3 (140-440); RED BLOOD COUNT 2.59 X10'6 (4.70-6.10); RED CELL DISTRIBUTION WIDTH 19.6 % (11.5-14.5); WHITE BLOOD COUNT 12.5 X10'3 (4.5-11.0)
[2024-06-17 06:48] LABS: HEMOGLOBIN 7.2 g/dl (14.0-17.9); MEAN CORPUSCULAR HEMOGLOBIN 29.8 PG (27.0-31.0); MEAN CORPUSCULAR HGB CONC 33.8 g/dL (33.0-36.5); MEAN PLATELET VOLUME 9.2 FL (7.4-10.4); PLATELET COUNT 112 X10'3 (140-440); RED CELL DISTRIBUTION WIDTH 19.5 % (11.5-14.5); WHITE BLOOD COUNT 10.7 X10'3 (4.5-11.0)
[2024-06-17 07:18] LABS: HEMATOCRIT 21.2 % (42.0-52.0)
[2024-06-17 07:36] LABS: ALANINE AMINOTRANSFERASE 28 U/L (12-78); ALBUMIN 1.9 G/DL (3.4-5.0); ALBUMIN/GLOBULIN RATIO 0.7 (1.1-1.5); ALKALINE PHOSPHATASE 75 IU/L (46-116); ANION GAP 13 (8-16); ASPARTATE AMINO TRANSFERASE 29 U/L (10-37); BILIRUBIN,TOTAL 0.4 MG/DL (0.1-1.0); BLOOD UREA NITROGEN 24 MG/DL (7-18); BUN/CREATININE RATIO 21.4 (10.0-20.0); CALCIUM 7.3 MG/DL (8.5-10.1); CHLORIDE 106 MMOL/L (99-107); CREATININE 1.12 MG/DL (0.60-1.10); GLUCOSE 106 MG/DL (70-104); MAGNESIUM 1.9 MG/DL (1.5-2.4); POTASSIUM 3.3 MMOL/L (3.5-5.1); SODIUM 142 MMOL/L (135-145); TOTAL CARBON DIOXIDE 23.5 MMOL/L (24-32); TOTAL PROTEIN 4.6 G/DL (6.4-8.2); eCRCL 40 ML/MIN; eGFR 63 ML/MIN
[2024-06-17 13:51] LABS: HEMATOCRIT 28.8 % (42.0-52.0); HEMOGLOBIN 9.7 g/dl (14.0-17.9); MEAN CORPUSCULAR HEMOGLOBIN 29.6 PG (27.0-31.0); MEAN CORPUSCULAR HGB CONC 33.7 g/dL (33.0-36.5); MEAN CORPUSCULAR VOLUME 87.8 FL (78-98); MEAN PLATELET VOLUME 9.4 FL (7.4-10.4); PLATELET COUNT 120 X10'3 (140-440); RED BLOOD COUNT 3.28 X10'6 (4.70-6.10); RED CELL DISTRIBUTION WIDTH 20.1 % (11.5-14.5); WHITE BLOOD COUNT 13.6 X10'3 (4.5-11.0)
[2024-06-17 18:57] LABS: HEMATOCRIT 23.9 % (42.0-52.0); MEAN CORPUSCULAR HEMOGLOBIN 29.6 PG (27.0-31.0); MEAN CORPUSCULAR HGB CONC 33.5 g/dL (33.0-36.5); MEAN CORPUSCULAR VOLUME 88.3 FL (78-98); MEAN PLATELET VOLUME 9.4 FL (7.4-10.4); PLATELET COUNT 142 X10'3 (140-440); RED BLOOD COUNT 2.71 X10'6 (4.70-6.10); RED CELL DISTRIBUTION WIDTH 19.5 % (11.5-14.5); WHITE BLOOD COUNT 11.2 X10'3 (4.5-11.0)
[2024-06-17 19:18] LABS: PROTEIN S, TOTAL 48 % (60-150)
--- NOTE | 2024-06-17 19:30 | PROGRESS NOTE- Residence ---
Progress Note - Resident Providers to CC Resident Creating Document: JOHN SOLORZANO RES ~ Antibiotic Timeout Antibiotic Ordered?: Yes Subjective Patient is showing much improvement today, he is eating well and articulation well without having any HOV, his son was at the bedside this morning. Objective Vital Signs Date Time Temp Pulse Resp B/P (MAP) Pulse Ox O2 Delivery O2 Flow Rate FiO2 06/17/24 07:48 108 21 90 Nasal Cannula* 5 40 06/17/24 02:00 98.1 140/85 (103) Result Diagram: 06/17/24 1830 06/17/24 0600 Patient's vitals were stable at the moment with temp 96.9 F, NM 75/minute, RR 22/minute, BP 124/72 mm Hg, SpO2 91 % on 5 L nasal cannula supply. General: Well alert, well oriented, not confused, not agitated, not in acute distress, well cooperated during the physical. Wasted muscle and thin look appearance. HEENT: Conjunctive are pink, sclerae clear, no icterus, pupil is equal in both sides, reactive to light, no ear discharge, no pharyngeal erythema or an edema, mouth and lips are dry. Neck: Supple, no JVD, no lymphadenopathy and thyromegaly. 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: No focal neurological deficits, no motor and sensory weakness in all 4 extremities, could move all 4 extremities Musculoskeletal: No joint swelling, deformities, inflammations, and no scoliosis and back tenderness Skin: No active skin lesions and rashes Coagulation Studies Laboratory Tests Test 06/13/24 23:28 06/15/24 05:57 Functional Protein C 57 % (73-180) L Free Protein S 32 % (61-136) L Total Protein S 48 % (60-150) L Prothrombin Time 18.2 SECONDS (9.0-12.0) H INR International Normalized Ratio 1.9 INR Activated Partial Thromboplast Time 39 SECONDS (22-32) H Fibrinogen 650 MG/DL (177-424) H D-Dimer 1.71 MG/L FEU (0-0.50) H DIC Profile Interpretation See dic report Coagulation Comments Assessment Assessment An 83-year-old male with history of GI bleed, perforated peptic ulcer status post repair 10 years ago, s/p segmental resection of ileum, orthopedic surgery presented to the ED with chief complaints of coffee-ground emesis and melanic stools for the past one and half days and acute onset of the sore throat with HOV, and discoloration of the tips of the extremities. Plan Plan # Diarrhea 06/17/2024: Follow up with the C difficile toxin antibody and antigen. He has a bowel movement this morning and more than 3 times yesterday. -FOBT negative. 06/16/24: nurse reported for up to 3 loose BM this morning and pt has a hx of LBM before he came in. -F/up w/ stool study and C diff toxin and AB tests with the higher risk factors of age 83, exposed to broad-spectrum antibiotics, and pt is on Pantoprazole high dose daily. -ABx downgraded to the Flagyl and Rocephin only today. -Pt did not complain for the abd pain. -possible G(-)ve GI infections triggered DIC # A fib w/ RVR on no anticoag- [id number] score three # Acute hypoxic resp failure From the Pulmonary edema 06/17/2024: Maintaining CVR around 80s, continue p.o. Cardizem 30 mg q.6 hours and monitor blood pressure -good oxygenation with 93 presentation 5 L nasal cannula oxygen supply 06/16/24: Maintain CVR around 90s on PO Cardizem 30 mg q.6 hours with stable BP :Trailed with Weaning off Bipap and currently on the NC 6L maintaining SpO2 93% -pt's coag profile is prolonged with downtrending thrombocytopenia, holding the starting of Anticoag for his AFib with the risk of bleeding is higher than the anticoag effects for thromboembolism on Afib at that moment. 06/15/24: Given one time dose of IV Lasix 40 mg -put the patient on BiPAP therapy after ABG check, recheck ABG again -heart rate was around 150 with blood pressure around 130/80 mm Hg -given one time dose of amiodarone loading dose 150 mg followed by IV push Cardizem 50 mg (0.25 milligram/kg) and followed by p.o. Cardizem 30 mg q.6 hours -monitor vitals and a urine output -we will consult the patient for requirement of anticoagulation with the benefits and risks of anticoagulation therapy. 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 -applied aspiration precautions 06/15/24: [place] thick and puree diet, no difficulty and chocking on swallowing -HOV is still persistent and sore throat as well. -2D echo on 06/12/2024 showed LVEF 65-70%, mitral trace regurgitation with n ormal size left atrium and normal pericardium and no effusion. -CT neck W/O IV contrast on 06/13/2024 showed IMPRESSION: Exam is limited secondary to lack of intravenous contrast. There is also significant streak artifact in the lower neck secondary to the bilateral shoulder arthroplasties. Within this limitation: 1. Frothy opacity in the hypopharynx. No evidence of radiopaque foreign bodies or obvious mass lesions. 2. Heavy atherosclerosis of the lauvt-vdseyys-mvoa-left carotid bulbs. 3. Emphysematous changes of the lung apices. -repeated CT neck and soft tissue W/IV contrast on 06/14/2024 showed Findings: The nasopharynx, oropharynx, hypopharynx, esophagus, and larynx demonstrate normal patency and contour without evidence of a soft tissue mass at this time. Bilaterally, the parotid, submandibular, and sublingual glands are normal in their size, shape, and attenuation without evidence of calcification. The visualized oral tongue, tongue base, and floor of mouth regions demonstrate no obvious mass or abnormal enhancement. Evaluation of the lateral spaces of the neck demonstrates no obvious masses at this time or significant lymphadenopathy. The thyroid gland is normal in size, shape, and attenuation without evidence of calcification. After the administration of contrast, no focal areas of abnormal enhancement are demonstrated. Air between dentures and soft tissues. No wall enhancing soft tissue masses to suggest abscess. Impression: 1. Unremarkable contrast enhanced CT scan of the neck. 06/14/24:Has been having swallowing issues since a week prior to admission Had an episode of aspiration last night, currently NPO we will continue NPO for now Follow up with CT neck for any soft tissue infection/inflammation Follow up with ESR, repeat lactate Continue IV clindamycin q.6 H 06/14/2024: ESR is 75, lactic acid normalized. Ordered CT neck with IV contrast to rule out abscess. Follow up #Possible vascular disease , ruled out the vasculitis Vs PAD 06/16/24: possible thought of the microvascular thrombosis from the part of the possible DIC (Chronic) but pt showed the improvement of good blood supply to the peripheral and no more skin mottling. 06/15/24: Arterial ultrasound on 06/13/2024 showed IMPRESSION: 1. There is no evidence for peripheral vascular insufficiency in the right lower extremity. 2. There is no evidence for peripheral vascular insufficiency in the left lower extremity. 3. No significant focal stenosis is identified. 4. Limited visualization of the posterior tibial artery bilaterally due to small size. ALEXX Ext on 06/13/24 showed IMPRESSION: 1. Normal on the right. 2. Borderline on the left. Arterial ultrasound Doppler on 06/14/2024 showed IMPRESSION: Atherosclerotic disease. No sonographic evidence for hemodynamically significant stenosis involving the bilateral subclavian/ axillary/ brachial / radial / ulnar arteries. Bilateral palmar arches inadequately assessed. Correlate clinically. -NO need to proceed w/ CTA abd aorta and Upper extremeties after undergone multiple imaging to rule out the ischemic causes and pt showed the improvement this morning. 06/14/24:He has a history of smoking, his fingertips and toes are cyanotic in appearance and cold to touch We will get vascular studies, follow up with results 06/14/2024: ESR is high. Ordered CTA bilateral upper extremities and CTA of the abdominal aorta with runoff for tomorrow. Follow up #Possible Upper GI bleed #History of severe reflux esophagitis and upper GI bleed in the past # normochromic normocytic anemia - downtrending anemia #Septic shock -improving, unknown source of origin #Leukocytosis with bandemia #Thrombocytopenia -2/2 from the oossible DIC component # Lactic acidosis- improved #Rhabdomyolysis secondary to above 06/17/2024: FOBT negative, trending H and H, hemoglobin stabilizing around eight and prepared for possible blood transfusion if hemoglobin dropped down below seven -requested to pathologist to take a look again to previous smear for looking up the helmet cells manually today again since the peripheral smear does not mentioned about the helmet cells in the report. 06/16/24: Hemoglobin trending down to 7.2 which is confirmed, H and H q.6 hours -Type and cross matched done with O+ve and plan to transfuse if hb <7, stable vitals at that moment. -Switched PO Pantoprazole 40 mg BID to IV and cautious with risk of C diff -Elevated lactic acid could be from the G(-) ve/ sepsis induced DIC Vs Hypoxic episodes from the CHF exacerbation with the Pulm HTN -switch the antibiotics into metronidazole along with the ceftriaxone, discontinue clindamycin -F/up w/ FOBT for possible GI Re bleeding -F/up W/pathologist peripheral smear reading for the possible schistocytes in the smear with a concern of DIC 06/15/24: Today rechecked coag profile showed PT 18.2 and aPTT 39, which are prolonged with Fibrinogen 650 and elevated D dimer 1.71 which are indicating that the chronic reactive inflammation or infection status and normochromic normocytic anemia with hemoglobin 8 and platelet count downtrending to 89 wishes most probably due to consumptive anemia and thrombocytopenia from possible upper GI bleeding Vs sepsis. -He is recovering from the possible sepsis POA with the unknown source of origin mostly from the upper GI bleeding and esophagitis Hx. Normalized Lactic acid. -F/up w/ H&H Q6Hrs to trend his Hb for the possible PRBC transfusion with the symptomatic hemoglobin less than seven, monitor bloody bowel movement 06/14/24:H&H on admission 13.2, 40.9 Elevated BUN and creatinine 108, 4.02 likely secondary to severe GI bleed Continues to have melanotic stools Received Protonix 80 IV x1 Continue IV Protonix Has a history of iron-deficiency anemia, per labs from May 05 low iron and ferritin Monitor H&H q.6 hours and transfuse for hemoglobin less than seven GI Dr Keita has been consulted, appreciate recommendations 06/12/2024: Continuing IV fluid resuscitation, Lactic acid downtrending No GI intervention at this time, we will continue to monitor H&H 06/13/2024: H and H today 8.6, 25.5 Changed IV fluids to D5 half-normal saline at 100 mL/hour Continue IV Protonix b.i.d. 06/14/2024: Patient had blood sugar of 59 in the evening. D50 IV push given. Recheck in 1 hour. Continue IV fluids D5 half NS and Protonix On empiric vanc and Zosyn IV fluid bolus and fluid resuscitation Follow up with cultures 06/12/2024: Continue IV antibiotics 06/13/2024 Cultures NGTD DC vanc and Zosyn Started clindamycin IV q.6 H 06/14/2024: Consider TPN if the patient fails swallow evaluation tomorrow. CT neck with IV contrast is negative for any abscess. # Elevated troponins #Type 2 OH likely secondary to demand ischemia 06/17/2024: No complaint of chest pain at the moment 06/16/24: No CP complaint today 06/15/24: NO more trending Trop and No EKG changes with no active typical angina at that moment. plan to recheck the EKG once pt is symptomatic from the possible Symptomatic anemia etc 06/14/24:Patient does not have any chest pain, no ischemic changes noted on EKG Troponins downtrending #Acute kidney injury likely secondary to renal tubular stasis Vs ATN from Sepsis #Trending down Transaminitis from the possible ischemic Liver injury from sepsis 06/17/2024: Creatinine 1.12 and a BUN 24, showed a little bit better than yesterday encourage oral intake and monitor I's and O's 06/16/24: Creatinine going up to 1.26 and BUN 20 on IV Lasix therapy, held with the IV fluids for the reason of pulmonary edema, monitor urine output and daily renal function tests, gentle diuresis -Normalized LFT 06/15/24: Cr 0.82 and trending down with the improvement on the Fluid replacement. LFTs are normalizing now 06/14/24:Creatinine 4.02, baseline creatinine 0.7-0.9 Kidney injury could be secondary to severe GI bleed Continue IV fluid resuscitation Monitor BMP 06/13/2024: Creatinine downtrending, continue IVF 06/14/2024: SUSAN resolved #History of Substance abuse (Methamphetamine induced cardiomyopathy) #CHF with moderately reduced ejection fraction per echo in April 2024 Echo: Normal LV size and wall thickness. Overall systolic function is mildly reduced. LVEF is 45-50%. GDM T as tolerated when able Code Status: Full code DVT prophylaxis: None in view of active GI bleed and possible HIT Analgesia/sedation: None Line/tube: PIV GI prophylaxis: IV Protonix Prognosis: Guarded Disposition: Continue H&H monitor for the PRBC transfusion, f/up w/ pathologist peripheral smear for schistocytes, Cont IV Protonix, monitor oxygen sat and titrate the requirement, MOnitor BM and f/up w/ stool study and C diff test, cont medical management, PT Eval and DC plan with possible placement management. Resident MD attestation: Patient was seen and examined with attending MD, Dr. Rachel SOLORZANO MD Internal Medicine Resident, PGY2 [facility] Date of Service: Jun 17, 2024 Billing Provider: TALI FARLEY MD Common Visit Codes: [id number] INP/OBS CARE(HIGH) JOHN SOLORZANO, RES Jun 17, 2024 19:30 TALI FARLEY MD Jun 17, 2024 20:58
[2024-06-18] VITALS (15 sets, daily range): BP systolic 81–130; BP diastolic 57–85; PULSE 62–118; RESP 19–29; TEMP 97.4–98.1; O2SAT 84–100
[2024-06-18 01:20] LABS: HEMATOCRIT 23.3 % (42.0-52.0); HEMOGLOBIN 7.9 g/dl (14.0-17.9); MEAN CORPUSCULAR HEMOGLOBIN 29.5 PG (27.0-31.0); MEAN CORPUSCULAR HGB CONC 33.8 g/dL (33.0-36.5); MEAN CORPUSCULAR VOLUME 87.3 FL (78-98); MEAN PLATELET VOLUME 9.3 FL (7.4-10.4); PLATELET COUNT 143 X10'3 (140-440); RED BLOOD COUNT 2.67 X10'6 (4.70-6.10); RED CELL DISTRIBUTION WIDTH 19.6 % (11.5-14.5); WHITE BLOOD COUNT 11.4 X10'3 (4.5-11.0)
[2024-06-18 01:27] LABS: MAGNESIUM 1.7 MG/DL (1.5-2.4); POTASSIUM 3.5 MMOL/L (3.5-5.1)
[2024-06-18 06:06] LABS: ANTITHROMBIN ACTIVITY 94 % (75-135); ANTITHROMBIN ANTIGEN 102 % (72-124)
--- NOTE | 2024-06-18 10:23 | PROGRESS NOTE- Residence ---
Progress Note - Resident Providers to CC Resident Creating Document: JOHN SOLORZANO RES ~ Antibiotic Timeout Antibiotic Ordered?: Yes Subjective He had a LBM around 6 times yesterday. and had one LBM this morning. Downgraded the IV lasix to 20, stopped colace for diarrhea, and stopped Ensure which could make the diarrhea. Switched IV to PO pantoprazole since his Hb is stabilized. Patient was very hypoxic and requiring 10 L of oxygen blood pressure borderline. ABG ordered and results reviewed and discussed with respiratory therapist Objective Vital Signs Date Time Temp Pulse Resp B/P (MAP) Pulse Ox O2 Delivery O2 Flow Rate FiO2 06/18/24 08:09 101 20 90 Nasal Cannula* 5 40 06/18/24 02:00 97.6 130/85 (100) Result Diagram: 06/18/24 0102 06/18/24 0020 Patient's vitals were stable at the moment with temp 96.9 F, SD 75/minute, RR 22/minute, BP 124/72 mm Hg, SpO2 91 % on 5 L nasal cannula supply. General: Well alert, well oriented, not confused, not agitated, not in acute distress, well cooperated during the physical. Wasted muscle and thin look appearance. HEENT: Conjunctive are pink, sclerae clear, no icterus, pupil is equal in both sides, reactive to light, no ear discharge, no pharyngeal erythema or an edema, mouth and lips are dry. Neck: Supple, no JVD, no lymphadenopathy and thyromegaly. Lungs: Equal air entry on both lungs with bronchial breath sounds, and bilateral basal crackles Heart: S1-S2 irregular rhythm and, regular rate, no gallops, no rubs, no murmurs Abdomen: No visible peristalsis, Bowel sounds present on auscultation, soft, nontender, no guarding, no rigidity Extremities: No obvious deformities, no pitting edema bilaterally, capillary refill intact, able to wiggle toes both sides, peripheral pulsations are intact on both sides REPAIR MANAGER: No focal neurological deficits, no motor and sensory weakness in all 4 extremities, could move all 4 extremities Musculoskeletal: No joint swelling, deformities, inflammations, and no scoliosis and back tenderness Skin: No active skin lesions and rashes Coagulation Studies Laboratory Tests Test 06/13/24 23:28 06/15/24 05:57 Functional Protein C 57 % (73-180) L Free Protein S 32 % (61-136) L Total Protein S 48 % (60-150) L Anti-Thrombin III Antigen 102 % (72-124) Anti-Thrombin III Activity 94 % (75-135) Prothrombin Time 18.2 SECONDS (9.0-12.0) H INR International Normalized Ratio 1.9 INR Activated Partial Thromboplast Time 39 SECONDS (22-32) H Fibrinogen 650 MG/DL (177-424) H D-Dimer 1.71 MG/L FEU (0-0.50) H DIC Profile Interpretation See dic report Coagulation Comments Assessment Assessment An 83-year-old male with history of GI bleed, perforated peptic ulcer status post repair 10 years ago, s/p segmental resection of ileum, orthopedic surgery presented to the ED with chief complaints of coffee-ground emesis and melanic stools for the past one and half days and acute onset of the sore throat with HOV, and discoloration of the tips of the extremities. Plan Plan # Diarrhea 06/18/2024: C difficile toxin antibody and antigen showed negative Patient loose bowel motion is getting better today. Hold Ensure and other medications can cause the diarrhea and resume Ensure tomorrow again with the LBM improvement. 06/17/2024: Follow up with the C difficile toxin antibody and antigen. He has a bowel movement this morning and more than 3 times yesterday. -FOBT negative. 06/16/24: nurse reported for up to 3 loose BM this morning and pt has a hx of LBM before he came in. -F/up w/ stool study and C diff toxin and AB tests with the higher risk factors of age 83, exposed to broad-spectrum antibiotics, and pt is on Pantoprazole high dose daily. -ABx downgraded to the Flagyl and Rocephin only today. -Pt did not complain for the abd pain. -possible G(-)ve GI infections triggered DIC # A fib w/ RVR on no anticoag- [id number] score three # Acute hypoxic resp failure From the Pulmonary edema 06/18/2024: Had atrial fibrillation attack this morning again but continue p.o. Cardizem 30 mg q.6 hours and continuous telemetry monitoring Repeated ABG done today showed now much different and within normal. Started IV Lasix 20 mg daily. 06/17/2024: Maintaining CVR around 80s, continue p.o. Cardizem 30 mg q.6 hours and monitor blood pressure -good oxygenation with 93 presentation 5 L nasal cannula oxygen supply 06/16/24: Maintain CVR around 90s on PO Cardizem 30 mg q.6 hours with stable BP :Trailed with Weaning off Bipap and currently on the NC 6L maintaining SpO2 93% -pt's coag profile is prolonged with downtrending thrombocytopenia, holding the starting of Anticoag for his AFib with the risk of bleeding is higher than the anticoag effects for thromboembolism on Afib at that moment. 06/15/24: Given one time dose of IV Lasix 40 mg -put the patient on BiPAP therapy after ABG check, recheck ABG again -heart rate was around 150 with blood pressure around 130/80 mm Hg -given one time dose of amiodarone loading dose 150 mg followed by IV push Cardizem 50 mg (0.25 milligram/kg) and followed by p.o. Cardizem 30 mg q.6 hours -monitor vitals and a urine output -we will consult the patient for requirement of anticoagulation with the benefits and risks of anticoagulation therapy. #Dysphagia, passed ST Eval, approved for the Puree and [place] thick diet 06/17/2024: He can eat more better than yesterday, HOV is getting better today 06/16/24: continue pureed diet and nectar thick -discussed the diet plan with the protein and Ridge ensure Clear for the patient with high calories together with the safe deposit clerk and appreciate for the consultation. -applied aspiration precautions 06/15/24: [place] thick and puree diet, no difficulty and chocking on swallowing -HOV is still persistent and sore throat as well. -2D echo on 06/12/2024 showed LVEF 65-70%, mitral trace regurgitation with n ormal size left atrium and normal pericardium and no effusion. -CT neck W/O IV contrast on 06/13/2024 showed IMPRESSION: Exam is limited secondary to lack of intravenous contrast. There is also significant streak artifact in the lower neck secondary to the bilateral shoulder arthroplasties. Within this limitation: 1. Frothy opacity in the hypopharynx. No evidence of radiopaque foreign bodies or obvious mass lesions. 2. Heavy atherosclerosis of the cwjrq-[id number]-mlio-left carotid bulbs. 3. Emphysematous changes of the lung apices. -repeated CT neck and soft tissue W/IV contrast on 06/14/2024 showed Findings: The nasopharynx, oropharynx, hypopharynx, esophagus, and larynx demonstrate normal patency and contour without evidence of a soft tissue mass at this time. Bilaterally, the parotid, submandibular, and sublingual glands are normal in their size, shape, and attenuation without evidence of calcification. The visualized oral tongue, tongue base, and floor of mouth regions demonstrate no obvious mass or abnormal enhancement. Evaluation of the lateral spaces of the neck demonstrates no obvious masses at this time or significant lymphadenopathy. The thyroid gland is normal in size, shape, and attenuation without evidence of calcification. After the administration of contrast, no focal areas of abnormal enhancement are demonstrated. Air between dentures and soft tissues. No wall enhancing soft tissue masses to suggest abscess. Impression: 1. Unremarkable contrast enhanced CT scan of the neck. 06/14/24:Has been having swallowing issues since a week prior to admission Had an episode of aspiration last night, currently NPO we will continue NPO for now Follow up with CT neck for any soft tissue infection/inflammation Follow up with ESR, repeat lactate Continue IV clindamycin q.6 H 06/14/2024: ESR is 75, lactic acid normalized. Ordered CT neck with IV contrast to rule out abscess. Follow up #Possible vascular disease , ruled out the vasculitis Vs PAD 06/16/24: possible thought of the microvascular thrombosis from the part of the possible DIC (Chronic) but pt showed the improvement of good blood supply to the peripheral and no more skin mottling. 06/15/24: Arterial ultrasound on 06/13/2024 showed IMPRESSION: 1. There is no evidence for peripheral vascular insufficiency in the right lower extremity. 2. There is no evidence for peripheral vascular insufficiency in the left lower extremity. 3. No significant focal stenosis is identified. 4. Limited visualization of the posterior tibial artery bilaterally due to small size. ALEXX Ext on 06/13/24 showed IMPRESSION: 1. Normal on the right. 2. Borderline on the left. Arterial ultrasound Doppler on 06/14/2024 showed IMPRESSION: Atherosclerotic disease. No sonographic evidence for hemodynamically significant stenosis involving the bilateral subclavian/ axillary/ brachial / radial / ulnar arteries. Bilateral palmar arches inadequately assessed. Correlate clinically. -NO need to proceed w/ CTA abd aorta and Upper extremeties after undergone multiple imaging to rule out the ischemic causes and pt showed the improvement this morning. 06/14/24:He has a history of smoking, his fingertips and toes are cyanotic in appearance and cold to touch We will get vascular studies, follow up with results 06/14/2024: ESR is high. Ordered CTA bilateral upper extremities and CTA of the abdominal aorta with runoff for tomorrow. Follow up #Possible Upper GI bleed #History of severe reflux esophagitis and upper GI bleed in the past # normochromic normocytic anemia - downtrending anemia #Septic shock -improving, unknown source of origin #Leukocytosis with bandemia #Thrombocytopenia -2/2 from the oossible DIC component # Lactic acidosis- improved #Rhabdomyolysis secondary to above 06/18/2024-and FOBT negative. hemoglobin 7.9 which is stabilized and now much different from the previous values, seems like there is no helmet cells in the peripheral smear as per pathologist 06/17/2024: FOBT negative, trending H and H, hemoglobin stabilizing around eight and prepared for possible blood transfusion if hemoglobin dropped down below seven -requested to pathologist to take a look again to previous smear for looking up the helmet cells manually today again since the peripheral smear does not mentioned about the helmet cells in the report. 06/16/24: Hemoglobin trending down to 7.2 which is confirmed, H and H q.6 hours -Type and cross matched done with O+ve and plan to transfuse if hb <7, stable vitals at that moment. -Switched PO Pantoprazole 40 mg BID to IV and cautious with risk of C diff -Elevated lactic acid could be from the G(-) ve/ sepsis induced DIC Vs Hypoxic episodes from the CHF exacerbation with the Pulm HTN -switch the antibiotics into metronidazole along with the ceftriaxone, discontinue clindamycin -F/up w/ FOBT for possible GI Re bleeding -F/up W/pathologist peripheral smear reading for the possible schistocytes in the smear with a concern of DIC 06/15/24: Today rechecked coag profile showed PT 18.2 and aPTT 39, which are prolonged with Fibrinogen 650 and elevated D dimer 1.71 which are indicating that the chronic reactive inflammation or infection status and normochromic normocytic anemia with hemoglobin 8 and platelet count downtrending to 89 wishes most probably due to consumptive anemia and thrombocytopenia from possible upper GI bleeding Vs sepsis. -He is recovering from the possible sepsis POA with the unknown source of origin mostly from the upper GI bleeding and esophagitis Hx. Normalized Lactic acid. -F/up w/ H&H Q6Hrs to trend his Hb for the possible PRBC transfusion with the symptomatic hemoglobin less than seven, monitor bloody bowel movement 06/14/24:H&H on admission 13.2, 40.9 Elevated BUN and creatinine 108, 4.02 likely secondary to severe GI bleed Continues to have melanotic stools Received Protonix 80 IV x1 Continue IV Protonix Has a history of iron-deficiency anemia, per labs from May 05 low iron and ferritin Monitor H&H q.6 hours and transfuse for hemoglobin less than seven GI Dr Keita has been consulted, appreciate recommendations 06/12/2024: Continuing IV fluid resuscitation, Lactic acid downtrending No GI intervention at this time, we will continue to monitor H&H 06/13/2024: H and H today 8.6, 25.5 Changed IV fluids to D5 half-normal saline at 100 mL/hour Continue IV Protonix b.i.d. 06/14/2024: Patient had blood sugar of 59 in the evening. D50 IV push given. Recheck in 1 hour. Continue IV fluids D5 half NS and Protonix On empiric vanc and Zosyn IV fluid bolus and fluid resuscitation Follow up with cultures 06/12/2024: Continue IV antibiotics 06/13/2024 Cultures NGTD DC vanc and Zosyn Started clindamycin IV q.6 H 06/14/2024: Consider TPN if the patient fails swallow evaluation tomorrow. CT neck with IV contrast is negative for any abscess. # Elevated troponins #Type 2 PA likely secondary to demand ischemia 06/17/2024: No complaint of chest pain at the moment 06/16/24: No CP complaint today 06/15/24: NO more trending Trop and No EKG changes with no active typical angina at that moment. plan to recheck the EKG once pt is symptomatic from the possible Symptomatic anemia etc 06/14/24:Patient does not have any chest pain, no ischemic changes noted on EKG Troponins downtrending #Acute kidney injury likely secondary to renal tubular stasis Vs ATN from Sepsis #Trending down Transaminitis from the possible ischemic Liver injury from sepsis 06/18/2024: Creatinine 1.12 and BUN 24 show some improvement in compare to yesterday Monitor I's and O's and encourage optimal fluid replacement 06/17/2024: Creatinine 1.12 and a BUN 24, showed a little bit better than yesterday encourage oral intake and monitor I's and O's 06/16/24: Creatinine going up to 1.26 and BUN 20 on IV Lasix therapy, held with the IV fluids for the reason of pulmonary edema, monitor urine output and daily renal function tests, gentle diuresis -Normalized LFT 06/15/24: Cr 0.82 and trending down with the improvement on the Fluid replacement. LFTs are normalizing now 06/14/24:Creatinine 4.02, baseline creatinine 0.7-0.9 Kidney injury could be secondary to severe GI bleed Continue IV fluid resuscitation Monitor BMP 06/13/2024: Creatinine downtrending, continue IVF 06/14/2024: SUSAN resolved #History of Substance abuse (Methamphetamine induced cardiomyopathy) #CHF with moderately reduced ejection fraction per echo in April 2024 Echo: Normal LV size and wall thickness. Overall systolic function is mildly reduced. LVEF is 45-50%. GDM T as tolerated when able Code Status: Full code DVT prophylaxis: None in view of active GI bleed and possible HIT Analgesia/sedation: None Line/tube: PIV GI prophylaxis: po Protonix from IV Prognosis: Guarded Disposition: Continue H&H monitor for the PRBC transfusion, f/up w/ pathologist peripheral smear for schistocytes, Cont IV Protonix, monitor oxygen sat and titrate the requirement, MOnitor BM and f/up w/ stool study and C diff test, cont medical management, PT Eval and DC plan with possible placement management to [facility]. Resident MD attestation: Patient was seen and examined with attending MD, Dr. Ana Laura SOLORZANO MD Internal Medicine Resident, PGY2 [facility] Date of Service: Jun 18, 2024 Billing Provider: DEMARCUS WILHELM MD Common Visit Codes: [id number] INP/OBS CARE(HIGH) JOHN SOLORZANO RES Jun 18, 2024 10:23 DEMARCUS WILHELM MD Jun 18, 2024 19:29
[2024-06-18 10:57] LABS: ABG BASE EXCESS -2.7 mmol/L (-2.0-3.0); ABG HCO3 18.3 mmol/L (21.0-28.0); ABG OXYGEN SATURATION 86.8 % (94.0-98.0); ABG PCO2 (T) 20.8 mmHg (35.0-48.0); ABG PO2 (T) 46.4 mmHg (83.0-108.0); ALLEN'S TEST POSITIVE; FCOHb 0.6 % (0.5-1.5); FHHb 13.1 % (0.0-5.0); FLOW 5 L/min; FMetHb 0.3 % (0.0-1.5); MODE NASAL CANNULA; PATIENT TEMPERATURE 36.4; TOTAL HEMOGLOBIN 9.8 G/dl (13.5-17.5)
[2024-06-18 11:12] LABS: ATYPICAL PANCA <1:20 titer (Neg:<1:20); CYTOPLASMIC (C-ANCA) <1:20 titer (Neg:<1:20); PERINUCLEAR (P-ANCA) <1:20 titer (Neg:<1:20)
[2024-06-18 14:58] LABS: C DIFF ANTIGEN NEGATIVE (NEGATIVE); C DIFF SPECIMEN=DIARRHEA? ACCEPTABLE; C DIFFICILE TOXINS A&B NEGATIVE (Neg)
[2024-06-19] VITALS (19 sets, daily range): BP systolic 102–141; BP diastolic 72–96; PULSE 52–125; RESP 16–29; TEMP 97–98.1; O2SAT 80–100
[2024-06-19 05:43] LABS: MAGNESIUM 1.8 MG/DL (1.5-2.4); POTASSIUM 3.4 MMOL/L (3.5-5.1)
[2024-06-19] MEDS ORDERED: multivitamins, therapeutics tablet PO SCH (08:00)
[2024-06-19] MEDS ORDERED: VANCOMYCIN LEVEL IV ONE (08:30)
[2024-06-19] MEDS ORDERED: MULTIVIT-MIN/FERROUS GLUCONATE 9 MG/15 ML LIQUID PO SCH (09:34)
[2024-06-19] MEDS: MULTIVIT-MIN/FERROUS GLUCONATE 9 MG/15 ML LIQUID PO ONE (09:40)
[2024-06-19] MEDS: furosemide 20 MG/2 ML vial IV SCH (09:41)
[2024-06-19] MEDS: pantoprazole 40mg Tablet.DR PO SCH (09:41)
[2024-06-19] MEDS: potassium bicarbonate/cit acid 25mEq tablet.effervescent PO SCH (12:07)
--- NOTE | 2024-06-19 13:03 | RADIOLOGY REPORT ---
CHEST RADIOGRAPH Indication: incling requirements of the Oxygen supply Technique: Single frontal view of the chest was obtained Comparison: DI CHEST,SINGLE VIEW on DOS: 06/15/24, DI CHEST,SINGLE VIEW on DOS: 06/13/24, DI CHEST,SINGLE VIEW on DOS: 06/12/24, DI CHEST,SINGLE VIEW on DOS: 06/11/24, DI CHEST,SINGLE VIEW on DOS: 04/14/24, DI CH EST,SINGLE VIEW on DOS: 06/15/24 FINDINGS: Prior CT examination patient had upper lobe centrilobular emphysema and bilateral developing honeycom tiburcio in the lung bases. The current study there is bilateral interstitial prominence more on the righ t than the left suggesting interstitial infiltrates or severe acute interstitial lung disease. Follow-up CT examination of the chest is suggested. Patient has bilateral glenohumeral joint replacements there is a central venous line with tip in the superior vena cava IMPRESSION: 1. Acute on chronic lung disease. Follow-up CT examination of the chest is suggested
[2024-06-19 15:48] LABS: EOSINOPHILS % (AUTO) 0.1 % (0-6); LYMPHOCYTES # (AUTO) 0.7 X10'3 (1.1-4.8); MONOCYTES # (AUTO) 0.2 X10'3 (0-0.9)
[2024-06-19 15:49] LABS: BASOPHILS % (AUTO) 0.2 % (0-1); HEMATOCRIT 25.8 % (42.0-52.0); HEMOGLOBIN 8.6 g/dl (14.0-17.9); LYMPHOCYTES % (AUTO) 9.3 % (21-51); MEAN CORPUSCULAR HEMOGLOBIN 29.6 PG (27.0-31.0); MEAN CORPUSCULAR HGB CONC 33.5 g/dL (33.0-36.5); MEAN CORPUSCULAR VOLUME 88.3 FL (78-98); MEAN PLATELET VOLUME 9.3 FL (7.4-10.4); MONOCYTES % (AUTO) 2.5 % (2-12); NEUTROPHILS # (AUTO) 6.4 X10'3 (1.8-7.7); NEUTROPHILS % (AUTO) 87.9 % (42-75); PLATELET COUNT 174 X10'3 (140-440); RED BLOOD COUNT 2.92 X10'6 (4.70-6.10); RED CELL DISTRIBUTION WIDTH 19.7 % (11.5-14.5); WHITE BLOOD COUNT 7.3 X10'3 (4.5-11.0)
[2024-06-19 16:03] LABS: ALANINE AMINOTRANSFERASE 20 U/L (12-78); ALBUMIN 1.8 G/DL (3.4-5.0); ALBUMIN/GLOBULIN RATIO 0.5 (1.1-1.5); ALKALINE PHOSPHATASE 97 IU/L (46-116); ANION GAP 15 (8-16); ASPARTATE AMINO TRANSFERASE 12 U/L (10-37); BILIRUBIN,TOTAL 0.3 MG/DL (0.1-1.0); BLOOD UREA NITROGEN 56 MG/DL (7-18); BUN/CREATININE RATIO 28.1 (10.0-20.0); CALCIUM 8.3 MG/DL (8.5-10.1); CHLORIDE 101 MMOL/L (99-107); CREATININE 1.99 MG/DL (0.60-1.10); GLUCOSE 194 MG/DL (70-104); POTASSIUM 4.2 MMOL/L (3.5-5.1); SODIUM 137 MMOL/L (135-145); TOTAL CARBON DIOXIDE 21.3 MMOL/L (24-32); TOTAL PROTEIN 5.8 G/DL (6.4-8.2); eCRCL 22 ML/MIN; eGFR 32 ML/MIN
[2024-06-19 16:49] LABS: ABG BASE EXCESS -11.6 mmol/L (-2.0-3.0); ABG HCO3 10.6 mmol/L (21.0-28.0); ABG OXYGEN SATURATION 86.3 % (94.0-98.0); ABG PCO2 (T) 15.8 mmHg (35.0-48.0); ABG PH (T) 7.446 (7.350-7.450); ABG PO2 (T) 54.2 mmHg (83.0-108.0); ALLEN'S TEST POSITIVE; FCOHb 0.3 % (0.5-1.5); FHHb 13.6 % (0.0-5.0); FLOW 12 L/min; FMetHb 0.1 % (0.0-1.5); MODE HIGH FLOW SALTER; TOTAL HEMOGLOBIN 8.8 G/dl (13.5-17.5)
[2024-06-19] MEDS: morphine 2 MG/ML inj. syringe IV STA (17:05)
--- NOTE | 2024-06-19 17:30 | PROGRESS NOTE- Residence ---
Progress Note - Resident Providers to CC Resident Creating Document: JOHN SOLORZANO RES ~ Antibiotic Timeout Antibiotic Ordered?: Yes Subjective He had a AFib episode this afternoon right before he will be sent out to [facility] today showing hypoxia episode with SpO2 around 50-60s with acute shortness of breath and tachycardia around 120s with stable blood pressure 130/90 mm Hg. He was page up for rapid response and ABG was withdrawn, one time dose of IV Cardizem 125 loading dose and IV morphine 2 mg. Objective Vital Signs Date Time Temp Pulse Resp B/P (MAP) Pulse Ox O2 Delivery O2 Flow Rate FiO2 06/19/24 17:05 25 06/19/24 17:04 94 80 06/19/24 11:34 93 12.0 06/19/24 11:05 Nasal Cannula 06/19/24 11:00 97.4 135/96 (109) Result Diagram: 06/19/24 1529 06/19/24 1529 Patient's vitals were stable at the moment with temp 97.4 F, WI 77/minute, RR 21/minute, BP 135/96, pulse oximetry 94% on nasal cannula 12 L/min. General: Well alert, well oriented, not confused, not agitated, not in acute distress, well cooperated during the physical. Wasted muscle and thin look appearance. HEENT: Conjunctive are pink, sclerae clear, no icterus, pupil is equal in both sides, reactive to light, no ear discharge, no pharyngeal erythema or an edema, mouth and lips are dry. Neck: Supple, no JVD, no lymphadenopathy and thyromegaly. 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: No focal neurological deficits, no motor and sensory weakness in all 4 extremities, could move all 4 extremities Musculoskeletal: No joint swelling, deformities, inflammations, and no scoliosis and back tenderness Skin: No active skin lesions and rashes Coagulation Studies Laboratory Tests Test 06/13/24 23:28 06/15/24 05:57 Functional Protein C 57 % (73-180) L Free Protein S 32 % (61-136) L Total Protein S 48 % (60-150) L Anti-Thrombin III Antigen 102 % (72-124) Anti-Thrombin III Activity 94 % (75-135) Prothrombin Time 18.2 SECONDS (9.0-12.0) H INR International Normalized Ratio 1.9 INR Activated Partial Thromboplast Time 39 SECONDS (22-32) H Fibrinogen 650 MG/DL (177-424) H D-Dimer 1.71 MG/L FEU (0-0.50) H DIC Profile Interpretation See dic report Coagulation Comments Assessment Assessment An 83-year-old male with history of GI bleed, perforated peptic ulcer status post repair 10 years ago, s/p segmental resection of ileum, orthopedic surgery presented to the ED with chief complaints of coffee-ground emesis and melanic stools for the past one and half days and acute onset of the sore throat with HOV, and discoloration of the tips of the extremities. Plan Plan # Diarrhea 06/19/2024: He is still having around 6 times of loose bowel last night, at least 3 times in this morning. His C diff infection test was negative. 06/18/2024: C difficile toxin antibody and antigen showed negative Patient loose bowel motion is getting better today. Hold Ensure and other medications can cause the diarrhea and resume Ensure tomorrow again with the LBM improvement. 06/17/2024: Follow up with the C difficile toxin antibody and antigen. He has a bowel movement this morning and more than 3 times yesterday. -FOBT negative. 06/16/24: nurse reported for up to 3 loose BM this morning and pt has a hx of LBM before he came in. -F/up w/ stool study and C diff toxin and AB tests with the higher risk factors of age 83, exposed to broad-spectrum antibiotics, and pt is on Pantoprazole high dose daily. -ABx downgraded to the Flagyl and Rocephin only today. -Pt did not complain for the abd pain. -possible G(-)ve GI infections triggered DIC # A fib w/ RVR on no anticoag- [id number] score three # Acute hypoxic resp failure From the Pulmonary edema 06/19/2024: He has AFib episode this evening right before transferred out to [facility] with a heart rate around 120s and hypoxic episode which demanded for ABG and IV one time dose of 125 mg Cardizem loading dose was given along with IV morphine 2 mg one time dose. We will plan to transferred out to [facility] tomorrow if he is stabilized tonight. 06/18/2024: Had atrial fibrillation attack this morning again but continue p.o. Cardizem 30 mg q.6 hours and continuous telemetry monitoring Repeated ABG done today showed now much different and within normal. Started IV Lasix 20 mg daily. 06/17/2024: Maintaining CVR around 80s, continue p.o. Cardizem 30 mg q.6 hours and monitor blood pressure -good oxygenation with 93 presentation 5 L nasal cannula oxygen supply 06/16/24: Maintain CVR around 90s on PO Cardizem 30 mg q.6 hours with stable BP :Trailed with Weaning off Bipap and currently on the NC 6L maintaining SpO2 93% -pt's coag profile is prolonged with downtrending thrombocytopenia, holding the starting of Anticoag for his AFib with the risk of bleeding is higher than the anticoag effects for thromboembolism on Afib at that moment. 06/15/24: Given one time dose of IV Lasix 40 mg -put the patient on BiPAP therapy after ABG check, recheck ABG again -heart rate was around 150 with blood pressure around 130/80 mm Hg -given one time dose of amiodarone loading dose 150 mg followed by IV push Cardizem 50 mg (0.25 milligram/kg) and followed by p.o. Cardizem 30 mg q.6 hours -monitor vitals and a urine output -we will consult the patient for requirement of anticoagulation with the benefits and risks of anticoagulation therapy. #Dysphagia, passed ST Eval, approved for the Puree and [place] thick diet 06/19/2024: His usual diet is puree and nectar thick, resume p.o. ensure life today. 06/17/2024: He can eat more better than yesterday, HOV is getting better today 06/16/24: continue pureed diet and nectar thick -discussed the diet plan with the protein and [place] ensure Clear for the patient with high calories together with the eyelet maker and appreciate for the consultation. -applied aspiration precautions 06/15/24: [place] thick and puree diet, no difficulty and chocking on swallowing -HOV is still persistent and sore throat as well. -2D echo on 06/12/2024 showed LVEF 65-70%, mitral trace regurgitation with n ormal size left atrium and normal pericardium and no effusion. -CT neck W/O IV contrast on 06/13/2024 showed IMPRESSION: Exam is limited secondary to lack of intravenous contrast. There is also significant streak artifact in the lower neck secondary to the bilateral shoulder arthroplasties. Within this limitation: 1. Frothy opacity in the hypopharynx. No evidence of radiopaque foreign bodies or obvious mass lesions. 2. Heavy atherosclerosis of the [id number]-[id number]-left carotid bulbs. 3. Emphysematous changes of the lung apices. -repeated CT neck and soft tissue W/IV contrast on 06/14/2024 showed Findings: The nasopharynx, oropharynx, hypopharynx, esophagus, and larynx demonstrate normal patency and contour without evidence of a soft tissue mass at this time. Bilaterally, the parotid, submandibular, and sublingual glands are normal in their size, shape, and attenuation without evidence of calcification. The visualized oral tongue, tongue base, and floor of mouth regions demonstrate no obvious mass or abnormal enhancement. Evaluation of the lateral spaces of the neck demonstrates no obvious masses at this time or significant lymphadenopathy. The thyroid gland is normal in size, shape, and attenuation without evidence of calcification. After the administration of contrast, no focal areas of abnormal enhancement are demonstrated. Air between dentures and soft tissues. No wall enhancing soft tissue masses to suggest abscess. Impression: 1. Unremarkable contrast enhanced CT scan of the neck. 06/14/24:Has been having swallowing issues since a week prior to admission Had an episode of aspiration last night, currently NPO we will continue NPO for now Follow up with CT neck for any soft tissue infection/inflammation Follow up with ESR, repeat lactate Continue IV clindamycin q.6 H 06/14/2024: ESR is 75, lactic acid normalized. Ordered CT neck with IV contrast to rule out abscess. Follow up #Possible vascular disease , ruled out the vasculitis Vs PAD 06/16/24: possible thought of the microvascular thrombosis from the part of the possible DIC (Chronic) but pt showed the improvement of good blood supply to the peripheral and no more skin mottling. 06/15/24: Arterial ultrasound on 06/13/2024 showed IMPRESSION: 1. There is no evidence for peripheral vascular insufficiency in the right lower extremity. 2. There is no evidence for peripheral vascular insufficiency in the left lower extremity. 3. No significant focal stenosis is identified. 4. Limited visualization of the posterior tibial artery bilaterally due to small size. ALEXX Ext on 06/13/24 showed IMPRESSION: 1. Normal on the right. 2. Borderline on the left. Arterial ultrasound Doppler on 06/14/2024 showed IMPRESSION: Atherosclerotic disease. No sonographic evidence for hemodynamically significant stenosis involving the bilateral subclavian/ axillary/ brachial / radial / ulnar arteries. Bilateral palmar arches inadequately assessed. Correlate clinically. -NO need to proceed w/ CTA abd aorta and Upper extremeties after undergone multiple imaging to rule out the ischemic causes and pt showed the improvement this morning. 06/14/24:He has a history of smoking, his fingertips and toes are cyanotic in appearance and cold to touch We will get vascular studies, follow up with results 06/14/2024: ESR is high. Ordered CTA bilateral upper extremities and CTA of the abdominal aorta with runoff for tomorrow. Follow up #Possible Upper GI bleed #History of severe reflux esophagitis and upper GI bleed in the past # normochromic normocytic anemia - downtrending anemia #Septic shock -improving, unknown source of origin #Leukocytosis with bandemia #Thrombocytopenia -2/2 from the oossible DIC component # Lactic acidosis- improved #Rhabdomyolysis secondary to above 06/19/2024: Today hemoglobin stabilized around 8.6. 06/18/2024-and FOBT negative. hemoglobin 7.9 which is stabilized and now much different from the previous values, seems like there is no helmet cells in the peripheral smear as per pathologist 06/17/2024: FOBT negative, trending H and H, hemoglobin stabilizing around eight and prepared for possible blood transfusion if hemoglobin dropped down below seven -requested to pathologist to take a look again to previous smear for looking up the helmet cells manually today again since the peripheral smear does not mentioned about the helmet cells in the report. 06/16/24: Hemoglobin trending down to 7.2 which is confirmed, H and H q.6 hours -Type and cross matched done with O+ve and plan to transfuse if hb <7, stable vitals at that moment. -Switched PO Pantoprazole 40 mg BID to IV and cautious with risk of C diff -Elevated lactic acid could be from the G(-) ve/ sepsis induced DIC Vs Hypoxic episodes from the CHF exacerbation with the Pulm HTN -switch the antibiotics into metronidazole along with the ceftriaxone, discontinue clindamycin -F/up w/ FOBT for possible GI Re bleeding -F/up W/pathologist peripheral smear reading for the possible schistocytes in the smear with a concern of DIC 06/15/24: Today rechecked coag profile showed PT 18.2 and aPTT 39, which are prolonged with Fibrinogen 650 and elevated D dimer 1.71 which are indicating that the chronic reactive inflammation or infection status and normochromic normocytic anemia with hemoglobin 8 and platelet count downtrending to 89 wishes most probably due to consumptive anemia and thrombocytopenia from possible upper GI bleeding Vs sepsis. -He is recovering from the possible sepsis POA with the unknown source of origin mostly from the upper GI bleeding and esophagitis Hx. Normalized Lactic acid. -F/up w/ H&H Q6Hrs to trend his Hb for the possible PRBC transfusion with the symptomatic hemoglobin less than seven, monitor bloody bowel movement 06/14/24:H&H on admission 13.2, 40.9 Elevated BUN and creatinine 108, 4.02 likely secondary to severe GI bleed Continues to have melanotic stools Received Protonix 80 IV x1 Continue IV Protonix Has a history of iron-deficiency anemia, per labs from May 05 low iron and ferritin Monitor H&H q.6 hours and transfuse for hemoglobin less than seven GI Dr Keita has been consulted, appreciate recommendations 06/12/2024: Continuing IV fluid resuscitation, Lactic acid downtrending No GI intervention at this time, we will continue to monitor H&H 06/13/2024: H and H today 8.6, 25.5 Changed IV fluids to D5 half-normal saline at 100 mL/hour Continue IV Protonix b.i.d. 06/14/2024: Patient had blood sugar of 59 in the evening. D50 IV push given. Recheck in 1 hour. Continue IV fluids D5 half NS and Protonix On empiric vanc and Zosyn IV fluid bolus and fluid resuscitation Follow up with cultures 06/12/2024: Continue IV antibiotics 06/13/2024 Cultures NGTD DC vanc and Zosyn Started clindamycin IV q.6 H 06/14/2024: Consider TPN if the patient fails swallow evaluation tomorrow. CT neck with IV contrast is negative for any abscess. # Elevated troponins #Type 2 MS likely secondary to demand ischemia 06/17/2024: No complaint of chest pain at the moment 06/16/24: No CP complaint today 06/15/24: NO more trending Trop and No EKG changes with no active typical angina at that moment. plan to recheck the EKG once pt is symptomatic from the possible Symptomatic anemia etc 06/14/24:Patient does not have any chest pain, no ischemic changes noted on EKG Troponins downtrending #Acute kidney injury likely secondary to renal tubular stasis Vs ATN from Sepsis #Trending down Transaminitis from the possible ischemic Liver injury from sepsis 06/19/2024: His creatinine trending up to 1.99, he is still having diarrhea, could not give IV Lasix therapy for his acute hypoxic and AFib episode today. 06/18/2024: Creatinine 1.12 and BUN 24 show some improvement in compare to yesterday Monitor I's and O's and encourage optimal fluid replacement 06/17/2024: Creatinine 1.12 and a BUN 24, showed a little bit better than yesterday encourage oral intake and monitor I's and O's 06/16/24: Creatinine going up to 1.26 and BUN 20 on IV Lasix therapy, held with the IV fluids for the reason of pulmonary edema, monitor urine output and daily renal function tests, gentle diuresis -Normalized LFT 06/15/24: Cr 0.82 and trending down with the improvement on the Fluid replacement. LFTs are normalizing now 06/14/24:Creatinine 4.02, baseline creatinine 0.7-0.9 Kidney injury could be secondary to severe GI bleed Continue IV fluid resuscitation Monitor BMP 06/13/2024: Creatinine downtrending, continue IVF 06/14/2024: SUSAN resolved #History of Substance abuse (Methamphetamine induced cardiomyopathy) #CHF with moderately reduced ejection fraction per echo in April 2024 Echo: Normal LV size and wall thickness. Overall systolic function is mildly reduced. LVEF is 45-50%. GDM T as tolerated when able Code Status: Full code DVT prophylaxis: None in view of active GI bleed and possible HIT Analgesia/sedation: None Line/tube: PIV GI prophylaxis: po Protonix from IV Prognosis: Guarded Disposition: Continue H&H monitor for the PRBC transfusion, f/up w/ pathologist peripheral smear for schistocytes, Cont IV Protonix, monitor oxygen sat and titrate the requirement, MOnitor BM and f/up w/ stool study and C diff test, cont medical management, PT Eval and DC plan with possible placement management to [facility] tomorrow if the patient is stabilized enough tonight. Resident MD attestation: Patient was seen and examined with attending MD, Dr. Ana Laura SOLORZANO MD Internal Medicine Resident, PGY2 [facility] Date of Service: Jun 19, 2024 Billing Provider: DEMARCUS WILHELM MD Common Visit Codes: [id number] INP/OBS CARE(HIGH) JOHN SOLORZANO, RES Jun 19, 2024 17:30 DEMARCUS WILHELM MD Jun 19, 2024 18:29
[2024-06-19] MEDS: diltiazem-NS 100mg/100ml 100 ML IV ONE (18:17)
[2024-06-19] MEDS: nystatin 15 GM powder TP SCH (20:09)
[2024-06-20] VITALS (19 sets, daily range): BP systolic 41–123; BP diastolic 22–83; PULSE 50–90; RESP 20–24; O2SAT 70–93
[2024-06-20] MEDS: NORepinephrine 8mg/ 250ml NS 250 ML IV ONE (01:58)
--- NOTE | 2024-06-20 02:15 | RADIOLOGY REPORT ---
CHEST RADIOGRAPH Indication: ET tube placement Technique: Single frontal view of the chest was obtained COMPARISON: DI CHEST,SINGLE VIEW on DOS: 06/19/24 FINDINGS: Lines and Tubes: Interval insertion of ETT the tip of which is approximately 4.5 cm above the christian. Right IJ central venous catheter again noted. Lungs: Infiltrates noted in both lungs most pronounced at the lung bases, considerably progressed com pared to the prior chest x-ray from a day earlier. No evidence of pulmonary edema. Pleura: No effusion.No pneumothorax. Cardiomediastinal contours: Unremarkable IMPRESSION: ETT in satisfactory position. Bilateral pulmonary infiltrates, considerably progressed compared to th e prior chest x-ray from a day earlier.
[2024-06-20 02:24] LABS: ABG BASE EXCESS -20.4 mmol/L (-2.0-3.0); ABG HCO3 11.2 mmol/L (21.0-28.0); ABG OXYGEN SATURATION 85.2 % (94.0-98.0); ABG PCO2 (T) 48.8 mmHg (35.0-48.0); ABG PH (T) 6.941 (7.350-7.450); ABG PO2 (T) 64.4 mmHg (83.0-108.0); FCOHb 1.3 % (0.5-1.5); FHHb 14.6 % (0.0-5.0); FO2Hb 84.1 % (94.0-98.0); MODE ac/prvc; PATIENT TEMPERATURE 32.3; PEEP 5 cm H2O; RESPIRATORY RATE 20 b/min; TIDAL VOLUME 450 mL; TOTAL HEMOGLOBIN 6.7 G/dl (13.5-17.5)
[2024-06-20] MEDS: NORepinephrine 8mg/ 250ml NS 250 ML IV PRN (03:35)
[2024-06-20] MEDS: epiNEPHrine inj 5 MG in normal saline 250ml IV soln 245 ML IV PRN (03:36)
[2024-06-20] MEDS: sodium bicarbonate (8.4%) 1 mEq/ml syringe IV ONE ×2 (03:36→04:55)
[2024-06-20 03:51] LABS: ALANINE AMINOTRANSFERASE 26 U/L (12-78); ALBUMIN 1.2 G/DL (3.4-5.0); ALBUMIN/GLOBULIN RATIO 0.4 (1.1-1.5); ALKALINE PHOSPHATASE 83 IU/L (46-116); ANION GAP 25 (8-16); BILIRUBIN,TOTAL 0.3 MG/DL (0.1-1.0); BLOOD UREA NITROGEN 64 MG/DL (7-18); BUN/CREATININE RATIO 23.9 (10.0-20.0); CALCIUM 9.8 MG/DL (8.5-10.1); CHLORIDE 105 MMOL/L (99-107); CREATININE 2.68 MG/DL (0.60-1.10); GLUCOSE 136 MG/DL (70-104); MAGNESIUM 2.6 MG/DL (1.5-2.4); SODIUM 143 MMOL/L (135-145); TOTAL PROTEIN 4.1 G/DL (6.4-8.2); eCRCL 17 ML/MIN; eGFR 23 ML/MIN
[2024-06-20 03:53] LABS: ASPARTATE AMINO TRANSFERASE 52 U/L (10-37); PHOSPHORUS 11.6 MG/DL (2.3-4.5); POTASSIUM 4.7 MMOL/L (3.5-5.1)
[2024-06-20 04:02] LABS: TOTAL CARBON DIOXIDE 12.6 MMOL/L (24-32)
[2024-06-20 04:41] LABS: MAGNESIUM 2.5 MG/DL (1.5-2.4); POTASSIUM 3.7 MMOL/L (3.5-5.1)
[2024-06-20 04:44] LABS: APTT 43 SECONDS (22-32); INR 2.3 INR; PROTHROMBIN TIME 21.9 SECONDS (9.0-12.0)
[2024-06-20 04:57] LABS: EOSINOPHILS % (AUTO) 0.8 % (0-6); MEAN CORPUSCULAR VOLUME 92.3 FL (78-98); RED BLOOD COUNT 2.35 X10'6 (4.70-6.10)
[2024-06-20 04:59] LABS: BASOPHILS % (AUTO) 0.5 % (0-1); LYMPHOCYTES # (AUTO) 1.6 X10'3 (1.1-4.8); LYMPHOCYTES % (AUTO) 38.5 % (21-51); MEAN CORPUSCULAR HEMOGLOBIN 29.6 PG (27.0-31.0); MEAN CORPUSCULAR HGB CONC 32.1 g/dL (33.0-36.5); MEAN PLATELET VOLUME 8.9 FL (7.4-10.4); MONOCYTES # (AUTO) 0.1 X10'3 (0-0.9); MONOCYTES % (AUTO) 1.5 % (2-12); NEUTROPHILS # (AUTO) 2.4 X10'3 (1.8-7.7); NEUTROPHILS % (AUTO) 58.7 % (42-75); PLATELET COUNT 86 X10'3 (140-440); RED CELL DISTRIBUTION WIDTH 19.9 % (11.5-14.5); WHITE BLOOD COUNT 4.1 X10'3 (4.5-11.0)
[2024-06-20] MEDS: epiNEPHrine inj 10 MG in normal saline 250ml IV soln 240 ML IV SCH (05:12)
[2024-06-20] MEDS: NORepinephrine 32 MG in normal saline 250ml IV soln 218 ML IV SCH (05:12)
[2024-06-20 05:50] LABS: HEMATOCRIT 21.7 % (42.0-52.0)
[2024-06-20] MEDS: vasopressin inj. 40 UNIT in normal saline 50ml IV soln 38 ML IV SCH (06:06)
[2024-06-20] MEDS: sodium bicarbonate 1meq/ml inj 150 ML in dextrose 5%-water 1,000 ML IV SCH (06:14)
[2024-06-20] MEDS: atropine 0.1mg/ml 10ml syringe ONE (06:15)
--- NOTE | 2024-06-20 06:49 | ELECTROCARDIOGRAPH REPORT ---
[facility] Test Date: 2024-06-20 Test Time: 01:28:59 Pat Name: CINDI HYMAN Department: 3rd FLOOR PCU Room: [facility] 2003 A Gender: M Street Light Inspector: : 1940 Requested By: JUDY HANEY Order Number: [id number] Reading MD: Dr. LINETTE Salomon Measurements Intervals [place] Rate: 62 P: 0 NH: 0 QRS: -18 QRSD: 115 T: 88 QT: 505 QTc: 513 Interpretive Statements Age not entered, assumed to be 52 years old for purpose of ECG interpretation Atrial fibrillation Nonspecific intraventricular conduction delay Borderline low voltage, extremity leads Repol abnrm suggests ischemia, diffuse leads Electronically Signed On 06-20-2024 11:04:[address] LINETTE Salomon Please click the below link to view image of tracing.
[2024-06-20 07:23] LABS: NUCLEATED RED BLOOD CELLS 9 /100WBC (0-0); TOTAL CELLS COUNTED 100
--- NOTE | 2024-06-20 07:23 | RADIOLOGY REPORT ---
EXAM: XR Chest, 1 View CLINICAL INDICATION: intubated TECHNIQUE: Frontal view of the chest. COMPARISON: DI CHEST,SINGLE VIEW on DOS: 06/20/24, DI CHEST,SINGLE VIEW on DOS: 06/19/24, DI CHEST,SI NGLE VIEW on DOS: 06/15/24, DI CHEST,SINGLE VIEW on DOS: 06/13/24, DI CHEST,SINGLE VIEW on DOS: 06/12/24 FINDINGS: LUNGS AND PLEURAL SPACES: Pulmonary congestion and edema. Pneumonia cannot be excluded. Bilateral pleural effusions. No pneumothorax. HEART: Unremarkable. No cardiomegaly. MEDIASTINUM: Unremarkable. Normal mediastinal contour. BONES/JOINTS: Unremarkable. No acute fracture. TUBES, LINES AND DEVICES: The endotracheal tube (ETT) is in satisfactory position. Right internal jugular central venous catheter tip in the superior vena cava. Enteric tube tip in the stomach. OTHER FINDINGS: . . IMPRESSION: 1. Pulmonary congestion and edema. Pneumonia cannot be excluded. 2. Bilateral pleural effusions.
[2024-06-20 07:27] LABS: ABG BASE EXCESS -17.3 mmol/L (-2.0-3.0); ABG HCO3 14.5 mmol/L (21.0-28.0); ABG OXYGEN SATURATION 49.8 % (94.0-98.0); ABG PCO2 (T) 65.4 mmHg (35.0-48.0); ABG PH (T) 6.923 (7.350-7.450); ABG PO2 (T) 34.9 mmHg (83.0-108.0); ALLEN'S TEST Modified; FCOHb 1.2 % (0.5-1.5); FHHb 49.5 % (0.0-5.0); FMetHb 0.1 % (0.0-1.5); FO2Hb 49.2 % (94.0-98.0); MODE VENT - PRVC; PATIENT TEMPERATURE 31.8; PEEP 5 cm H2O; RESPIRATORY RATE 24 b/min; TIDAL VOLUME 450 mL; TOTAL HEMOGLOBIN 5.7 G/dl (13.5-17.5)
[2024-06-20 07:27] LABS: ANISOCYTOSIS 2+; BURR CELLS 2+; PLATELET ESTIMATE DECREASED; POLYCHROMASIA 1+; SCHISTOCYTES FEW; TARGET CELLS FEW
[2024-06-20 07:28] LABS: ELLIPTOCYTES FEW
[2024-06-20] MEDS ORDERED: rocuronium 10mg/ml inj IV ONE (08:00)
== END 2024-06-20 10:56 | DRG 871 ==
LOC: ER 11:02 → ED HOLD 17:58 → CICU 2S 06-12 14:30 → PCU 3S 06-13 10:32 → CICU 2S 06-20 02:06
PROVIDERS: ADMIT Internal Medicine Critical Care Medicine; ATTEND Internal Medicine Critical Care Medicine
PROC: B4201ZZ Computerized Tomography (CT Scan) of Abdominal Aorta using Low Osmolar Contrast (ICD-10-PCS; principal; 2024-06-11)
PROC: B4241ZZ Computerized Tomography (CT Scan) of Superior Mesenteric Artery using Low Osmolar Contrast (ICD-10-PCS; 2024-06-11)
PROC: B4281ZZ Computerized Tomography (CT Scan) of Bilateral Renal Arteries using Low Osmolar Contrast (ICD-10-PCS; 2024-06-11)
PROC: B42C1ZZ Computerized Tomography (CT Scan) of Pelvic Arteries using Low Osmolar Contrast (ICD-10-PCS; 2024-06-11)
PROC: B42H1ZZ Computerized Tomography (CT Scan) of Bilateral Lower Extremity Arteries using Low Osmolar Contrast (ICD-10-PCS; 2024-06-11)
PROC: B4211ZZ Computerized Tomography (CT Scan) of Celiac Artery using Low Osmolar Contrast (ICD-10-PCS; 2024-06-11)
PROC: 02HV33Z Insertion of Infusion Device into Superior Vena Cava, Percutaneous Approach (ICD-10-PCS; 2024-06-12)
PROC: 5A09357 Assistance with Respiratory Ventilation, Less than 24 Consecutive Hours, Continuous Positive Airway Pressure (ICD-10-PCS; 2024-06-15)
PROC: 5A09357 Assistance with Respiratory Ventilation, Less than 24 Consecutive Hours, Continuous Positive Airway Pressure (ICD-10-PCS; 2024-06-16)
PROC: 5A09357 Assistance with Respiratory Ventilation, Less than 24 Consecutive Hours, Continuous Positive Airway Pressure (ICD-10-PCS; 2024-06-17)
PROC: 5A09357 Assistance with Respiratory Ventilation, Less than 24 Consecutive Hours, Continuous Positive Airway Pressure (ICD-10-PCS; 2024-06-18)
PROC: 5A09357 Assistance with Respiratory Ventilation, Less than 24 Consecutive Hours, Continuous Positive Airway Pressure (ICD-10-PCS; 2024-06-19)
PROC: 5A0935A Assistance with Respiratory Ventilation, Less than 24 Consecutive Hours, High Flow/Velocity Cannula (ICD-10-PCS; 2024-06-19)
PROC: 5A1935Z Respiratory Ventilation, Less than 24 Consecutive Hours (ICD-10-PCS; 2024-06-20)
PROC: 0BH17EZ Insertion of Endotracheal Airway into Trachea, Via Natural or Artificial Opening (ICD-10-PCS; 2024-06-20)
DX: A41.9 Sepsis, unspecified organism (principal); D65 Disseminated intravascular coagulation [defibrination syndrome]; R65.21 Severe sepsis with septic shock; I21.A1 Myocardial infarction type 2; N17.0 Acute kidney failure with tubular necrosis; J96.01 Acute respiratory failure with hypoxia; E87.20 Acidosis, unspecified; M62.82 Rhabdomyolysis; K92.0 Hematemesis; I50.22 Chronic systolic (congestive) heart failure; I42.7 Cardiomyopathy due to drug and external agent; E11.649 Type 2 diabetes mellitus with hypoglycemia without coma; K21.00 Gastro-esophageal reflux disease with esophagitis, without bleeding; R13.10 Dysphagia, unspecified; G47.00 Insomnia, unspecified; F15.10 Other stimulant abuse, uncomplicated; Z90.49 Acquired absence of other specified parts of digestive tract; Z79.899 Other long term (current) drug therapy; Z87.891 Personal history of nicotine dependence; Z87.11 Personal history of peptic ulcer disease
CPT/HCPCS: 36415; 36600; 70490; 70491; 71045; 74174; 80053; 80202; 80305; 80320; 81001; 81479; 82272; 82550; 82553; 82803; 82810; 82947; 82948; 83605; 83690; 83735; 83874; 83880; 83891; 83894; 83898; 84100; 84132; 84145; 84443; 84484; 85007; 85018; 85025; 85027; 85300; 85301; 85303; 85305; 85306; 85379; 85384; 85610; 85651; 85730; 86038; 86146; 86147; 86256; 86885; 86900; 86901; 86920; 87040; 87045; 87046; 87081; 87088; 87324; 87449; 87502; 87503; 92508; 92616; 93005; 93308; 93922; 93925; 93930; 94002; 94660; 94760; 96361; 96365; 96375; 97110; 97116; 97162; 97530; 99285; A4333; A4340; A4615; A4620; A5200; A6209; A6212; A6213; A6250; A6260; A6590; C1751; C1758; G0378; J0171; J0282; J0461; J0696; J1171; J1938; J1940; J2270; J2405; J2470; J2543; J3370; J3372; J3475; J3480; J3490; J7030; J7040; J7050; J7070; J7120; Q9967